=== PATIENT | male | born 1960 | race Caucasian/White ===

== ENCOUNTER 2019-06-05 17:12 | Emergency (ER) | payer MEDICARE, SELFPAY ==
[2019-06-05] VITALS (9 sets, daily range): BP systolic 98–112; BP diastolic 56–76; PULSE 80–105; RESP 12–20; TEMP 37; O2SAT 90–100
--- NOTE | ~2019-06-05 | XR_ITS ---
XR chest 2V 06/05/2019 18:24 Indication: Shortness of breath. Productive cough. Procedure: PA and lateral views of the chest Comparison: 10/29/2017 Findings: Chronic interstitial opacities predominantly affecting the lower lungs. Heart size normal. No pleural effusion or pneumothorax. No focal consolidation. Chronic apical pleural thickening. No ac three affiliated osseous abnormality. Small hiatal hernia. Impression: 1: Chronic interstitial changes of the lung bases which may reflect edema, pneumonia and/or atelectas is. Reviewed, dictated and finalized at [facility]. Reviewed, dictated and finalized at [facility]. Impression: 1: Chronic interstitial changes of the lung bases which may reflect edema, pneu monia and/or atelectasis.
--- NOTE | 2019-06-05 18:07 | ED.GENADULT ---
HPI - General Adult General Chief complaint: Upper Respiratory Infection Stated complaint: POSSIBLE PNEUMONIA Time Seen by Provider: 06/05/19 17:57 Source: patient and family Mode of arrival: ambulatory Limitations: physical limitation (Down's Syndrome) History of Present Illness HPI narrative: Pt is a 59 y/o male who presents to the ED with c/o productive cough. According to the pt's family, he was recently hospitalized for pneumonia. She notes that the pt was evaluated by his home health nurse this afternoon, and states that after she examined the pt's sputum, she advised him to come to the ED. Pt notes that he currently feels relatively okay and denies any fever, ABD pain, CP, or nausea. HPI limited due to pt's Hx of Down Syndrome. Majority of HPI given by pt's family. Associated symptoms: other (none) Related Data Home Medications Medication Instructions Recorded Confirmed cholecalciferol (vitamin D3) unit 06/05/19 [Vitamin D3] famotidine 20 mg PO DAILY 06/05/19 06/05/19 levothyroxine 75 mcg PO DAILY 06/05/19 06/05/19 olanzapine 2.5 mg PO BID 06/05/19 06/05/19 vitamin B complex 1 tablet PO DAILY 06/05/19 06/05/19 Allergies Allergy/AdvReac Type Severity Reaction Status Date / Time No Known Allergies Allergy Unknown Verified 05/23/19 14:47 Review of Systems Review of Systems: All systems reviewed & are unremarkable except as noted in HPI and below Constitutional: Constitutional: Denies fever(s) Cardiovascular: Cardiovascular: Denies chest pain Respiratory: Respiratory: Reports cough (productive) Gastrointestinal: Gastrointestinal: Denies abdominal pain and Denies nausea [facility] Past Medical History Medical History Down's syndrome (Acute) Pneumonia (Acute) Social History Social History Gender identity (if verbalized by the patient): Male Exam Const: General: no acute distress and alert HENMT: Head: normal to inspection Eyes: Pupils: PERRL Neck: Neck: normal visual inspection and no lymphadenopathy Chest: Chest palpation & inspection: normal inspection of the chest Resp: Effort & Inspection: normal respiratory effort Cardio: Rate: regular rate Rhythm: regular rhythm GI: Palpation (GI): Yes soft Skin: General skin exam: normal color Extrem: General: normal to inspection Psych: Mental Status: mental status grossly normal Course Course Emergency Course: Inform patient and the family about his lab work, chest x-ray findings. This time his O2 saturations are 96 to 97% on room air. He does feel comfortable going home. Vital Signs Vital signs: Vital Signs Temperature 37.0 C 06/05/19 17:31 Pulse Rate 80 06/05/19 17:31 Respiratory Rate 20 06/05/19 17:31 Blood Pressure 112/76 06/05/19 17:31 Pulse Oximetry 99 06/05/19 17:31 Temperature 37.0 C 06/05/19 17:31 Pulse Rate 86 06/05/19 19:15 Respiratory Rate 12 06/05/19 19:15 Blood Pressure 98/56 L 06/05/19 19:15 Pulse Oximetry 96 06/05/19 19:15 Medical Decision Making Vital Signs Vital Signs: Vital Signs Temperature 37.0 C 06/05/19 17:31 Pulse Rate 80 06/05/19 17:31 Respiratory Rate 20 06/05/19 17:31 Blood Pressure 112/76 06/05/19 17:31 Pulse Oximetry 99 06/05/19 17:31 Temperature 37.0 C 06/05/19 17:31 Pulse Rate 86 06/05/19 19:15 Respiratory Rate 12 06/05/19 19:15 Blood Pressure 98/56 L 06/05/19 19:15 Pulse Oximetry 96 06/05/19 19:15 Lab Data Result diagrams: 06/05/19 18:20 06/05/19 18:20 Labs: Lab Results 06/05/19 06/05/19 Range/Units 18:20 18:20 WBC 7.0 (4.5-10.0) K/mm3 RBC 4.09 L (4.6-6.20) M/mm3 Hgb 12.5 L (14.0-18.0) g/dL Hct 38.9 L (42.0-52.0) % MCV 95.1 (80-100) fl MCH 30.6 (26-34) pg MCHC 32.1 (32-36) g/dl RDW 16.5 H (11.5-14.5) % Plt Count 623 H (150-375) k/mm3 MPV 10.3 (7.4-10.4) fl Immature Gran % (Auto)
[2019-06-05 18:28] LABS: Basophils Absolute Auto 0.1 K/mm3 (0.0-0.1); Basophils Percent Auto 1.1 % (0.2-1.2); Eosinophils Absolute Auto 0.1 K/mm3 (0-0.3); Eosinophils Percent Auto 1.6 % (0-4.4); Hematocrit 38.9 % (42.0-52.0); Hemoglobin 12.5 g/dL (14.0-18.0); Immature Granulocyte Absolute 0.06 K/mm3 (0.00-0.031); Immature Granulocyte Percent A 0.9 % (0-0.5); Lymphocytes Absolute Auto 1.12 K/mm3 (0.9-3.2); Lymphocytes Percent Auto 15.9 % (18.3-44.2); Mean Corpuscular HGB Conc 32.1 g/dl (32-36); Mean Corpuscular Hemoglobin 30.6 pg (26-34); Mean Corpuscular Volume 95.1 fl (80-100); Mean Platelet Volume 10.3 fl (7.4-10.4); Monocytes Absolute Auto 0.4 K/mm3 (0.1-0.6); Neutrophils Absolute Auto 5.2 K/mm3 (1.3-6.7); Neutrophils Percent Auto 74.5 % (45.5-73.1); Platelet Count Result 623 k/mm3 (150-375); Red Blood Count 4.09 M/mm3 (4.6-6.20); Red Cell Distribution Width 16.5 % (11.5-14.5)
[2019-06-05 18:40] LABS: Alanine Aminotransferase 22 U/L (4-50); Albumin Level 3.8 g/dL (3.5-5.1); Alkaline Phosphatase 107 U/L (38-126); Aspartate Amino Transferase 34 U/L (17-59); Bilirubin,Total 0.2 mg/dL (0.2-1.3); Blood Urea Nitrogen 22 mg/dL (9-20); Carbon Dioxide 30 mmol/L (22-30); Chloride 105 mmol/L (98-107); Estimated CRCL calculation 51 ml/min; Estimated Glomerular Filt Rate > 60; Glucose 97 mg/dL (75-110); Potassium 4.2 mmol/L (3.4-5.0); Sodium 143 mmol/L (137-145)
[2019-06-05 18:48] LABS: NT Pro B Type Natriuretic Pept 91 PG/ML (5-100)
== END 2019-06-05 19:10 | disposition home or self-care (01) ==
PROVIDERS: Emergency Provider Family Medicine
DX: J40 Bronchitis, not specified as acute or chronic (principal); B34.9 Viral infection, unspecified; R91.8 Other nonspecific abnormal finding of lung field; Q90.9 Down syndrome, unspecified
CPT/HCPCS: 36415; 71046; 80053; 83880; 85025; 99283

== ENCOUNTER 2019-10-19 13:03 | Inpatient (IN) | payer MEDICARE, SELFPAY ==
[2019-10-19] VITALS (41 sets, daily range): BP systolic 91–130; BP diastolic 68–86; PULSE 74–88; RESP 9–21; TEMP 35.7–36.2; O2SAT 92–100; BMI 19.3
--- NOTE | ~2019-10-19 | XR_ITS ---
EXAMINATION: XR chest 1V portable DATE: 10/28/2019 05:40 INDICATION: Subacute emphysema TECHNIQUE: frontal view of the chest was obtained. COMPARISON: 10/27/2019 FINDINGS: Right internal jugular central venous catheter with distal tip near the superior cavoatrial junction. Interval decrease in the subcutaneous emphysema at the bilateral chest and neck. Patchy airspace opacities in the bilateral mid and lower lung zones. Small bilateral pleural effusion s. The cardiomediastinal silhouette is normal. Cholecystectomy clips and surgical drain in the right upper quadrant. IMPRESSION: 1. Decrease in the amount of subcutaneous emphysema at the bilateral chest and neck. 2. Bilateral basilar predominant patchy airspace opacities which could represent atelectasis and/or p neumonia. 3. Small bilateral pleural effusions. Reviewed, dictated and finalized at [facility]. IMPRESSION: 1. Decrease in the amount of subcutaneous emphysema at the bilateral chest and neck. 2. Bilateral basilar predominant patchy airspace opacities which could represen t atelectasis and/or pneumonia. 3. Small bilateral pleural effusions.
--- NOTE | ~2019-10-19 | XR_ITS ---
EXAMINATION: XR abdomen obstructive series DATE: 10/23/2019 06:34 INDICATION: Fecal impaction TECHNIQUE: Supine and upright views of the abdomen. FINDINGS: No prior studies for comparison. The visualized lung parenchyma is normal.. There is a nonobstructive bowel gas pattern. Gas and stool are seen throughout the colon to the level of the rectum. There is no free air. Moderate colonic fe sania loading. There are pelvic phleboliths. Retrocardiac airspace disease, atelectasis versus pneumoni a. IMPRESSION: 1. No acute abdominal abnormality. 2: Retrocardiac airspace disease, atelectasis versus pneumonia. Reviewed, dictated and finalized at [facility].
--- NOTE | ~2019-10-19 | XR_ITS ---
XR chest port-a-cath/central 10/27/2019 11:54 Indication: Central line placement. Procedure: AP portable chest Comparison: Comparison to multiple prior studies sequentially, with oldest reviewed study dated 10/29. Findings: Right IJ central line tip caudal aspect of the SVC. Interval development of interstitial ed demetrice. Left basilar consolidation may represent edema, atelectasis or less likely pneumonia. Interval d evelopment of extensive subcutaneous emphysema. No pneumothorax is identified. Impression: 1: Interval development of interstitial edema. 2: Focal consolidation left lower lobe may represent edema, atelectasis and/or pneumonia. 3: Extensive subcutaneous emphysema has developed since prior examination. Reviewed, dictated and finalized at [facility]. Impression: 1: Interval development of interstitial edema. 2: Focal consolidation left lower lobe may represent edema, atelectasis and/or pneumonia. 3: Extensive subcutaneous emphysema has developed since prior examination.
--- NOTE | ~2019-10-19 | CT_ITS ---
EXAMINATION: CT abdomen pelvis wo con DATE: 10/21/2019 08:36 INDICATION: Leukocytosis. Hypernatremia, hypokalemia, dehydration TECHNIQUE: Computed tomography (CT) of the abdomen and pelvis was performed without intravenous contr ast. Automated exposure control and iterative reconstruction technique were employed. Exam dose: 334 .85 mGy-cm total exam DLP. COMPARISON: None. FINDINGS: There is patchy consolidation in both lower lobes, particularly in the dependent lower lobe s, left greater than right. Heart size is within normal limits. No pericardial or pleural effusion. There is a small sliding hiatal hernia. There appears to be some circumferential soft tissue thickeni ng of the distal esophagus; consider endoscopy or upper gastrointestinal series for further evaluatio n The gallbladder is distended. There is an approximately 1 cm gallstone. Gallbladder wall thickness is not optimally determined. No pericholecystic fat stranding or fluid is evident. Consider gallbladder ultrasound for further evaluation. No bile duct or pancreatic duct dilatation. No hepatic, splenic, pancreatic, and adrenal or renal spa ce-occupying mass lesion is evident on this limited noncontrast examination. There are hepatic and more numerous splenic calcified granulomas consistent with old granulomatous di sease. There is an approximately 2.5 mm nonobstructing upper pole left renal calculus. There are 2 smaller n onobstructing lower pole left renal calculi. No right renal calculus. No ureteral calculus or hydroureteronephrosis. Normal caliber of the abdominal aorta with minimal calcification. No intraperitoneal or retroperitone al or pelvic mass lesion or adenopathy or ascites is detected. Multiple prostate calcifications. The urinary biliary bladder appears unremarkable on this limited no ncontrast examination. There is diffuse circumferential soft tissue thickening of the rectosigmoid wall, measuring up to 7 m m dimension. Consider stercoral proctitis. There is a prominent amount of fecal material within the r ectum and to lesser extent colon, with some liquid stool in the cecum and ascending and transverse co latonia. There are fluid distended nondilated small bowel segments and small bowel air-fluid levels. Othe rwise there is no bowel obstruction, bowel wall thickening, pneumatosis or intraperitoneal free air. Prominent Schmorl's nodes are noted at the superior vertebral endplate of T12 and at the vertebral en dplates at L1-2. There is severe degenerative disc disease at L2-3. IMPRESSION: Patchy consolidation in both lower lobes, left greater than right Hiatal hernia, suggestion of thickening of the distal esophageal wall, possibly due to esophagitis. C onsider upper gastrointestinal series or endoscopy for further evaluation Cholelithiasis, distended gallbladder Gallbladder wall thickness is not well demonstrated; consider gallbladder ultrasound for further eval uation Nonobstructive left nephrolithiasis Small and large bowel fluid levels, suggesting enterocolitis Up to 7 mm thickness of the rectosigmoid wall associated with fecal impaction; consider stercoral pro ctocolitis; no evidence of perforation Reviewed, dictated and finalized at [facility]. Reviewed, dictated and finalized at [facility]. IMPRESSION: Patchy consolidation in both lower lobes, left greater than right Hiatal hernia, suggestion of thickening of the distal esophageal wall, possibly due to esophagitis. Consider upper gastrointestinal series or endoscopy for fu rther evaluation Cholelithiasis, distended gallbladder Gallbladder wall thickness is not well demonstrated; consider gallbladder ultra sound for further evaluation Nonobstructive left nep
--- NOTE | ~2019-10-19 | US_ITS ---
EXAMINATION: US right upper quadrant DATE: 10/21/2019 15:11 INDICATION: Leukocytosis TECHNIQUE: Multiple grayscale and Doppler ultrasound images of the abdomen were obtained. COMPARISON: CT from today FINDINGS: Bowel gas obscures visualization of the pancreas. The visualized portions of the pancreas a re unremarkable. The liver is normal with normal echogenicity and echotexture. No surface nodularity. Normal hepatopetal flow in the main portal vein. The gallbladder is distended and contains sludge an d a 1.3 cm stone. No definite pericholecystic fluid or gallbladder wall thickening are seen. The norm al common bile duct measures 5 mm. There was no sonographic Goyal sign. IMPRESSION: 1. Cholelithiasis, gallbladder sludge, and gallbladder distention without pericholecystic fluid or ga llbladder wall thickening. Findings are equivocal for acute cholecystitis. Consider nuclear hepatobil iary scan. Reviewed, dictated and finalized at [facility]. IMPRESSION: 1. Cholelithiasis, gallbladder sludge, and gallbladder distention without peric holecystic fluid or gallbladder wall thickening. Findings are equivocal for acu te cholecystitis. Consider nuclear hepatobiliary scan.
--- NOTE | ~2019-10-19 | XR_ITS ---
EXAMINATION: XR chest 2V DATE: 10/19/2019 14:35 INDICATION: Unresponsive TECHNIQUE: frontal and lateral views of the chest were obtained. COMPARISON: Chest radiograph dated 06/05/[address] dated 05/24/2019 FINDINGS: Mild dependent atelectasis in the posterior lungs on the crosstable lateral projection. Aside from un changed mild biapical pleural-parenchymal scarring the lungs appear clear on the frontal projections with no suspicious airspace opacities, pulmonary edema, pleural effusion or pneumothorax. The cardiom ediastinal silhouette is normal. A couple small calcified paraesophageal lymph nodes project posterio r to the right heart. IMPRESSION: 1. No acute cardiopulmonary disease. Reviewed, dictated and finalized at [facility].
--- NOTE | ~2019-10-19 | NM_ITS ---
EXAMINATION: NM hepatobiliary w pharm DATE: 10/22/2019 16:24 INDICATION: Cholelithiasis presenting with dilated gallbladder and right upper quadrant pain concern ing for acute cholecystitis. COMPARISON: CT and ultrasound dated 10/21/2019 TECHNIQUE: 5.2 mCi Tc-99m mebrofenin (Choletec) was administered intravenously. Scintigraphic images of the abdomen were obtained for one hour. 2 mg morphine was administered by slow intravenous infusi on, and imaging was continued for 30 minutes. FINDINGS: There is normal clearance of radiotracer from the blood pool. There is homogeneous tracer uptake by t he liver. Activity progresses to the common bile duct and subsequently the bowel bowel. No evident a ctivity within the gallbladder either before or after morphine administration which be consistent wit h acute cholecystitis. IMPRESSION: 1. No activity within the gallbladder either before or after morphine administration consistent with acute cholecystitis. Reviewed, dictated and finalized at [facility]. IMPRESSION: 1. No activity within the gallbladder either before or after morphine administ ration consistent with acute cholecystitis.
--- NOTE | ~2019-10-19 | XR_ITS ---
EXAMINATION: XR chest 2V DATE: 11/01/2019 09:24 INDICATION: Pneumonia TECHNIQUE: frontal and lateral views of the chest were obtained. COMPARISON: Chest radiograph dated 10/29/2019 FINDINGS: Right internal jugular central venous catheter with distal tip near the superior cavoatrial junction. Small bilateral pleural effusions. Opacities in the bilateral lower lobes which could represent asso ciated atelectasis and/or pneumonia. Remainder of the lungs are clear. No pneumothorax. The cardiomed iastinal silhouette is normal. Cholecystectomy clips in the upper abdomen. IMPRESSION: 1. Small bilateral pleural effusions with opacities in the dependent bilateral lower lobes which coul d represent associated atelectasis and/or pneumonia. Reviewed, dictated and finalized at location [facility]. IMPRESSION: 1. Small bilateral pleural effusions with opacities in the dependent bilateral lower lobes which could represent associated atelectasis and/or pneumonia.
--- NOTE | ~2019-10-19 | CT_ITS ---
EXAMINATION: CT brain wo con EXAM DATE: 10/20/2019 14:26 INDICATION: Altered mental status. TECHNIQUE: Spiral CT of the head was performed without contrast. Axial, coronal and sagittal images were reviewed. The dose-length product (DLP) for this examination was 605.33 mGy-cm. The exposure w as tailored according to patient size, and iterative reconstruction (ASIR) was used as additional dos e reduction technique. Comparison is made to prior examination from 05/24/2019. FINDINGS: There is no acute intraparenchymal hemorrhage. No evidence of intraparenchymal brain mass lesion. No evidence of acute infarction. Please note that initial head CT has limited sensitivity f or small or acute infarctions. There is mild periventricular and subcortical hypodensity, nonspecific but probably related to small vessel ischemic disease. There is ventricular prominence out of prop ortion to sulci which is suspected most likely central atrophy rather than hydrocephalus. Normal pre ssure hydrocephalus cannot be excluded (clinical triad ataxia/gait disturbance, dementia, urinary inc ontinence). This does not appear significantly changed. There is intracranial carotid arterioscleros is. There are no extra-axial collections. There is no mass effect or midline shift. The orbits are unremarkable. Soft tissue is unremarkable. The visualized sinuses and mastoid air cells are well a erated. IMPRESSION: 1. No acute intracranial findings. 2. Chronic ventricular dilation, more likely central atrophy than NPH. 3. Mild microangiopathy. Reviewed, dictated and finalized at location A.
--- NOTE | ~2019-10-19 | XR_ITS ---
EXAMINATION: XR chest 1V portable INDICATION: Abnormal chest x-ray, bilateral infiltrates TECHNIQUE: Portable AP chest at 0753 hours COMPARISON: 10/28/2019 FINDINGS: A right internal jugular catheter ends with its tip at the superior cavoatrial junction. Bi basilar airspace opacities persist without significant change. There is no pleural effusion or pneumo thorax. Previously described subcutaneous edema has decreased. The cardiomediastinal silhouette is no rmal. IMPRESSION: 1. Stable bibasilar airspace opacities, consistent with atelectasis versus pneumonia. 2. Decreased subcutaneous edema. Reviewed, dictated and finalized at location B. IMPRESSION: 1. Stable bibasilar airspace opacities, consistent with atelectasis versus pneu monia. 2. Decreased subcutaneous edema.
--- NOTE | 2019-10-19 13:21 | ED.GENADULT ---
HPI - General Adult General Chief complaint: Weakness Stated complaint: weakness Time Seen by Provider: 10/19/19 13:10 Source: RN notes reviewed and other (Nursing facility staff) Mode of arrival: EMS Limitations: clinical condition History of Present Illness HPI narrative: A 59 y/o male pt presents to the ED, via EMS from nursing facility, with c/o weakness and decreased intake of food and liquid x a few days. Per RN notes, nursing facility states that the pt's family normally comes to visit/feed the pt daily and d/t recent visiting restrictions they have not been able to feed the pt. Nursing facility staff reports that the pt is not responding or receptive to staff care and pt is not eating or taking food. Pt is usually able to walk with assistance and communicate at baseline. Pt has a hx of down syndrome. A complete HPI is limited d/t pt's clinical condition. MD complaint: Weakness Onset (ago): day(s) Associated symptoms: other (decreased food and liquid intake) Related Data Home Medications Medication Instructions Recorded Confirmed cholecalciferol (vitamin D3) unit 06/05/19 [Vitamin D3] famotidine 20 mg PO DAILY 06/05/19 06/05/19 levothyroxine 75 mcg PO DAILY 06/05/19 06/05/19 olanzapine 2.5 mg PO BID 06/05/19 06/05/19 vitamin B complex 1 tablet PO DAILY 06/05/19 06/05/19 alprazolam [Xanax] 0.5 mg PO BID 10/19/19 enoxaparin [Lovenox] 40 mg SUBCUT DAILY 10/19/19 famotidine [Pepcid] 20 mg PO DAILY 10/19/19 mirtazapine [Remeron] 7.5 mg PO HS 10/19/19 paroxetine HCl 10 mg PO QAM 10/19/19 pravastatin 20 mg PO DAILY 10/19/19 Allergies Allergy/AdvReac Type Severity Reaction Status Date / Time erythromycin base Allergy Unknown Verified 10/19/19 13:31 Penicillins Allergy Unknown Verified 10/19/19 13:31 Review of Systems Review of Systems: Narrative: A complete ROS is limited d/t pt's clinical condition. Constitutional: Constitutional: Reports weakness Gastrointestinal: Gastrointestinal: Reports other (decreased intake of food and liquid) [facility] Past Medical History Medical History (Updated 10/19/19 @ 17:41 by Marlene Cary MD) Anxiety Back pain Dementia Down's syndrome Gout History of gastroesophageal reflux (GERD) History of hypercholesterolemia Hypothyroidism Pneumonia Surgical History Surgical History (Updated 10/19/19 @ 15:10 by Magdalena Zuniga [facility]) H/O inguinal hernia repair History of tonsillectomy Social History Social History Living arrangements: halfway Gender identity (if verbalized by the patient): Male Exam Narrative: Exam Narrative: General appearance: Malnourished, weak, not responding to verbal commands, no family member at the bedside Skin: Normal color Head: Normocephalic, nontraumatic Eyes: Clear conjunctiva ENT: Severe dryness of the oral cavity, Neck: Supple, nontender Chest and respiratory: Airway patent, no respiratory distress, no accessory muscle use Heart: Regular rate/rhythm Abdomen: Soft, nontender, no organomegaly, quiet bowel sounds Vascular: Normal peripheral pulses, normal capillary refill. Musculoskeletal: Normal range of motion, nontender back Neurologic: Alert and oriented ?3, PETAL CUTTER is normal as tested, no gross motor deficit Course Consultations Consultation #1: Discussed case with Fernanda Carmona NP for the hospitalist Dr. Navarro. Accepts admission. Date: 10/19/19 Time: 14:54 Vital Signs Vital signs: Vital Signs Temperature 96.3 F L 10/19/19 13:07 Pulse Rate 86 10/19/19 13:07 Respiratory Rate 14 10/19/19 13:07 Blood Pressure 110/82 10/19/19 13:07 Pulse Oximetry 95 10/19/19 13:07 Temperature 96.3 F L 10/19/19 13:07 Pulse Ra
--- NOTE | 2019-10-19 13:23 | ECG_ITS ---
Measurements Intervals [place] Rate: 83 P: 57 NE: 125 QRS: 22 QRSD: 94 T: -15 QT: 390 QTc: 460 Interpretive Statements SINUS RHYTHM BORDERLINE ST-T WAVE ABNORMALITY- DIFFUSE LEADS BASELINE ARTIFACT- I, II, AVR, AVL, AVF BORDERLINE ECG Electronically Signed On 10-19-2019 13:54:14 CDT by Homero Parikh D.O.
[2019-10-19] MEDS: SODIUM CHLORIDE 0.9% IV 1,000 ML 999 ML IV CONT (13:45)
[2019-10-19 14:16] LABS: Basophils Absolute Auto 0.1 K/mm3 (0.0-0.1); Basophils Percent Auto 0.6 % (0.2-1.2); Eosinophils Percent Auto 0.3 % (0-4.4); Hematocrit 49.6 % (42.0-52.0); Hemoglobin 15.6 g/dL (14.0-18.0); Immature Granulocyte Absolute 0.04 K/mm3 (0.00-0.031); Immature Granulocyte Percent A 0.5 % (0-0.5); Lymphocytes Absolute Auto 0.71 K/mm3 (0.9-3.2); Mean Corpuscular HGB Conc 31.5 g/dl (32-36); Mean Corpuscular Hemoglobin 27.9 pg (26-34); Mean Corpuscular Volume 88.7 fl (80-100); Mean Platelet Volume 11.9 fl (7.4-10.4); Monocytes Absolute Auto 0.4 K/mm3 (0.1-0.6); Monocytes Percent Auto 4.5 % (2.6-8.5); Neutrophils Absolute Auto 7.6 K/mm3 (1.3-6.7); Neutrophils Percent Auto 86.1 % (45.5-73.1); Platelet Count Result 388 k/mm3 (150-375); Red Blood Count 5.59 M/mm3 (4.6-6.20); Red Cell Distribution Width 21.6 % (11.5-14.5); White Blood Count 8.9 K/mm3 (4.5-10.0)
[2019-10-19 14:21] LABS: Add Urine Microscopic? YES; Appearance Urine Clear (Clear); Bilirubin Urine Negative (Negative); Blood Urine Negative (Negative); Color Urine Amber (Yellow); Glucose Urine UA Negative (Negative); Ketones Urine Trace mg/dL (Negative); Leukocyte Esterase Ur Negative LEU/UL (Negative); Mucus Urine Rare /lpf; Nitrate Urine Negative (Negative); Protein Urine 1+ mg/dL (Negative); Specific Grav Ur 1.027 (1.001-1.035); WBC Urine 0-3 /hpf
[2019-10-19 14:24] LABS: INR 1.6; Prothrombin Time 18.6 Seconds (11.1-14.7)
[2019-10-19 14:25] LABS: Partial Thromboplastin Time 37.5 SECONDS (22.3-36.8)
[2019-10-19 14:44] LABS: Lactic Acid Reflex 1.5 mmol/L (0.7-2.1)
[2019-10-19 16:56] LABS: Alanine Aminotransferase 30 U/L (4-50); Albumin Level 3.7 g/dL (3.5-5.1); Alkaline Phosphatase 161 U/L (38-126); Aspartate Amino Transferase 35 U/L (17-59); Bilirubin,Total 0.5 mg/dL (0.2-1.3); Blood Urea Nitrogen 48 mg/dL (9-20); CRP 5.3 mg/dL (<1.0); Calcium 8.8 mg/dL (8.4-10.2); Carbon Dioxide 23 mmol/L (22-30); Chloride 115 mmol/L (98-107); Estimated CRCL calculation 29 ml/min; Estimated Glomerular Filt Rate 45; Glucose 123 mg/dL (75-110); Potassium 3.3 mmol/L (3.4-5.0); Sodium 151 mmol/L (137-145)
[2019-10-19] MEDS: SODIUM CHLORIDE 0.9% IV 1,000 ML 999 ML (17:02)
[2019-10-19] MEDS: LACTATED RINGERS 1,000 ML 150 ML IV CONT (19:26)
--- NOTE | 2019-10-19 20:11 | PC.NURSE ---
1999 CHARTING DONE PER Isra PINEDA RN NOT Liat SORIA RN
--- NOTE | 2019-10-19 20:32 | PM.IMHP ---
H&P: HPI History of Present Illness Chief complaint: Hypernatremia/hypokalemia/dehydration/failure to Narrative: Lino Jackson is a 59 year old male who comes from a care center at [facility]. He is mentally challenged. Typically the family visit him and feed him but they have not been allowed to the facility for the last couple days. He has had increased weakness and decreased intake of food and liquid for several days. The patient was not eating or taking food and was not very receptive to the staff. Typically is able to walk with assistance and communicated baseline. He has a history of down syndrome. Mucous membranes are very dry. Sodium was 151. Potassium 3.3. That has been supplemented. Creatinine 1.60. Patient was started on IV fluids. Date of service 10/19/2019 Review of Systems Review of Systems: All systems reviewed & are unremarkable except as noted in HPI and below ROS unobtainable: unobtainable due to mental condition and unobtainable due to mental status Constitutional: Constitutional: Reports as per HPI and Reports no additional constitutional complaints Eyes: Eyes: Reports as per HPI and Reports no additional eye complaints ENT: Reports system reviewed and no additional complaints, except as documented and Reports Normal hearing present Cardiovascular: Cardiovascular: Reports no additional cardiovascular complaints Respiratory: Respiratory: Reports no additional respiratory complaints and Reports no additional respiratory complaints Gastrointestinal: Gastrointestinal: Reports as per HPI and Reports no additional gastrointestinal complaints Musculoskeletal: Musculoskeletal: Reports no additional musculoskeletal complaints Integumentary/Breasts: Skin/Breast: Reports system reviewed and no additional complaints, except as docu and Reports as per HPI Neurologic: Reports system reviewed and no additional complaints, except as documented, Reports as per HPI and Reports Normal hearing present Psychiatric: Psychiatric: Reports no additional psychiatric complaints and Reports as per HPI Endocrine: Endocrine: Reports no additional endocrine complaints Hematologic/Lymphatic: Hematologic/Lymphatic: Reports no additional hematologic/lymphatic complaints Allergic/Immunologic: Allergic/Immunologic: Reports no additional allergic/immunologic complaints [facility] Past Medical History Medical History Anxiety Back pain Dementia Down's syndrome Gout History of gastroesophageal reflux (GERD) History of hypercholesterolemia Hypothyroidism Pneumonia Surgical History Surgical History H/O inguinal hernia repair History of tonsillectomy Family History Family History (Updated 10/19/19 @ 20:38 by Fernanda Carmona NP) Unknown Family history unknown Social History Social History (Updated 10/19/19 @ 20:40 by Fernanda Carmona NP) Social History: He comes from [facility]. Smoking status: Never smoker Alcohol intake: never Substance use: never Living arrangements: prison Occupation/Education: other Gender identity (if verbalized by the patient): Male Spiritual care concerns: No Agree to blood products: Yes Meds Home Medications and Allergies Home Medications Medication Instructions Recorded Confirmed Type alprazolam [Xanax] 0.5 mg PO Q8H 10/19/19 10/19/19 History buspirone 5 mg PO BID 10/19/19 10/19/19 History famotidine [Pepcid] 20 mg PO DAILY 10/19/19 10/19/19 History levothyroxine 100 mcg PO DAILY 10/19/19 10/19/19 History mirtazapine [Remeron] 7.5 mg PO HS 10/19/19 10/19/19 History paroxetine HCl [Paxil] 20 mg PO QAM 10/19/19 10/19/19 History pravastatin 60 mg PO DAILY 10/19/19 10/19/19 History Allergies Allergy/AdvReac Type Severity Reaction Status Date / Time erythromycin base Allergy Unknown Verified 10/19/19 13:31 Penicillins Allergy U
[2019-10-19 21:40] LABS: Blood Urea Nitrogen 44 mg/dL (9-20); Calcium 8.1 mg/dL (8.4-10.2); Carbon Dioxide 26 mmol/L (22-30); Chloride 117 mmol/L (98-107); Estimated CRCL calculation 42 ml/min; Estimated Glomerular Filt Rate > 60; Glucose 112 mg/dL (75-110); Potassium 3.3 mmol/L (3.4-5.0); Sodium 150 mmol/L (137-145)
[2019-10-19] MEDS: busPIRone HCL 5 MG TABLET PO (21:45)
[2019-10-19] MEDS: MIRTAZAPINE 7.5 MG TABLET PO (21:45)
[2019-10-19] MEDS: ALPRAZOLAM 0.5 MG TABLET PO (21:47)
[2019-10-19] MEDS: KCL 20 MEQ/SW 100 ML 100 ML 50 MEQ IVPB (23:46)
[2019-10-20] VITALS (8 sets, daily range): BP systolic 87–117; BP diastolic 42–69; PULSE 74–103; RESP 16–21; TEMP 36.1–37; O2SAT 92–96; BMI 20.9
[2019-10-20] MEDS: LACTATED RINGERS 1,000 ML 150 ML IV CONT (02:13)
[2019-10-20 05:19] LABS: Basophils Absolute Auto 0.1 K/mm3 (0.0-0.1); Basophils Percent Auto 0.8 % (0.2-1.2); Eosinophils Absolute Auto 0.2 K/mm3 (0-0.3); Eosinophils Percent Auto 2.3 % (0-4.4); Hemoglobin 11.8 g/dL (14.0-18.0); Immature Granulocyte Absolute 0.02 K/mm3 (0.00-0.031); Immature Granulocyte Percent A 0.3 % (0-0.5); Lymphocytes Absolute Auto 0.98 K/mm3 (0.9-3.2); Lymphocytes Percent Auto 13.5 % (18.3-44.2); Mean Corpuscular HGB Conc 31.9 g/dl (32-36); Mean Corpuscular Hemoglobin 28.3 pg (26-34); Mean Corpuscular Volume 88.7 fl (80-100); Mean Platelet Volume 10.9 fl (7.4-10.4); Monocytes Absolute Auto 0.4 K/mm3 (0.1-0.6); Monocytes Percent Auto 5.4 % (2.6-8.5); Neutrophils Absolute Auto 5.6 K/mm3 (1.3-6.7); Neutrophils Percent Auto 77.7 % (45.5-73.1); Platelet Count Result 290 k/mm3 (150-375); Red Blood Count 4.17 M/mm3 (4.6-6.20); Red Cell Distribution Width 20.8 % (11.5-14.5); White Blood Count 7.2 K/mm3 (4.5-10.0)
[2019-10-20 05:35] LABS: Blood Urea Nitrogen 37 mg/dL (9-20); Calcium 8.3 mg/dL (8.4-10.2); Carbon Dioxide 27 mmol/L (22-30); Chloride 119 mmol/L (98-107); Estimated CRCL calculation 50 ml/min; Estimated Glomerular Filt Rate > 60; Glucose 92 mg/dL (75-110); Potassium 3.3 mmol/L (3.4-5.0); Sodium 149 mmol/L (137-145)
[2019-10-20] MEDS: LEVOTHYROXINE SODIUM 100 MCG TABLET PO (05:42)
[2019-10-20] MEDS: ALPRAZOLAM 0.5 MG TABLET PO ×3 (05:42→21:05)
[2019-10-20] MEDS: PAROXETINE 20 MG TABLET PO (08:24)
[2019-10-20] MEDS: PRAVASTATIN SODIUM 20 MG TABLET 60 MG PO (08:24)
[2019-10-20] MEDS: busPIRone HCL 5 MG TABLET PO ×2 (08:24→21:06)
[2019-10-20] MEDS: POTASSIUM CHLORIDE 20 MEQ TABLET 40 MEQ PO (08:24)
[2019-10-20] MEDS: FAMOTIDINE 20 MG TABLET PO (08:25)
[2019-10-20] MEDS: SODIUM CHLORIDE 0.45% 1,000 ML 100 ML IV CONT (08:30)
[2019-10-20 08:50] LABS: Influenza Control Positive
--- NOTE | 2019-10-20 10:00 | PM.IMPN ---
Progress Note: A&P Assessment and Plan (1) Acute encephalopathy: Code(s): G93.40 - Encephalopathy, unspecified Status: Acute Assessment and Plan: -----Nurse states he has made improvements since last night. He was non-verbal last night and today he ate some breakfast, took his pills, and answered some questions. He is not at his baseline at this time as he is usually pretty active. Likely d/t dehydration. No infection suspected since no fever, UA clear, and CXR clear. Blood cultures pending. Flu neg. No rashes or pain on exam to indicate other infx. Could not assess neuro exam, will do CT of the brain to ensure no CVA. Monitor. (2) Acute kidney injury: Code(s): N17.9 - Acute kidney failure, unspecified Status: Acute Assessment and Plan: -----Improved with IV fluids. BUN trending down but still elevated. (3) Dehydration: Code(s): E86.0 - Dehydration Status: Acute Assessment and Plan: ------Patient has not been eating or drinking for unclear reasons. May be because he is not able to have visitors causing some depression. He is on IV fluids now. (4) Acute hypernatremia: Code(s): E87.0 - Hyperosmolality and hypernatremia Status: Acute Assessment and Plan: -----Improving with rehydration. Was on LR and only improved by 2mmol/l in 13 hours. Will change to half normal saline and recheck sodium in 2 hours. Max goal 8mmol/l decrease in 24 hours. (5) Acute hypokalemia: Code(s): E87.6 - Hypokalemia Status: Acute Assessment and Plan: -----Due to poor oral intake. Replaced again today. Pt is now eating a bit. (6) Adult failure to thrive: Code(s): R62.7 - Adult failure to thrive Status: Acute Assessment and Plan: -----See above. (7) Down's syndrome: Code(s): Q90.9 - Down syndrome, unspecified Status: Acute Assessment and Plan: -----Patient is on Remeron Xanax and Paxil. Additional Plan elevated INR--unclear reasons. Will recheck tomorrow. LFT WNL. Time Spent With Patient Time with patient: 25 - 35 minutes Subjective Date/time seen: 10/20/19 10:00 Interval history: Pt is a 59-year-old male here for dehydration and altered mental status. Patient was seen today and answers some of my questions but not all. He says he has no pain. I talked to the nursing staff who said that he ate some of his breakfast and would answer some her questions 2. He is moving all his limbs spontaneously but would not follow commands. Nurse states he is usually pretty active at baseline. Review of Systems Review of Systems: All systems reviewed & are unremarkable except as noted in HPI and below Exam Narrative: Exam Narrative: General: Well developed well nourished patient resting in bed in NAD HEENT: normocephalic Neck: supple, webbed Neuro: Alert but would not answer questions or follow my commands. Would slightly squeeze my hand when I squeeze his and seemed weak bilaterally. Made eye contact. pupils equal and reactive. CV:RRR Resp:CTA Abd: Soft, non distended. No pain to palpation. Positive bowel sounds Extremities: No swelling, erythema, or pain to palpation. Objective Data Vital Signs Vital Signs: Vital Signs - 24 hr 10/19/19 13:07 10/19/19 13:21 10/19/19 13:30 Temperature 96.3 F L Pulse Rate 86 88 87 Respiratory Rate 14 15 14 Blood Pressure 110/82 Pulse Oximetry 95 95 97 10/19/19 13:31 10/19/19 13:45 10/19/19 14:00 Temperature Pulse Rate 86 83 87 Respiratory Rate 12 12 13 Blood Pressure 96/72 L Pulse Oximetry 97 96 92 10/19/19 14:15 10/19/19 14:20 10/19/19 14:37 Temperature Pulse Rate 84 83 87 Respiratory Rate 14 16 15 Blood Pressure 107/83 Pulse Oximetry 98 98 10/19/19 14:45 10/19/19 14:48 10/19/19 14:49 Temperature Pulse Rate 84 83 86 Respiratory Rate 17 15 19 Blood Pressure 111/78 Pulse Oximetry 96 100
--- NOTE | 2019-10-20 10:45 | PC.NURSE ---
Patient with B/P of 88/50. NA 147. Patient arouses easily to name and follows simple commands. Called Margo ROSA and reported low B/P. Orders received.
[2019-10-20 10:57] LABS: Sodium 147 mmol/L (137-145)
[2019-10-20] MEDS: LACTATED RINGERS 500 ML 999 ML (11:20)
--- NOTE | 2019-10-20 14:20 | PC.NURSE ---
Patient has not voided since early this morning. Bladder distention noted and patient grimaces and pulls away when bladder area palpated. Bladder scan reveals >530 cc urine in bladder. Called Margo ROSA and notified her of same. Orders received to straight cath patient. Patient on his way to CT scan via bed with transporter. Will cath patient upon his return to his room.
[2019-10-20] MEDS: LACTATED RINGERS 1,000 ML 100 ML IV CONT (15:25)
[2019-10-20] MEDS: POTASSIUM CHLORIDE 20 MEQ TABLET.ER PO (17:14)
[2019-10-20] MEDS: TAMSULOSIN HCL 0.4 MG CAPSULE PO (17:14)
[2019-10-20] MEDS: MIRTAZAPINE 7.5 MG TABLET PO (21:05)
[2019-10-21] VITALS (7 sets, daily range): BP systolic 93–107; BP diastolic 48–66; PULSE 70–102; RESP 16–18; TEMP 36.2–37.1; O2SAT 93–96
[2019-10-21] MEDS: LACTATED RINGERS 1,000 ML 100 ML IV CONT ×2 (01:50→13:40)
[2019-10-21] MEDS: ALPRAZOLAM 0.5 MG TABLET PO ×2 (05:55→21:04)
[2019-10-21] MEDS: LEVOTHYROXINE SODIUM 100 MCG TABLET PO (05:56)
[2019-10-21 06:19] LABS: Hemoglobin 12.7 g/dL (14.0-18.0); Mean Corpuscular HGB Conc 31.8 g/dl (32-36); Mean Corpuscular Hemoglobin 28.3 pg (26-34); Mean Corpuscular Volume 89.1 fl (80-100); Mean Platelet Volume 10.9 fl (7.4-10.4); Platelet Count Result 252 k/mm3 (150-375); Red Blood Count 4.49 M/mm3 (4.6-6.20); Red Cell Distribution Width 20.8 % (11.5-14.5); White Blood Count 13.8 K/mm3 (4.5-10.0)
[2019-10-21 06:28] LABS: INR 1.5; Prothrombin Time 17.4 Seconds (11.1-14.7)
[2019-10-21 06:36] LABS: Blood Urea Nitrogen 14 mg/dL (9-20); Calcium 8.1 mg/dL (8.4-10.2); Carbon Dioxide 27 mmol/L (22-30); Chloride 112 mmol/L (98-107); Estimated CRCL calculation 80 ml/min; Estimated Glomerular Filt Rate > 60; Glucose 100 mg/dL (75-110); Potassium 3.3 mmol/L (3.4-5.0); Sodium 144 mmol/L (137-145)
--- NOTE | 2019-10-21 08:19 | PC.NURSE ---
Pt to radiology via hospital bed.
--- NOTE | 2019-10-21 09:20 | PC.NURSE ---
Pt returned from radiology via hospital bed.
--- NOTE | 2019-10-21 10:13 | PM.IMPN ---
Progress Note: A&P Assessment and Plan (1) Pneumonia: Code(s): J18.9 - Pneumonia, unspecified organism Status: Acute Assessment and Plan: -----CT shows possible pneumonia and his white blood cell count elevated today. Will start Levaquin and Flagyl due to allergies. Unsure of his penicillin allergy, old records from previous system does not have a penicillin allergy and he was given Unasyn without issue. (2) Cholelithiasis: Code(s): K80.20 - Calculus of gallbladder without cholecystitis without obstruction Status: Acute Assessment and Plan: -----noted on CT of the abdomen. Will obtain ultrasound of the right upper quadrant. Patient is eating currently but has had decreased appetite which led him to be hospitalized. (3) Proctitis: Code(s): K62.89 - Other specified diseases of anus and rectum Status: Acute Assessment and Plan: -----likely due to fecal impaction. Will administer soapsuds enema. Patient has had a formed stool today. No abdominal pain on exam. will monitor (4) Esophagitis: Code(s): K20.9 - Esophagitis, unspecified Status: Acute Assessment and Plan: -----noted on CT. Will start Protonix b.i.d. and ask GI to see him. Could be the reason why he is dehydrated. (5) Fecal impaction: Code(s): K56.41 - Fecal impaction Status: Acute Assessment and Plan: -----will start with a soapsuds enema. I do not think the patient would be able to cooperate with a suppository. (6) Acute encephalopathy: Code(s): G93.40 - Encephalopathy, unspecified Status: Acute Assessment and Plan: -----CT of the brain negative for acute process. Patient is still tired and not answering a lot questions but he did not sleep very well overnight and he does have Down syndrome. He is not at his baseline at this time as he is usually pretty active. Likely d/t dehydration and above.Blood cultures pending. Flu neg. No rashes or pain on exam to indicate other infx. (7) Acute kidney injury: Code(s): N17.9 - Acute kidney failure, unspecified Status: Acute Assessment and Plan: -----resolved with IV fluids (8) Dehydration: Code(s): E86.0 - Dehydration Status: Acute Assessment and Plan: ------Patient has not been eating or drinking likely due to above. Continue IV fluids (9) Acute hypernatremia: Code(s): E87.0 - Hyperosmolality and hypernatremia Status: Acute Assessment and Plan: -----within normal limits today 144. Continue IV fluids and monitor (10) Acute hypokalemia: Code(s): E87.6 - Hypokalemia Status: Acute Assessment and Plan: -----Due to poor oral intake. Replaced again today. Pt is now eating a bit. (11) Adult failure to thrive: Code(s): R62.7 - Adult failure to thrive Status: Acute Assessment and Plan: -----See above. (12) Down's syndrome: Code(s): Q90.9 - Down syndrome, unspecified Status: Acute Assessment and Plan: -----Patient is on Remeron Xanax and Paxil. Additional Plan elevated INR--unclear reasons. Await right upper quadrant ultrasound. LFT WNL. Subjective Date/time seen: 10/21/19 10:13 Interval history: Pt is a 59-year-old male here for dehydration altered mental status. Patient was arousable today but did not participate or answer any questions. He did state that he was not in any pain and that he was not hungry. He would not answer any of my orientation questions and would not really follow commands. He was able to eat a few bites for me on exam. Nurse states that he was restless overnight and did not sleep much. He had some diarrhea overnight but during my exam he had a bowel movement which was formed and brown. Exam Narrative: Exam Narrative: General: Well developed well nourished patient resting in bed in NAD
[2019-10-21] MEDS: POTASSIUM CHLORIDE 20 MEQ TABLET 40 MEQ PO (10:33)
[2019-10-21] MEDS: FAMOTIDINE 20 MG TABLET PO (10:34)
[2019-10-21] MEDS: busPIRone HCL 5 MG TABLET PO ×2 (10:34→21:04)
[2019-10-21] MEDS: PAROXETINE 20 MG TABLET PO (10:34)
[2019-10-21] MEDS: POTASSIUM CHLORIDE 20 MEQ TABLET.ER PO (10:34)
[2019-10-21] MEDS: PRAVASTATIN SODIUM 20 MG TABLET 60 MG PO (10:34)
[2019-10-21] MEDS: PANTOPRAZOLE 40 MG TABLET PO ×2 (10:35→21:04)
[2019-10-21] MEDS: TAMSULOSIN HCL 0.4 MG CAPSULE PO (10:40)
--- NOTE | 2019-10-21 12:04 | WPDGICN ---
Assessment and Plan Assessment and plan (1) Abnormal CT scan, esophagus: Code(s): R93.3 - Abnormal findings on diagnostic imaging of other parts of digestive tract Status: Acute Assessment and Plan: probably he has esophagitis, continue with ppi and will do EGD tomorrow to assess (2) Dehydration: Code(s): E86.0 - Dehydration Status: Acute Assessment and Plan: poor oral intake, also NERY and high na improving with supportive care (3) Down's syndrome: Code(s): Q90.9 - Down syndrome, unspecified Status: Acute (4) Pneumonia: Qualifiers: Pneumonia type: due to unspecified organism Laterality: bilateral Lung location: lower lobe of lung Qualified Code(s): J18.9 - Pneumonia, unspecified organism Code(s): J18.9 - Pneumonia, unspecified organism Status: Acute Assessment and Plan: continue with iv abx, influenza negative (5) Cholelithiasis: Qualifiers: Cholelithiasis location: gallbladder Cholecystitis presence: without cholecystitis Biliary obstruction: without biliary obstruction Qualified Code(s): K80.20 - Calculus of gallbladder without cholecystitis without obstruction Code(s): K80.20 - Calculus of gallbladder without cholecystitis without obstruction Status: Acute Assessment and Plan: abdominal ultrasound pending (6) Proctitis: Code(s): K62.89 - Other specified diseases of anus and rectum Status: Acute Assessment and Plan: probably fecal impaction, give enema prn (7) Acute encephalopathy: Code(s): G93.40 - Encephalopathy, unspecified Status: Acute Assessment and Plan: multifactorial given malnutrition, dehydration and pneumonia (8) Acute kidney injury: Code(s): N17.9 - Acute kidney failure, unspecified Status: Acute GI Consult Note Consult date/time: 10/21/19 12:04 Reason for consult: nausea and vomiting, abnormal esophagus by CT scan HPI: Lino Jackson is a 59 year old male with history of Down syndrome- could not get history from him. He came from a care center at [facility], based on notes normally his family visit him and feed him but they have not been allowed to the facility for the last few days because quarantine given current coronavirus condition. Apparently he has not been eating much and staff noted change in clinical condition and brought to ED. He was diagnosed with dehydration, hypernatremia with Sodium 151. Also NERY with Creatinine 1.60. CT scan showed patchy consolidation in both lower lobes, hiatal hernia, suggestion of thickening of the distal esophageal wall, possibly due to esophagitis, cholelithiasis, distended gallbladder, possible enterocolitis and up to 7 mm thickness of the rectosigmoid wall associated with fecal impaction; consider stercoral proctocolitis; no evidence of perforation. Review of Systems Review of Systems: ROS unobtainable: unobtainable due to mental status PMFSH Past Medical History Medical History (Updated 10/21/19 @ 12:13 by Julio Currie MD) Abnormal CT scan, esophagus Anxiety Back pain Dementia Down's syndrome Gout History of gastroesophageal reflux (GERD) History of hypercholesterolemia Hypothyroidism Pneumonia Surgical History Surgical History H/O inguinal hernia repair History of tonsillectomy Family History Family History (Updated 10/19/19 @ 20:38 by Fernanda Carmona NP) Unknown Family history unknown Social History Social History (Updated 10/19/19 @ 20:40 by Fernanda Carmona NP) Social History: He comes from [facility]. Smoking status: Never smoker Alcohol intake: never Substance use: never Living arrangements: group home Occupation/Education: other Gender identity (if verbalized by the patient): Male Spiritual care concerns: No Agree to blood products: Yes Med
[2019-10-21] MEDS: metroNIDAZOLE 500 MG/ISO 100ML 500 MG/100 ML BAG 100 MG IVPB (13:39)
--- NOTE | 2019-10-21 14:46 | PC.NURSE ---
Pt to ultrasound via hospital bed.
[2019-10-21] MEDS: POTASSIUM CHLORIDE 20 MEQ TABLET PO (18:07)
[2019-10-21] MEDS: MIRTAZAPINE 7.5 MG TABLET PO (21:04)
[2019-10-22] VITALS (10 sets, daily range): BP systolic 92–112; BP diastolic 46–88; PULSE 63–86; RESP 16–20; TEMP 36.2–36.8; O2SAT 92–96
[2019-10-22] MEDS: LACTATED RINGERS 1,000 ML 100 ML IV CONT ×2 (01:05→19:47)
[2019-10-22 05:21] LABS: Hematocrit 35.3 % (42.0-52.0); Hemoglobin 11.4 g/dL (14.0-18.0); Mean Corpuscular HGB Conc 32.3 g/dl (32-36); Mean Corpuscular Hemoglobin 28.2 pg (26-34); Mean Corpuscular Volume 87.4 fl (80-100); Mean Platelet Volume 10.8 fl (7.4-10.4); Platelet Count Result 203 k/mm3 (150-375); Red Blood Count 4.04 M/mm3 (4.6-6.20); Red Cell Distribution Width 19.9 % (11.5-14.5); White Blood Count 6.3 K/mm3 (4.5-10.0)
[2019-10-22 05:43] LABS: Blood Urea Nitrogen 7 mg/dL (9-20); Calcium 7.9 mg/dL (8.4-10.2); Carbon Dioxide 30 mmol/L (22-30); Chloride 107 mmol/L (98-107); Estimated CRCL calculation 80 ml/min; Estimated Glomerular Filt Rate > 60; Glucose 85 mg/dL (75-110); Phosphorus 1.3 mg/dL (2.5-4.5); Potassium 3.1 mmol/L (3.4-5.0); Sodium 141 mmol/L (137-145)
[2019-10-22 05:47] LABS: CRP 14.6 mg/dL (<1.0)
[2019-10-22] MEDS: POTASSIUM PHOS,M-BASIC-D-BASIC 20 MMOL in SODIUM CHLORIDE 0.9% IV 250 ML 64 MMOL IVPB (09:25)
--- NOTE | 2019-10-22 10:25 | PC.NURSE ---
Pt to GI lab via stretcher, IV intact.
[2019-10-22] MEDS: LACTATED RINGERS 1,000 ML 150 ML IV CONT ×2 (10:38→11:35)
--- NOTE | 2019-10-22 10:41 | WPDANESEPPF ---
Anes - Initial Pre Proc Eval Procedure: Operation Date: 10/22/19 12:00 Proposed Procedures p Esophagogastroduodenoscopy - Julio Currie MD Date/Time: 10/22/19 10:41 Surgeon: Margo Titus PA-C Pre Op Diagnosis: Hypernatremia/hypokalemia/dehydration/failure to Patient Data Age: 59 Gender: M Height: 5 ft Weight: 48.8 kg Last Vital Signs Temp 98.3 F 10/22/19 10:29 Pulse 83 10/22/19 10:29 Resp 18 10/22/19 10:29 BP 92/46 L 10/22/19 10:29 Pulse Ox 93 10/22/19 10:29 Allergies Allergy/AdvReac Type Severity Reaction Status Date / Time erythromycin base Allergy Unknown Verified 10/22/19 10:28 Penicillins Allergy Unknown Verified 10/22/19 10:28 Home Medications Medication Instructions Recorded Confirmed Type alprazolam [Xanax] 0.5 mg PO Q8H 10/19/19 10/19/19 History buspirone 5 mg PO BID 10/19/19 10/19/19 History famotidine [Pepcid] 20 mg PO DAILY 10/19/19 10/19/19 History levothyroxine 100 mcg PO DAILY 10/19/19 10/19/19 History mirtazapine [Remeron] 7.5 mg PO HS 10/19/19 10/19/19 History paroxetine HCl [Paxil] 20 mg PO QAM 10/19/19 10/19/19 History pravastatin 60 mg PO DAILY 10/19/19 10/19/19 History Laboratory Tests 10/22/19 10/22/19 10/22/19 04:58 04:58 04:58 WBC 6.3 K/mm3 K/mm3 (4.5-10.0) RBC 4.04 M/mm3 L M/mm3 (4.6-6.20) Hgb 11.4 g/dL L g/dL (14.0-18.0) Hct 35.3 % L % (42.0-52.0) MCV 87.4 fl fl (80-100) MCH 28.2 pg pg (26-34) MCHC 32.3 g/dl g/dl (32-36) RDW 19.9 % H % (11.5-14.5) Plt Count 203 k/mm3 k/mm3 (150-375) MPV 10.8 fl H fl (7.4-10.4) Sodium 141 mmol/L mmol/L (137-145) Potassium 3.1 mmol/L L mmol/L (3.4-5.0) Chloride 107 mmol/L mmol/L (98-107) Carbon Dioxide 30 mmol/L mmol/L (22-30) BUN 7 mg/dL L D mg/dL (9-20) Creatinine 0.60 mg/dL L mg/dL (0.7-1.3) Estim Creat Clear Calc 80 ml/min ml/min Estimated GFR > 60 (59 - ) Glucose 85 mg/dL mg/dL (75-110) Calcium 7.9 mg/dL L mg/dL (8.4-10.2) Phosphorus 1.3 mg/dL L mg/dL (2.5-4.5) C-Reactive Protein 14.6 mg/dL H mg/dL (<1.0) TSH (Reflex) 2.600 uIU/mL uIU/mL (0.465-4.68) Patient hx anesthesia problems: none Family hx anesthesia problems: none PMFSH Past Medical History Medical History (Updated 10/21/19 @ 12:13 by Julio Currie MD) Abnormal CT scan, esophagus Anxiety Back pain Dementia Down's syndrome Gout History of gastroesophageal reflux (GERD) History of hypercholesterolemia Hypothyroidism Pneumonia Surgical History Surgical History H/O inguinal hernia repair History of tonsillectomy Family History Family History (Updated 10/19/19 @ 20:38 by Fernanda Carmona NP) Unknown Family history unknown Social History Social History (Updated 10/19/19 @ 20:40 by Fernanda Carmona NP) Social History: He comes from [facility]. Smoking status: Never smoker Alcohol intake: never Substance use: never Living arrangements: jail Occupation/Education: other Gender identity (if verbalized by the patient): Male Spiritual care concerns: No Agree to blood products: Yes Anes - Eval Final PreProcedure Day of Procedure 10/22/19 10:41 Patient weight: normal Heart: regular rate and rhythm Lungs: clear to auscultation Airway: Mallampati scale class III Neurological: alert and oriented Last oral intake: >/= 8 hours ASA classification: III Emergent: no Anesthetic plan: proceed Anesthesia type and monitoring: general GIVS and standard monitoring Informed Consent: The patient's anesthetic plan and its attendant risks and benefits were discussed with the patient/family/POA. Questions were solicited and answers provided to the sat
--- NOTE | 2019-10-22 12:00 | PC.NURSE ---
pt returned from GI lab via stretcher.
--- NOTE | 2019-10-22 12:12 | PM.IMPN ---
Progress Note: A&P Assessment and Plan (1) Pneumonia: Qualifiers: Pneumonia type: due to unspecified organism Laterality: bilateral Lung location: lower lobe of lung Qualified Code(s): J18.9 - Pneumonia, unspecified organism Code(s): J18.9 - Pneumonia, unspecified organism Status: Acute Assessment and Plan: -----CT shows possible pneumonia and his white blood cell count elevated 10/20. WBC normal. Continue levaquin and flagyl. Unsure of his penicillin allergy, old records from previous system does not have a penicillin allergy and he was given Unasyn without issue. (2) Cholelithiasis: Qualifiers: Cholelithiasis location: gallbladder Cholecystitis presence: without cholecystitis Biliary obstruction: without biliary obstruction Qualified Code(s): K80.20 - Calculus of gallbladder without cholecystitis without obstruction Code(s): K80.20 - Calculus of gallbladder without cholecystitis without obstruction Status: Acute Assessment and Plan: -----noted on CT of the abdomen. U/S shows possible cholecystitis and the patient had pain in the right upper quadrant today. Will obtain HIDA scan. Patient has not been eating much lately (3) Proctitis: Code(s): K62.89 - Other specified diseases of anus and rectum Status: Acute Assessment and Plan: -----likely due to fecal impaction. Will continue enemas. Last few stools have been recorded as lose/soft formed stool 10/20. (4) Esophagitis: Code(s): K20.9 - Esophagitis, unspecified Status: Acute Assessment and Plan: -----noted on CT but ruled out with EGD today. Gastritis noted. Continue Protonix. (5) Fecal impaction: Code(s): K56.41 - Fecal impaction Status: Acute Assessment and Plan: -----enema given 10/20 and has been having good amount of stool. No pain in the left lower quadrant. Will order KUB for tomorrow morning. (6) Acute encephalopathy: Code(s): G93.40 - Encephalopathy, unspecified Status: Acute Assessment and Plan: -----CT of the brain negative for acute process. Patient is not answering a lot questions. I have called his family today and have not heard back from them. Trying to get an adequate baseline. Nursing staff earlier this week, who had them last time he was here, says he is usually more active. Blood cultures negative so far. Flu neg. No rashes or pain on exam to indicate other infx. (7) Acute kidney injury: Code(s): N17.9 - Acute kidney failure, unspecified Status: Acute Assessment and Plan: -----resolved with IV fluids (8) Dehydration: Code(s): E86.0 - Dehydration Status: Acute Assessment and Plan: ------Patient has not been eating or drinking likely due to above. Continue IV fluids (9) Acute hypernatremia: Code(s): E87.0 - Hyperosmolality and hypernatremia Status: Acute Assessment and Plan: -----within normal limits today 141. Continue IV fluids and monitor (10) Acute hypokalemia: Code(s): E87.6 - Hypokalemia Status: Acute Assessment and Plan: -----Due to poor oral intake. Replaced IV today. Pt is now eating a bit. Phosphate also replaced (11) Adult failure to thrive: Code(s): R62.7 - Adult failure to thrive Status: Acute Assessment and Plan: -----See above. (12) Down's syndrome: Code(s): Q90.9 - Down syndrome, unspecified Status: Acute Assessment and Plan: -----Patient is on Remeron Xanax and Paxil. Additional Plan elevated INR--unclear reasons. Await right upper quadrant ultrasound. LFT WNL. Subjective Date/time seen: 10/22/19 12:12 Interval history: Pt is a 59-year-old male here for dehydration altered mental status. Patient was seen today and about as interactive as he has been. He says he is not in any pain and was
--- NOTE | 2019-10-22 12:47 | P.CDI_ITS ---
CDI Query Clarification Request -Acute encephalopathy has been documented. Please further specify type of encephalopathy: * Metabolic * Toxic * Hepatic * Hypertensive * Other * Unable to determine
--- NOTE | 2019-10-22 12:47 | WPDCDIQUERY2 ---
CDI Query Clarification Request -Acute encephalopathy has been documented. Please further specify type of encephalopathy: Metabolic Toxic Hepatic Hypertensive Other Unable to determine
--- NOTE | 2019-10-22 14:10 | PC.NURSE ---
pt to nuclear medicine via hospital bed.
--- NOTE | 2019-10-22 14:30 | PCNFU ---
Nutrition Follow-Up Complete: Alerted Nutrition Related Laboratory Values as evidenced by hypernatremia as evidenced by Na 149 Meet estimated energy needs Goal:limited progress towards goal. Pt current nutrition is NPO. Nutrition recommendation: NPO at this time. Last recorded weight is 48.8 kg. Bowel Motility:+BM documented for 10/21/19 Labs Reviewed: K 3.1,BUN 7,Cr 0.6,PO4 1.3 Meds Noted:Remeron,Paxil, Zanax. Additional Notes: Na 141 WNL. Patient remains NPO for Ultrasound and EGD today. Speech orders for treat and evaluate, Will await speech recommendations. Will monitor every 3 days.
[2019-10-22] MEDS: MORPHINE SULFATE 2 MG/ML INJ IV PUSH (15:47)
--- NOTE | 2019-10-22 16:27 | PC.NURSE ---
Pt returned from nuclear medicine via hospital bed.
[2019-10-22] MEDS: metroNIDAZOLE 500 MG/ISO 100ML 500 MG/100 ML BAG 100 MG IVPB (18:33)
[2019-10-22] MEDS: busPIRone HCL 5 MG TABLET PO (19:48)
[2019-10-22] MEDS: PANTOPRAZOLE 40 MG TABLET PO (19:48)
[2019-10-22] MEDS: ALPRAZOLAM 0.5 MG TABLET PO (19:49)
[2019-10-22] MEDS: MIRTAZAPINE 7.5 MG TABLET PO (19:49)
[2019-10-23] MEDS: metroNIDAZOLE 500 MG/ISO 100ML 500 MG/100 ML BAG 100 MG IVPB ×5 (00:16→23:22)
[2019-10-23 02:00] VITALS: BP 108/57; PULSE 100; RESP 18; TEMP 37; O2SAT 94
[2019-10-23 05:50] LABS: Hematocrit 38.7 % (42.0-52.0); Hemoglobin 12.6 g/dL (14.0-18.0); Mean Corpuscular HGB Conc 32.6 g/dl (32-36); Mean Corpuscular Hemoglobin 28.2 pg (26-34); Mean Corpuscular Volume 86.6 fl (80-100); Platelet Count Result 202 k/mm3 (150-375); Red Blood Count 4.47 M/mm3 (4.6-6.20); Red Cell Distribution Width 19.9 % (11.5-14.5); White Blood Count 8.1 K/mm3 (4.5-10.0)
[2019-10-23] MEDS: ALPRAZOLAM 0.5 MG TABLET PO (05:59)
[2019-10-23] MEDS: LEVOTHYROXINE SODIUM 100 MCG TABLET PO (05:59)
[2019-10-23 06:00] VITALS: BP 106/57; PULSE 96; RESP 18; TEMP 36.8; O2SAT 96
[2019-10-23 06:43] LABS: Alanine Aminotransferase 16 U/L (4-50); Albumin Level 2.9 g/dL (3.5-5.1); Alkaline Phosphatase 138 U/L (38-126); Aspartate Amino Transferase 26 U/L (17-59); Bilirubin,Total 0.3 mg/dL (0.2-1.3); Blood Urea Nitrogen 4 mg/dL (9-20); Calcium 8.2 mg/dL (8.4-10.2); Carbon Dioxide 30 mmol/L (22-30); Chloride 101 mmol/L (98-107); Estimated CRCL calculation 94 ml/min; Estimated Glomerular Filt Rate > 60; Glucose 97 mg/dL (75-110); Magnesium 1.7 mg/dL (1.6-2.3); Phosphorus 2.9 mg/dL (2.5-4.5); Potassium 2.8 mmol/L (3.4-5.0); Sodium 140 mmol/L (137-145)
[2019-10-23] MEDS: LACTATED RINGERS 1,000 ML 100 ML IV CONT ×2 (07:30→23:39)
[2019-10-23] MEDS: MAGNESIUM SULF 2 GM/WATER 50ML 2 GM/50 ML BAG IVPB (08:07)
[2019-10-23] MEDS: FAMOTIDINE 20 MG TABLET PO (09:15)
[2019-10-23] MEDS: busPIRone HCL 5 MG TABLET PO ×2 (09:15→20:09)
[2019-10-23] MEDS: ENOXAPARIN 40 MG/0.4 ML SYRINGE SUB-Q (09:15)
[2019-10-23] MEDS: PRAVASTATIN SODIUM 20 MG TABLET 60 MG PO (09:15)
[2019-10-23] MEDS: PAROXETINE 20 MG TABLET PO (09:16)
[2019-10-23] MEDS: POTASSIUM CHLORIDE 20 MEQ TABLET.ER PO (09:16)
--- NOTE | 2019-10-23 10:35 | PM.IMPN ---
Progress Note: A&P Assessment and Plan (1) Cholelithiasis: Qualifiers: Cholelithiasis location: gallbladder Cholecystitis presence: without cholecystitis Biliary obstruction: without biliary obstruction Qualified Code(s): K80.20 - Calculus of gallbladder without cholecystitis without obstruction Code(s): K80.20 - Calculus of gallbladder without cholecystitis without obstruction Status: Acute Assessment and Plan: -----patient has not been eating for a week, has pain in the right upper quadrant, and has evidence of acute cholecystitis on CT, ultrasound, and HIDA scan. I have consulted General surgery and spoke to the mother about this. Will do low-fat diet at this time. Nurse states that he does not take liquids very well but does eat solid food. (2) Pneumonia: Qualifiers: Pneumonia type: due to unspecified organism Laterality: bilateral Lung location: lower lobe of lung Qualified Code(s): J18.9 - Pneumonia, unspecified organism Code(s): J18.9 - Pneumonia, unspecified organism Status: Acute Assessment and Plan: -----CT shows possible pneumonia and his white blood cell count elevated 10/20. WBC normal. Continue levaquin and flagyl. Unsure of his penicillin allergy, old records from previous system does not have a penicillin allergy and he was given Unasyn without issue. (3) Proctitis: Code(s): K62.89 - Other specified diseases of anus and rectum Status: Acute Assessment and Plan: -----likely resolved. Due to fecal impaction. Abdominal x-ray shows moderate colonic fecal loading and we will continue on a bowel regimen. (4) Esophagitis: Code(s): K20.9 - Esophagitis, unspecified Status: Acute Assessment and Plan: -----noted on CT but ruled out with EGD today. Gastritis noted. Continue Protonix. (5) Fecal impaction: Code(s): K56.41 - Fecal impaction Status: Acute Assessment and Plan: -----enema given 10/20 in new x-ray does not show any fecal ball but shows moderate stool amount. Will continue a bowel regimen. (6) Acute kidney injury: Code(s): N17.9 - Acute kidney failure, unspecified Status: Acute Assessment and Plan: -----resolved with IV fluids (7) Dehydration: Code(s): E86.0 - Dehydration Status: Acute Assessment and Plan: ------Patient has not been eating or drinking likely due to above. Continue IV fluids (8) Acute hypernatremia: Code(s): E87.0 - Hyperosmolality and hypernatremia Status: Acute Assessment and Plan: -----within normal limits today 140. Continue IV fluids and monitor (9) Acute hypokalemia: Code(s): E87.6 - Hypokalemia Status: Acute Assessment and Plan: -----Due to poor oral intake. It was replaced by IV yesterday and the potassium is still low. I will give him magnesium, IV potassium, and repeat another bag of IV potassium later tonight. Recheck in the morning. (10) Adult failure to thrive: Code(s): R62.7 - Adult failure to thrive Status: Acute Assessment and Plan: -----See above. (11) Down's syndrome: Code(s): Q90.9 - Down syndrome, unspecified Status: Acute Assessment and Plan: -----Patient is on Remeron Xanax and Paxil. Additional Plan elevated INR--unclear reasons. No signs of liver disease. Will draw again tomorrow since he may have surgery Subjective Date/time seen: 10/23/19 10:36 Interval history: Pt is a 59-year-old male here for dehydration altered mental status. Patient was seen today and about as interactive as he has been. He says he is not in any pain and was resisting me pulling the covers back during my exam. He would not answer any other questions. I spoke to his mother today who confirmed that family is acting is usually how he is. She says that he is tired all the time and slee
--- NOTE | 2019-10-23 10:54 | PCSTNOTE ---
Addendum entered by Lino Borden, TRACK GRINDER OPERATOR 10/23/19 10:56: Communication/swallow evaluation attempted. Original Note: Bedside Swallow Evaluation attempted at 0900 and 1030 but pt was unresponsive and could not be roused to eat/drink/answer questions.
--- NOTE | 2019-10-23 11:09 | WPDANESPN ---
Anes - Prog Note Post-Op Date/Time: 10/23/19 11:09 Cardiovascular status: normal Respiratory status: normal Airway patency: baseline Mental status: baseline Post-Op hydration status: normal Vital Signs: Last Vital Signs Temp 36.8 C 10/23/19 06:00 Pulse 96 10/23/19 06:00 Resp 18 10/23/19 06:00 BP 106/57 L 10/23/19 06:00 Pulse Ox 96 10/23/19 06:00 I/O: Intake & Output 10/22/19 10/23/19 10/23/19 23:59 07:59 15:59 Intake Total 50 1200 100 Balance 50 1200 100 Laboratory Tests 10/23/19 05:19 10/23/19 05:19 10/23/19 10/23/19 05:19 05:19 WBC 8.1 RBC 4.47 L Hgb 12.6 L Hct 38.7 L MCV 86.6 MCH 28.2 MCHC 32.6 RDW 19.9 H Plt Count 202 MPV 11.0 H Sodium 140 Potassium 2.8 L* Chloride 101 Carbon Dioxide 30 BUN 4 L Creatinine 0.50 L Estim Creat Clear Calc 94 Estimated GFR > 60 Glucose 97 Calcium 8.2 L Phosphorus 2.9 Magnesium 1.7 Total Bilirubin 0.3 Direct Bilirubin 0.0 AST 26 ALT 16 Alkaline Phosphatase 138 H Total Protein 6.0 L Albumin 2.9 L Post-procedural complaints: none Patient Feedback: Patient satisfied with anesthetic care.
--- NOTE | 2019-10-23 11:50 | PM.CNGS ---
Assessment and Plan Assessment and plan (1) Abnormal findings on imaging of biliary tract: Code(s): R93.2 - Abnormal findings on diagnostic imaging of liver and biliary tract Status: Acute Assessment and Plan: Imaging results are certainly suggestive of cholecystitis and gallstones. Patient very difficult to assess particularly right now as he is not at all awake. Nursing does not report any complaints of abdominal pain. He has no tenderness in the right upper quadrant. We could certainly proceed with laparoscopic cholecystectomy but would like to confer with hospitalist about the appropriate time for this as he does have a diagnosis of pneumonia. I will follow along with you. Continue IV antibiotics. Hopefully mental status will improve. (2) Dehydration: Code(s): E86.0 - Dehydration Status: Acute Assessment and Plan: Improved since admission (3) Down's syndrome: Code(s): Q90.9 - Down syndrome, unspecified Status: Acute (4) Pneumonia: Qualifiers: Pneumonia type: due to unspecified organism Laterality: bilateral Lung location: lower lobe of lung Qualified Code(s): J18.9 - Pneumonia, unspecified organism Code(s): J18.9 - Pneumonia, unspecified organism Status: Acute Assessment and Plan: On IV antibiotics and not currently requiring any oxygen. History of Present Illness Consult details Consult date: 10/23/19 Reason for consult: gallstones Narrative: The patient is a 59-year-old man who has Down syndrome and has been in a longterm for some time. He came to the emergency room on 10/19/2019 as he was very weak and not eating. Due to the plata virus precautions, family are not allowed in the longterm. Patient was usually fed by his family and generally does not eat for Staph. He came to the emergency room was noted to have a low temperature but a normal white count. He had an elevated serum sodium of 151. His potassium was low and actually dropped to as low as 2.8. He had a normal white count and normal liver function tests. He was felt to be dehydrated and was admitted and given fluids. On 10/[address] scan of the abdomen and pelvis. This showed some patchy consolidation of both lower lobes of the lung. It showed a hiatal hernia fecal impaction and gallstones with a distended gallbladder. Also on 10/21/2019 the patient had an ultrasound which also showed gallstones sludge and distention of the gallbladder but no gallbladder wall thickening or pericholecystic fluid. On October 21, yesterday, he had a HIDA scan which showed nonvisualization of the gallbladder even after being given morphine. The patient is been very somnolent while in the hospital although apparently mental status has improved. He has been difficult to get any history. Currently on seeing him this afternoon, he is sleeping and nonresponsive. Nursing does tell me that he was more awake and alert earlier in the morning. Yesterday particularly, he was more alert. The patient was seen by Gastroenterology and yesterday he had an EGD which showed gastritis but no esophagitis. He was recommended to be on proton pump inhibitors twice a day. Patient is currently seen in consultation regarding his poor eating and abnormal gallbladder imaging. Review of Systems Review of Systems: All systems reviewed & are unremarkable except as noted in HPI and below ROS unobtainable: unobtainable due to mental condition and unobtainable due to mental status PMFSH Past Medical History Medical History Abnormal CT scan, esophagus Anxiety Back pain Dementia Down's syndrome Gout History of gastroesophageal reflux (GERD) History of hypercholesterolemia Hypothyroidism Pneumonia Surgical History Surgical History H/O inguinal hernia repair History of tonsillectomy Family History Fami
[2019-10-23 14:00] VITALS: BP 92/60; PULSE 86; RESP 14; TEMP 37.1; O2SAT 91
[2019-10-23] MEDS: PANTOPRAZOLE SODIUM IV 40 MG VIAL IV PUSH ×2 (14:08→20:09)
[2019-10-23 18:00] VITALS: BP 92/63; PULSE 90; RESP 14; TEMP 36.8; O2SAT 92
[2019-10-23 20:00] VITALS: BP 82/57
[2019-10-23] MEDS: MIRTAZAPINE 7.5 MG TABLET PO (20:09)
[2019-10-23] MEDS: SENNA/DOCUSATE SODIUM TABLET 1 TAB PO (20:09)
[2019-10-23 21:19] VITALS: BP 82/57; PULSE 78; RESP 16; TEMP 36.9; O2SAT 95
[2019-10-24] VITALS (7 sets, daily range): BP systolic 88–96; BP diastolic 45–71; PULSE 64–90; RESP 14–18; TEMP 36.2–37.1; O2SAT 93–95
[2019-10-24 05:31] LABS: Hematocrit 39.7 % (42.0-52.0); Hemoglobin 12.7 g/dL (14.0-18.0); Mean Corpuscular Volume 87.4 fl (80-100); Mean Platelet Volume 11.3 fl (7.4-10.4); Platelet Count Result 218 k/mm3 (150-375); Red Blood Count 4.54 M/mm3 (4.6-6.20); Red Cell Distribution Width 20.1 % (11.5-14.5); White Blood Count 11.2 K/mm3 (4.5-10.0)
[2019-10-24] MEDS: metroNIDAZOLE 500 MG/ISO 100ML 500 MG/100 ML BAG 100 MG IVPB ×3 (05:31→17:09)
[2019-10-24] MEDS: LEVOTHYROXINE SODIUM 100 MCG TABLET PO (05:32)
[2019-10-24 05:45] LABS: INR 1.5; Prothrombin Time 17.6 Seconds (11.1-14.7)
[2019-10-24 05:46] LABS: Blood Urea Nitrogen 5 mg/dL (9-20); Carbon Dioxide 30 mmol/L (22-30); Chloride 104 mmol/L (98-107); Estimated CRCL calculation 94 ml/min; Estimated Glomerular Filt Rate > 60; Glucose 101 mg/dL (75-110); Potassium 3.5 mmol/L (3.4-5.0); Sodium 138 mmol/L (137-145)
--- NOTE | 2019-10-24 08:22 | PM.IMPN ---
Progress Note: A&P Assessment and Plan (1) Prolonged pt (prothrombin time): Code(s): R79.1 - Abnormal coagulation profile Status: Acute Assessment and Plan: -----Prolonged PTT and PT. Rewiew of old records indicate this is new. No evidence of liver disease on imaging or labs. Factor deficencies (V, X, II) seem less likely because no abnormalities of PTT and PT in the past. ddx- Vit k deficiency due to poor diet? DIC? Lupus affecting factor II (less likely). PT and PTT are stable and not worsening. He was not on any anticoagulants on admission when this was high but was started on lovenox 10/22. Will obtain fibrinogen and trombin time and consult hematology. Will give one dose of vit K (2) Cholelithiasis: Qualifiers: Biliary obstruction: without biliary obstruction Cholecystitis presence: without cholecystitis Cholelithiasis location: gallbladder Qualified Code(s): K80.20 - Calculus of gallbladder without cholecystitis without obstruction Code(s): K80.20 - Calculus of gallbladder without cholecystitis without obstruction Status: Acute Assessment and Plan: -----patient has not been eating for a week and has evidence of acute cholecystitis on CT, ultrasound, and HIDA scan. No pain on palpation today. General sx note reviewed. I do not think his respiratory issues would prohibit sx since his latest abdominal xray shows the lung bases that look okay and pt is not having further hypoxia or SOB. CT findings may be atelectasis as detailed below. (3) Pneumonia: Qualifiers: Laterality: bilateral Lung location: lower lobe of lung Pneumonia type: due to unspecified organism Qualified Code(s): J18.9 - Pneumonia, unspecified organism Code(s): J18.9 - Pneumonia, unspecified organism Status: Ruled-out Assessment and Plan: -----CT shows possible pneumonia and his white blood cell count elevated 10/20 and again today 10/23. Continue levaquin and flagyl which covers acute cholecystitis and possible PNA although lungs may just be showing atelectasis. Unsure of his penicillin allergy, old records from previous system does not have a penicillin allergy and he was given Unasyn without issue. (4) Proctitis: Code(s): K62.89 - Other specified diseases of anus and rectum Status: Acute Assessment and Plan: -----likely resolved. Due to fecal impaction. Abdominal x-ray shows moderate colonic fecal loading and we will continue on a bowel regimen. (5) Esophagitis: Code(s): K20.9 - Esophagitis, unspecified Status: Acute Assessment and Plan: -----noted on CT but ruled out with EGD. Gastritis noted. Continue Protonix. (6) Fecal impaction: Code(s): K56.41 - Fecal impaction Status: Acute Assessment and Plan: -----enema given 10/22 with good return. Will continue a bowel regimen. (7) Acute kidney injury: Code(s): N17.9 - Acute kidney failure, unspecified Status: Acute Assessment and Plan: -----resolved with IV fluids (8) Dehydration: Code(s): E86.0 - Dehydration Status: Acute Assessment and Plan: ------Patient has not been eating or drinking likely due to above. Continue IV fluids (9) Acute hypernatremia: Code(s): E87.0 - Hyperosmolality and hypernatremia Status: Acute Assessment and Plan: -----within normal limits today 138. Continue IV fluids and monitor (10) Acute hypokalemia: Code(s): E87.6 - Hypokalemia Status: Acute Assessment and Plan: -----Due to poor oral intake. His potassium was normal today but since he is not eating much I will add potassium to his fluids. (11) Adult failure to thrive: Code(s): R62.7 - Adult failure to thrive Status: Acute Assessment and Plan: -----See above. (12) Down's syndrome: Code(s): Q90.9 - Down syndrome, unspecified
[2019-10-24] MEDS: PRAVASTATIN SODIUM 20 MG TABLET 60 MG PO (08:32)
[2019-10-24] MEDS: POTASSIUM CHLORIDE 20 MEQ TABLET.ER PO (08:32)
[2019-10-24] MEDS: PAROXETINE 20 MG TABLET PO (08:32)
[2019-10-24] MEDS: FAMOTIDINE 20 MG TABLET PO (08:32)
[2019-10-24] MEDS: PANTOPRAZOLE SODIUM IV 40 MG VIAL IV PUSH ×2 (08:32→20:42)
[2019-10-24] MEDS: busPIRone HCL 5 MG TABLET PO ×2 (08:32→20:42)
[2019-10-24] MEDS: ENOXAPARIN 40 MG/0.4 ML SYRINGE SUB-Q (08:32)
[2019-10-24] MEDS: TAMSULOSIN HCL 0.4 MG CAPSULE PO (08:33)
[2019-10-24] MEDS: KCL 20 MEQ/D5/0.9% SOD CHL 1,000 ML 100 ML IV CONT ×2 (08:44→17:51)
[2019-10-24] MEDS: PHYTONADIONE 5 MG TABLET PO (09:17)
[2019-10-24 12:15] LABS: Fibrinogen 443 mg/dl (215-510)
--- NOTE | 2019-10-24 12:47 | PM.PNGS ---
Progress Note: A&P Assessment and Plan (1) Abnormal findings on imaging of biliary tract: Code(s): R93.2 - Abnormal findings on diagnostic imaging of liver and biliary tract Status: Acute Assessment and Plan: Discussed with hospitalist Margo Titus PA-C, although patient does not have right upper quadrant tenderness, he does usually eat pretty well and has not been doing so. He had a very high white count which is improving with antibiotics. He is still tachycardic with heart rates in the 100-110 range. His imaging is very suggestive of acute cholecystitis. There is really no way of knowing how much benefit the patient will get from cholecystectomy but he is not a high risk for surgery. We will go ahead and proceed with laparoscopic cholecystectomy either tomorrow or Friday. Family is comfortable with this approach. (2) Adult failure to thrive: Code(s): R62.7 - Adult failure to thrive Status: Acute Assessment and Plan: Patient usually eats but has not been eating. His mental status apparently is the norm for him. (3) Down's syndrome: Code(s): Q90.9 - Down syndrome, unspecified Status: Chronic (4) Pneumonia: Qualifiers: Pneumonia type: due to unspecified organism Laterality: bilateral Lung location: lower lobe of lung Qualified Code(s): J18.9 - Pneumonia, unspecified organism Code(s): J18.9 - Pneumonia, unspecified organism Status: Ruled-out Assessment and Plan: This was suggested on his admitting CT scan however additional films have not shown evidence of pneumonia and clinically there is not evidence of pneumonia. Discussed with the hospitalist. (5) Prolonged pt (prothrombin time): Code(s): R79.1 - Abnormal coagulation profile Status: Acute Assessment and Plan: Not an obstacle to proceeding with surgery. Subjective Subjective Date/Time Seen: 10/24/19 12:47 Patient reports: other (Patient more awake but not verbalizing) Review of Systems Review of Systems: ROS unobtainable: unobtainable due to mental status (Apparently being sleepy and mostly nonverbal is standard for him) Exam Const: General: no acute distress and awake Nutritional Appearance: well nourished Orientation/consciousness: Other orientation findings (Nonverbal) GI: Inspection: normal to inspection and non-distended GI Palp: Yes Soft to palpation and No Tenderness to palpation present (GI) Auscultation: normal bowel sounds Objective Data Vital Signs Vital Signs: Vital Signs - 24 hr 10/23/19 14:00 10/23/19 18:00 10/23/19 20:00 Temperature 37.1 C 36.8 C Pulse Rate 86 90 Respiratory Rate 14 14 Blood Pressure 92/60 L 92/63 L 82/57 L Pulse Oximetry 91 92 10/23/19 21:19 10/24/19 02:09 10/24/19 05:49 Temperature 36.9 C 37.1 C 37.1 C Pulse Rate 78 76 72 Respiratory Rate 16 18 16 Blood Pressure 82/57 L 90/45 L 88/49 L Pulse Oximetry 95 94 95 10/24/19 08:21 10/24/19 10:50 Temperature Pulse Rate Respiratory Rate Blood Pressure 92/58 L Pulse Oximetry 93 Intake/Output Intake/Output: Intake & Output 10/21/19 10/22/19 10/23/19 10/24/19 23:59 23:59 23:59 23:59 Intake Total 3004 2150 3550 836 Output Total 110 Balance 3004 2150 3550 726 Meds/Results Medications: Active Medications Generic Name Dose Route Start Last Admin Trade Name Freq PRN Reason Stop Dose Admin Acetaminophen 650 mg 10/19/19 17:42 Tylenol Tablet PO Q4H PRN Mild Pain (1-3) or Fever Alprazolam 0.5 mg 10/19/19 22:00 10/24/19 05:20 Xanax PO Not Given Q8HR BRITTNEY Buspirone HCl 5 mg 10/19/19 21:00 10/24/19 08:32 Buspar PO 5 mg Q12HR BRITTNEY Administration Enoxaparin Sodium 40 mg 10/23/19 09:00 10/24/19 08:32 Lovenox SUB-Q 40 mg DAILY BRITTNEY Administration Famotidine 20 mg 10/20/19 09:00 10/24/19 08:32 Pepcid PO 20 mg DAILY BRITTNEY Administration Ceftriaxone Sodium/Dextrose 1 gm in 50 mls @
--- NOTE | 2019-10-24 13:26 | WPDANESEPP ---
Anes - Eval Pre Procedure Procedure: lap cholecystectomy Date/Time: 10/24/19 13:26 Surgeon: Mumtaz Pre Op Diagnosis: Hypernatremia/hypokalemia/dehydration/failure to Patient Data Age: 59 Gender: M Height: 1.52 m Weight: 48.8 kg Last Vital Signs Temp 37.1 C 10/24/19 05:49 Pulse 72 10/24/19 05:49 Resp 16 10/24/19 05:49 BP 92/58 L 10/24/19 08:21 Pulse Ox 93 10/24/19 10:50 Allergies Allergy/AdvReac Type Severity Reaction Status Date / Time erythromycin base Allergy Unknown Verified 10/22/19 10:28 Penicillins Allergy Unknown Verified 10/22/19 10:28 Home Medications Medication Instructions Recorded Confirmed Type alprazolam [Xanax] 0.5 mg PO Q8H 10/19/19 10/19/19 History buspirone 5 mg PO BID 10/19/19 10/19/19 History famotidine [Pepcid] 20 mg PO DAILY 10/19/19 10/19/19 History levothyroxine 100 mcg PO DAILY 10/19/19 10/19/19 History mirtazapine [Remeron] 7.5 mg PO HS 10/19/19 10/19/19 History paroxetine HCl [Paxil] 20 mg PO QAM 10/19/19 10/19/19 History pravastatin 60 mg PO DAILY 10/19/19 10/19/19 History Laboratory Tests 10/23/19 10/24/19 10/24/19 14:33 05:06 05:06 WBC 11.2 K/mm3 H K/mm3 (4.5-10.0) RBC 4.54 M/mm3 L M/mm3 (4.6-6.20) Hgb 12.7 g/dL L g/dL (14.0-18.0) Hct 39.7 % L % (42.0-52.0) MCV 87.4 fl fl (80-100) MCH 28.0 pg pg (26-34) MCHC 32.0 g/dl g/dl (32-36) RDW 20.1 % H % (11.5-14.5) Plt Count 218 k/mm3 k/mm3 (150-375) MPV 11.3 fl H fl (7.4-10.4) PT 17.6 Seconds H Seconds (11.1-14.7) INR 1.5 Thrombin Time Fibrinogen Sodium Potassium Chloride Carbon Dioxide BUN Creatinine Estim Creat Clear Calc Estimated GFR Glucose Lactic Acid 1.0 mmol/L mmol/L (0.7-2.1) Calcium 10/24/19 10/24/19 10/24/19 05:06 10:52 10:52 WBC RBC Hgb Hct MCV MCH MCHC RDW Plt Count MPV PT INR Thrombin Time Pending Fibrinogen 443 mg/dl mg/dl (215-510) Sodium 138 mmol/L mmol/L (137-145) Potassium 3.5 mmol/L mmol/L (3.4-5.0) Chloride 104 mmol/L mmol/L (98-107) Carbon Dioxide 30 mmol/L mmol/L (22-30) BUN 5 mg/dL L mg/dL (9-20) Creatinine 0.50 mg/dL L mg/dL (0.7-1.3) Estim Creat Clear Calc 94 ml/min ml/min Estimated GFR > 60 (59 - ) Glucose 101 mg/dL mg/dL (75-110) Lactic Acid Calcium 8.0 mg/dL L mg/dL (8.4-10.2) Patient hx anesthesia problems: none Family hx anesthesia problems: none PMFSH Past Medical History Medical History Abnormal CT scan, esophagus Anxiety Back pain Dementia Down's syndrome Gout History of gastroesophageal reflux (GERD) History of hypercholesterolemia Hypothyroidism Pneumonia Surgical History Surgical History H/O inguinal hernia repair History of tonsillectomy Family History Family History Unknown Family history unknown Social History Social History Social History: He comes from [facility]. Smoking status: Never smoker Alcohol intake: never Substance use: never Living arrangements: [facility] Occupation/Education: other Gender identity (if verbalized by the patient): Male Spiritual care concerns: No Agree to blood products: Yes Exam Day of Procedure 10/24/19 13:26
[2019-10-24] MEDS: ALPRAZOLAM 0.5 MG TABLET PO (17:09)
[2019-10-24] MEDS: SENNA/DOCUSATE SODIUM TABLET 1 TAB PO (20:42)
[2019-10-24] MEDS: MIRTAZAPINE 7.5 MG TABLET PO (20:42)
[2019-10-25] VITALS (7 sets, daily range): BP systolic 89–122; BP diastolic 53–61; PULSE 72–106; RESP 16–20; TEMP 36.1–36.4; O2SAT 90–100
[2019-10-25] MEDS: metroNIDAZOLE 500 MG/ISO 100ML 500 MG/100 ML BAG 100 MG IVPB ×4 (00:03→18:06)
[2019-10-25] MEDS: MORPHINE SULFATE 2 MG/ML INJ IV PUSH (02:18)
[2019-10-25] MEDS: KCL 20 MEQ/D5/0.9% SOD CHL 1,000 ML 100 ML IV CONT (05:05)
[2019-10-25 05:11] LABS: Hematocrit 37.5 % (42.0-52.0); Hemoglobin 12.2 g/dL (14.0-18.0); Mean Corpuscular HGB Conc 32.5 g/dl (32-36); Mean Corpuscular Hemoglobin 28.2 pg (26-34); Mean Corpuscular Volume 86.6 fl (80-100); Platelet Count Result 251 k/mm3 (150-375); Red Blood Count 4.33 M/mm3 (4.6-6.20); Red Cell Distribution Width 19.5 % (11.5-14.5); White Blood Count 8.3 K/mm3 (4.5-10.0)
[2019-10-25 05:23] LABS: Calcium 7.4 mg/dL (8.4-10.2); Carbon Dioxide 26 mmol/L (22-30); Chloride 109 mmol/L (98-107); Estimated CRCL calculation 114 ml/min; Estimated Glomerular Filt Rate > 60; Glucose 146 mg/dL (75-110); Phosphorus 2.2 mg/dL (2.5-4.5); Potassium 3.2 mmol/L (3.4-5.0); Sodium 141 mmol/L (137-145)
[2019-10-25 05:24] LABS: INR 1.3; Prothrombin Time 15.7 Seconds (11.1-14.7)
[2019-10-25 05:28] LABS: Blood Urea Nitrogen < 2 mg/dL (9-20)
[2019-10-25] MEDS: PANTOPRAZOLE SODIUM IV 40 MG VIAL IV PUSH ×2 (08:01→20:53)
[2019-10-25] MEDS: POTASSIUM PHOS,M-BASIC-D-BASIC 20 MMOL in SODIUM CHLORIDE 0.9% IV 250 ML 64 MMOL IVPB (08:58)
--- NOTE | 2019-10-25 09:31 | PM.IMPN ---
Progress Note: A&P Assessment and Plan (1) Prolonged pt (prothrombin time): Code(s): R79.1 - Abnormal coagulation profile Status: Acute Assessment and Plan: -----Prolonged PTT and PT. Rewiew of old records indicate this is new. No evidence of liver disease on imaging or labs. Factor deficencies (V, X, II) seem less likely because no abnormalities of PTT and PT in the past. ddx- Vit k deficiency due to poor diet--improved with oral vit k today. DIC is less likely as the fibrinogen is normal. He was not on any anticoagulants on admission when PTT and PT was found to be abnormal but was started on lovenox 10/22. Trombin time pending. Hematology consulted. (2) Cholelithiasis: Qualifiers: Biliary obstruction: without biliary obstruction Cholecystitis presence: without cholecystitis Cholelithiasis location: gallbladder Qualified Code(s): K80.20 - Calculus of gallbladder without cholecystitis without obstruction Code(s): K80.20 - Calculus of gallbladder without cholecystitis without obstruction Status: Acute Assessment and Plan: -----patient has not been eating for a week and has evidence of acute cholecystitis on CT, ultrasound, and HIDA scan. He did have some pain on palpation today. General sx note reviewed. I do not think his respiratory issues would prohibit sx since his latest abdominal xray shows the lung bases that look okay and pt is not having further hypoxia or SOB. CT findings may be atelectasis as detailed below. (3) Pneumonia: Qualifiers: Laterality: bilateral Lung location: lower lobe of lung Pneumonia type: due to unspecified organism Qualified Code(s): J18.9 - Pneumonia, unspecified organism Code(s): J18.9 - Pneumonia, unspecified organism Status: Ruled-out Assessment and Plan: -----CT shows possible pneumonia and his white blood cell count elevated 10/20 and again 10/23. Continue Ceftriaxone and flagyl (day 5) which covers acute cholecystitis and possible PNA although lungs may just be showing atelectasis. (4) Proctitis: Code(s): K62.89 - Other specified diseases of anus and rectum Status: Acute Assessment and Plan: -----likely resolved. Due to fecal impaction. Abdominal x-ray shows moderate colonic fecal loading but has been having routine bowel movements since then. Will continue to monitor is output. (5) Esophagitis: Code(s): K20.9 - Esophagitis, unspecified Status: Acute Assessment and Plan: -----noted on CT but ruled out with EGD. Gastritis noted. Continue Protonix. (6) Fecal impaction: Code(s): K56.41 - Fecal impaction Status: Acute Assessment and Plan: -----enema given 10/22 with good return. Will continue a bowel regimen. (7) Acute kidney injury: Code(s): N17.9 - Acute kidney failure, unspecified Status: Acute Assessment and Plan: -----resolved with IV fluids (8) Dehydration: Code(s): E86.0 - Dehydration Status: Acute Assessment and Plan: ------Patient has not been eating or drinking likely due to above. Continue IV fluids (9) Acute hypernatremia: Code(s): E87.0 - Hyperosmolality and hypernatremia Status: Acute Assessment and Plan: -----within normal limits today 141. Continue IV fluids and monitor (10) Acute hypokalemia: Code(s): E87.6 - Hypokalemia Status: Acute Assessment and Plan: -----Due to poor oral intake. IV fluids do have potassium in it and he was given a little extra today as well. Hopfully once he is eating he won't need any supplementation. May consider some at discharge. Phos slightly low again today. Will replace. (11) Adult failure to thrive: Code(s): R62.7 - Adult failure to thrive Status: Acute Assessment and Plan: -----See above. (12) Down's syndrome: Code(s): Q90.9 - Down syndr
--- NOTE | 2019-10-25 11:10 | PM.PNGS ---
Progress Note: A&P Assessment and Plan (1) Abnormal findings on imaging of biliary tract: Code(s): R93.2 - Abnormal findings on diagnostic imaging of liver and biliary tract Status: Acute Assessment and Plan: Patient with decreased oral intake and imaging suggesting acute cholecystitis. Has been improving on IV antibiotics and WBC normal today. Although his exam is limited, he does appear to have some tenderness in the RUQ today. Planning to proceed with laparoscopic cholecystectomy, possible open, by Dr. Pandya tomorrow. Will make the patient NPO after midnight. (2) Adult failure to thrive: Code(s): R62.7 - Adult failure to thrive Status: Acute Assessment and Plan: Has apparently has been having a decrease in oral intake. His history and exam is complicated by his baseline cognitive impairment. (3) Down's syndrome: Code(s): Q90.9 - Down syndrome, unspecified Status: Chronic (4) Pneumonia: Qualifiers: Pneumonia type: due to unspecified organism Laterality: bilateral Lung location: lower lobe of lung Qualified Code(s): J18.9 - Pneumonia, unspecified organism Code(s): J18.9 - Pneumonia, unspecified organism Status: Ruled-out Assessment and Plan: No clinical evidence of pneumonia at this time. Possibly noted atelectasis on initial CT scan. No current hypoxia or shortness of breath. Planning to proceed with surgery tomorrow. (5) Prolonged pt (prothrombin time): Code(s): R79.1 - Abnormal coagulation profile Status: Acute Additional Plan Potassium low on this morning's labs and replaced by Hospitalist. Discussed plan of care with Dr. Pandya today. Subjective Subjective Date/Time Seen: 10/25/19 09:30 Interval history: Patient seen and examined. No family at the bedside. Appears comfortable on my exam but does not answer questions. Review of Systems Review of Systems: ROS unobtainable: unobtainable due to mental condition Exam Const: General: comfortable, no acute distress and awake Orientation/consciousness: Other orientation findings (Nonverbal) GI: Inspection: normal to inspection and non-distended GI Palp: Yes Soft to palpation Auscultation: normal bowel sounds Other: Patient grimaces with palpation of RUQ, exam limited d/t limitations with communication Skin: General skin exam: normal color Psych: Other: Calm. Nonverbal. Objective Data Vital Signs Vital Signs: Vital Signs - 24 hr 10/24/19 14:00 10/24/19 18:00 10/24/19 21:38 Temperature 36.4 C 37.1 C 36.2 C L Pulse Rate 64 90 88 Respiratory Rate 14 18 18 Blood Pressure 94/58 L 91/60 L 96/71 L Pulse Oximetry 94 93 95 10/25/19 01:51 10/25/19 06:00 10/25/19 09:56 Temperature 36.4 C L 36.1 C L 36.3 C L Pulse Rate 72 72 79 Respiratory Rate 20 20 16 Blood Pressure 97/53 L 122/61 97/56 L Pulse Oximetry 96 92 94 Intake/Output Intake/Output: Intake & Output 10/22/19 10/23/19 10/24/19 10/25/19 23:59 23:59 23:59 23:59 Intake Total 2150 3550 2046 1350 Output Total 110 Balance 2150 3550 1936 1350 Meds/Results Medications: Active Medications Generic Name Dose Route Start Last Admin Trade Name Freq PRN Reason Stop Dose Admin Acetaminophen 650 mg 10/19/19 17:42 Tylenol Tablet PO Q4H PRN Mild Pain (1-3) or Fever Alprazolam 0.5 mg 10/24/19 17:00 10/24/19 17:09 Xanax PO 0.5 mg BID BRITTNEY Administration Buspirone HCl 5 mg 10/19/19 21:00 10/24/19 20:42 Buspar PO 5 mg Q12HR BRITTNEY Administration Chlorhexidine Gluconate 1 applic 10/26/19 07:00 Hibiclens TOPICAL 10/26/19 07:01 ONCE ONE Enoxaparin Sodium 40 mg 10/23/19 09:00 10/24/19 08:32 Lovenox SUB-Q 40 mg DAILY BRITTNEY Administration Famotidine 20 mg 10/20/19 09:00 10/24/19 08:32 Pepcid PO 20 mg DAILY BRITTNEY Administration Ceftriaxone Sodium/Dextrose 1 gm in 50 mls @ 100 mls/hr 10/22/19 13:05 10/25/19 08:30 Rocephin 1 Gm/D5w 50 Ml I
[2019-10-25] MEDS: ALPRAZOLAM 0.5 MG TABLET PO ×2 (11:29→16:00)
[2019-10-25] MEDS: ENOXAPARIN 40 MG/0.4 ML SYRINGE SUB-Q (11:29)
[2019-10-25] MEDS: busPIRone HCL 5 MG TABLET PO ×2 (11:29→20:53)
--- NOTE | 2019-10-25 11:51 | PCNFU ---
Nutrition Follow-Up Complete: Altered Nutrition Related Laboratory Values as evidenced by hypernatremia as evidenced by Na 149 Meet estimated energy needs Goal:limited progress towards goal. Pt current nutrition is NPO. Nutrition recommendation: Minced and Moist Level 5/Low Fat Last recorded weight is 48.8 kg. Bowel Motility:+BM 10/25/19 Labs Reviewed: K 3.2, Glu 146,PO4 2.2, Hct 37.5,Hgb 12.2 Meds Noted:Remeron,Flagyl, Protonix,Zanax, Paxil Additional Notes: NPO at this time, with plans to proceed with laparoscopic cholecystectomy. Monitoring: Will monitor every 3 days.
--- NOTE | 2019-10-25 18:09 | CONS_ITS ---
DATE OF CONSULTATION: 10/25/2019 REASON FOR CONSULTATION: Elevated PT and PTT. HISTORY OF PRESENTING ILLNESS: This is a 59-year-old male with history of Down syndrome, mentally challenged, and resident of [facility] at [facility], admitted to the hospital on October 18, with dehydration and hypokalemia along with hypernatremia and failure to thrive. The patient had EGD done due to nausea and vomiting on October 29, that showed hiatal hernia, diffuse gastritis, no ulceration. Hepatobiliary scan was also performed that showed no activity within the gallbladder either before or after morphine administration consistent with acute cholecystitis. Plan was to perform laparoscopic cholecystectomy. Prior to the labs, labs were drawn including coagulation panel that showed elevated INR of 1.6 with PT of 18.6 and PTT of 37.5. Clinically, he has no bleeding complaints. Again, he is a poor historian. There is no evidence of melena and hematochezia. The patient is not taking any blood thinners. There was no history of bleeding disorders. The patient is simply on 40 mg of Lovenox subcu for prophylaxis. REVIEW OF SYSTEMS: A 12-point review of system was reviewed and as per HPI, otherwise negative. PAST MEDICAL HISTORY: Down syndrome, dementia, gout, gastroesophageal reflux disease, hyperlipidemia, hypothyroidism, and back pain. PAST SURGICAL HISTORY: Inguinal hernia repair and tonsillectomy. FAMILY HISTORY: Unknown. SOCIAL HISTORY: The patient has no history of smoking and drinking. He is a resident of [facility] at [facility]. HOME MEDICATIONS: Reviewed. ALLERGIES: REVIEWED. PHYSICAL EXAMINATION: GENERAL: This patient is not alert and quite confused. Looks comfortable. VITAL SIGNS: Per nursing note. HEENT: Normocephalic, atraumatic. Clear oropharynx. LUNGS: Clear to auscultation bilaterally. CARDIOVASCULAR: Regular rate and rhythm. No murmurs. ABDOMEN: Soft, nontender, nondistended. Bowel sounds are positive in all 4 quadrants. No hepatosplenomegaly. EXTREMITIES: No edema. NEURO EXAM: Grossly intact. LABORATORY DATA: INR 1.3 today compared to 1.6, 6 days ago, PTT 37.5, fibrinogen 443. WBC 8.3, hemoglobin 12.2, platelet 251,000, potassium 3.2, creatinine 0.4, calcium 7.4, and total bilirubin 0.3. ASSESSMENT AND PLAN: Elevated PT and PTT. The patient is a 59-year-old male with Down syndrome who was admitted to the hospital with failure to thrive, dehydration, hypernatremia, and hypokalemia. Biliary scan was performed that showed cholecystitis. The patient is having some abdominal discomfort. He is going to have a laparoscopic cholecystectomy done. I have reviewed the labs. INR is normal. I do not see any evidence of bleeding diastasis at this time. I would authorize this patient to proceed with a laparoscopic cholecystectomy. I do not see any need for any further bleeding disorder testing. CARYN COMBS M.D. 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
[2019-10-25] MEDS: MIRTAZAPINE 7.5 MG TABLET PO ×2 (20:53→22:59)
[2019-10-25] MEDS: ACETAMINOPHEN 325 MG TABLET 650 MG PO (20:55)
[2019-10-25] MEDS: SENNA/DOCUSATE SODIUM TABLET 1 TAB PO (22:22)
[2019-10-26] VITALS (7 sets, daily range): BP systolic 90–131; BP diastolic 55–95; PULSE 68–84; RESP 15–20; TEMP 36.4–36.8; O2SAT 91–100
[2019-10-26] MEDS: metroNIDAZOLE 500 MG/ISO 100ML 500 MG/100 ML BAG 100 MG IVPB ×4 (00:07→17:00)
[2019-10-26] MEDS: KCL 20 MEQ/D5/0.9% SOD CHL 1,000 ML 100 ML IV CONT ×2 (00:09→16:57)
[2019-10-26 05:10] LABS: Hematocrit 40.8 % (42.0-52.0); Hemoglobin 13.2 g/dL (14.0-18.0); Mean Corpuscular HGB Conc 32.4 g/dl (32-36); Mean Corpuscular Hemoglobin 27.9 pg (26-34); Mean Corpuscular Volume 86.3 fl (80-100); Mean Platelet Volume 10.8 fl (7.4-10.4); Platelet Count Result 293 k/mm3 (150-375); Red Blood Count 4.73 M/mm3 (4.6-6.20); Red Cell Distribution Width 19.9 % (11.5-14.5); White Blood Count 6.7 K/mm3 (4.5-10.0)
[2019-10-26 05:20] LABS: INR 1.2
[2019-10-26] MEDS: LORAZEPAM INJ 2 MG/ML VIAL 0.5 MG IV PUSH (05:24)
[2019-10-26 05:25] LABS: Alanine Aminotransferase 10 U/L (4-50); Albumin Level 2.8 g/dL (3.5-5.1); Alkaline Phosphatase 136 U/L (38-126); Aspartate Amino Transferase 21 U/L (17-59); Bilirubin,Total 0.2 mg/dL (0.2-1.3); Calcium 8.1 mg/dL (8.4-10.2); Carbon Dioxide 28 mmol/L (22-30); Chloride 108 mmol/L (98-107); Estimated CRCL calculation 94 ml/min; Estimated Glomerular Filt Rate > 60; Glucose 122 mg/dL (75-110); Potassium 3.1 mmol/L (3.4-5.0); Sodium 140 mmol/L (137-145)
[2019-10-26 05:43] LABS: Blood Urea Nitrogen < 2 mg/dL (9-20)
[2019-10-26] MEDS: PANTOPRAZOLE SODIUM IV 40 MG VIAL IV PUSH ×2 (08:01→21:34)
[2019-10-26] MEDS: PAROXETINE 20 MG TABLET PO (09:39)
[2019-10-26] MEDS: busPIRone HCL 5 MG TABLET PO ×2 (09:39→21:33)
[2019-10-26] MEDS: FAMOTIDINE 20 MG TABLET PO (09:39)
[2019-10-26] MEDS: PRAVASTATIN SODIUM 20 MG TABLET 60 MG PO (09:39)
[2019-10-26] MEDS: TAMSULOSIN HCL 0.4 MG CAPSULE PO (09:39)
[2019-10-26] MEDS: ALPRAZOLAM 0.5 MG TABLET PO (09:39)
--- NOTE | 2019-10-26 09:54 | PC.NURSE ---
Patients 0900 PO medications were non administered initially due to patient scheduled for surgery today. However, surgery has been postponed until tomorrow 10/26/2019. PO 0900 medications administered at 0945. Bernie juares
--- NOTE | 2019-10-26 10:19 | PM.PNGS ---
Progress Note: A&P Assessment and Plan (1) Abnormal findings on imaging of biliary tract: Code(s): R93.2 - Abnormal findings on diagnostic imaging of liver and biliary tract Status: Acute Assessment and Plan: no change in condition. Due to plata virus quijano dynamic staffing issues, we will have to postpone patient surgery until tomorrow. I called and discussed with his mother. I explained the situation and his condition as well as the reasons for surgery. (2) Adult failure to thrive: Code(s): R62.7 - Adult failure to thrive Status: Acute Assessment and Plan: Not eating with no good reason why. Seems most likely to be due to chronic cholecystitis. (3) Down's syndrome: Code(s): Q90.9 - Down syndrome, unspecified Status: Chronic Subjective Subjective Date/Time Seen: 10/26/19 10:19 Nonverbal. Does not appear uncomfortable. Still not eating Review of Systems Review of Systems: ROS unobtainable: unobtainable due to mental status Exam GI: GI Palp: Yes Soft to palpation and No Tenderness to palpation present (GI) Auscultation: normal bowel sounds Objective Data Vital Signs Vital Signs: Vital Signs - 24 hr 10/25/19 14:00 10/25/19 17:50 10/25/19 19:38 Temperature 36.4 C 36.4 C L Pulse Rate 81 73 Respiratory Rate 18 16 Blood Pressure 89/59 L 96/58 L Pulse Oximetry 95 100 90 10/25/19 21:17 10/26/19 06:15 Temperature 36.4 C L 36.8 C Pulse Rate 106 H 81 Respiratory Rate 20 16 Blood Pressure 93/55 L 131/95 H Pulse Oximetry Intake/Output Intake/Output: Intake & Output 10/23/19 10/24/19 10/25/19 10/26/19 23:59 23:59 23:59 23:59 Intake Total 3550 6 1806.6667 1250 Output Total 110 Balance 3550 1936 1806.6667 1250 Meds/Results Medications: Active Medications Generic Name Dose Route Start Last Admin Trade Name Freq PRN Reason Stop Dose Admin Acetaminophen 650 mg 10/19/19 17:42 10/25/19 20:55 Tylenol Tablet PO 650 mg Q4H PRN Administration Mild Pain (1-3) or Fever Alprazolam 0.5 mg 10/24/19 17:00 10/26/19 09:39 Xanax PO 0.5 mg BID BRITTNEY Administration Buspirone HCl 5 mg 10/19/19 21:00 10/26/19 09:39 Buspar PO 5 mg Q12HR BRITTNEY Administration Enoxaparin Sodium 40 mg 10/23/19 09:00 10/26/19 07:42 Lovenox SUB-Q Not Given DAILY BRITTNEY Famotidine 20 mg 10/20/19 09:00 10/26/19 09:39 Pepcid PO 20 mg DAILY BRITTNEY Administration Ceftriaxone Sodium/Dextrose 1 gm in 50 mls @ 100 mls/hr 10/22/19 13:05 10/26/19 08:32 Rocephin 1 Gm/D5w 50 Ml IVPB Infused QAM BRITTNEY Infusion Metronidazole 500 mg in 100 mls @ 100 mls/hr 10/22/19 18:00 10/26/19 06:26 Flagyl 500 Mg/Iso Soln 100 Ml IVPB Infused Q6HR BRITTNEY Infusion Potassium Chloride/Dextrose/Sod Cl 1,000 mls @ 100 mls/hr 10/24/19 09:00 10/26/19 08:36 Kcl 20 Meq/D5/0.9% Sod Chl IV CONT 0 mls/hr .Q10H BRITTNEY Infusion Lactated Ringer's 1,000 mls @ 30 mls/hr 10/26/19 06:50 Lr - Lactated Ringers Iv IV CONT .Q24H BRITTNEY Potassium Chloride 500 mls @ 125 mls/hr 10/26/19 08:30 10/26/19 08:33 Kcl 40 Meq/D5w 500 Ml Peripheral IVPB 10/26/19 12:29 125 mls/hr ONCE ONE Administration Levothyroxine Sodium 100 mcg 10/20/19 06:30 10/26/19 07:42 Synthroid PO Not Given 0630 BRITTNEY Lorazepam 0.5 mg 10/26/19 08:02 Ativan Inj IV PUSH Q6H PRN Anxiety Miconazole Nitrate 1 applic 10/22/19 09:00 10/26/19 08:01 Aloe Vansant TOPICAL 1 applic Q12HR BRITTNEY Administration Mirtazapine 7.5 mg 10/19/19 21:00 10/25/19 20:53 Remeron PO 7.5 mg HS BRITTNEY Administration Pantoprazole Sodium 40 mg 10/23/19 09:00 10/26/19 08:01 Protonix Iv IV PUSH 40 mg Q12HR BRITTNEY Administration Paroxetine HCl 20 mg 10/20/19 09:00 10/26/19 09:39 Paxil PO 20 mg QAM BRITTNEY Administration Potassium Chloride 20 meq 10/20/19 17:00 10/26/19 07:55 Kcl Tablet PO Not Given DAILY@0800 BRITTNEY
--- NOTE | 2019-10-26 12:13 | PM.IMPN ---
Progress Note: A&P Assessment and Plan (1) Cholelithiasis: Qualifiers: Biliary obstruction: without biliary obstruction Cholecystitis presence: without cholecystitis Cholelithiasis location: gallbladder Qualified Code(s): K80.20 - Calculus of gallbladder without cholecystitis without obstruction Code(s): K80.20 - Calculus of gallbladder without cholecystitis without obstruction Status: Acute Assessment and Plan: Patient reportedly not eating over the last 1 week. Evidence of cholecystitis on CT, US, and HIDA. Appreciate general surgery recommendations - surgery postponed until tomorrow due to OR scheduling. He remains on IV ceftriazone and metronidazole today (day 5). (2) Pneumonia: Qualifiers: Laterality: bilateral Lung location: lower lobe of lung Pneumonia type: due to unspecified organism Qualified Code(s): J18.9 - Pneumonia, unspecified organism Code(s): J18.9 - Pneumonia, unspecified organism Status: Ruled-out Assessment and Plan: CT shows possible pneumonia vs. atelectasis. Remains on IV ceftriaxone and flagyl today as noted above. (3) Prolonged pt (prothrombin time): Code(s): R79.1 - Abnormal coagulation profile Status: Acute Assessment and Plan: Improved. No evidence of liver disease on labs or imaging. No history of bleeding disorders. He was not on any anticoagulants on arrival when PTT and PT was found to be abnormal but was started on lovenox 10/22. Trombin time pending. Appreciate hematology input. (4) Gastritis: Qualifiers: Chronicity: unspecified Gastritis bleeding: without bleeding Gastritis type: unspecified gastritis Qualified Code(s): K29.70 - Gastritis, unspecified, without bleeding Code(s): K29.70 - Gastritis, unspecified, without bleeding Status: Acute Assessment and Plan: EGD 10/22/[address] Starr demonstrated mild to moderate diffuse gastritis. Continue protonix. (5) Dehydration: Code(s): E86.0 - Dehydration Status: Acute Assessment and Plan: Patient has not been eating or drinking much recently, may be secondary to gallbladder issues and gastritis. Continue IV fluids for now and monitor fluid status. (6) Acute hypernatremia: Code(s): E87.0 - Hyperosmolality and hypernatremia Status: Resolved Assessment and Plan: Resolved, monitor. (7) Acute hypokalemia: Code(s): E87.6 - Hypokalemia Status: Acute Assessment and Plan: May be related to poor oral intake. IV fluids with potassium included and IV potassium given this AM. Continue to monior BMP. (8) Fecal impaction: Code(s): K56.41 - Fecal impaction Status: Resolved Assessment and Plan: Relief with enema 10/22 documented. Continue bowel regimen. (9) Proctitis: Code(s): K62.89 - Other specified diseases of anus and rectum Status: Resolved Assessment and Plan: Likely secondary to above. XR showed moderate colonic fecal loading but now with several regular bowel movements. (10) Adult failure to thrive: Code(s): R62.7 - Adult failure to thrive Status: Acute Assessment and Plan: See above. (11) Down's syndrome: Code(s): Q90.9 - Down syndrome, unspecified Status: Chronic Assessment and Plan: Continue home Remeron, Xanax and Paxil. Calm and cooperative mostly today. Subjective Date/time seen: 10/26/19 1100 Interval history: Mr. Jackson is a 59yo male admitted with dehydration and cholelithiasis. Resting comfortably but does not answer questions today. Review of
[2019-10-26 17:40] LABS: Glucose Point of Care 127 (65-105)
[2019-10-26 20:50] LABS: Thrombin Time 18 sec (13-19)
[2019-10-26] MEDS: SENNA/DOCUSATE SODIUM TABLET 1 TAB PO (21:33)
[2019-10-26] MEDS: MIRTAZAPINE 7.5 MG TABLET PO (21:34)
[2019-10-27] VITALS (20 sets, daily range): BP systolic 51–152; BP diastolic 25–117; PULSE 60–106; RESP 12–30; TEMP 36.1–37.1; O2SAT 89–100
[2019-10-27] MEDS: metroNIDAZOLE 500 MG/ISO 100ML 500 MG/100 ML BAG 100 MG IVPB ×5 (00:41→23:30)
[2019-10-27 05:31] LABS: Basophils Absolute Auto 0.1 K/mm3 (0.0-0.1); Basophils Percent Auto 0.8 % (0.2-1.2); Eosinophils Percent Auto 0.5 % (0-4.4); Hematocrit 37.4 % (42.0-52.0); Hemoglobin 12.1 g/dL (14.0-18.0); Immature Granulocyte Absolute 0.27 K/mm3 (0.00-0.031); Immature Granulocyte Percent A 3.1 % (0-0.5); Lymphocytes Absolute Auto 1.05 K/mm3 (0.9-3.2); Lymphocytes Percent Auto 12.2 % (18.3-44.2); Mean Corpuscular HGB Conc 32.4 g/dl (32-36); Mean Corpuscular Hemoglobin 27.7 pg (26-34); Mean Corpuscular Volume 85.6 fl (80-100); Mean Platelet Volume 10.7 fl (7.4-10.4); Monocytes Absolute Auto 0.9 K/mm3 (0.1-0.6); Monocytes Percent Auto 10.3 % (2.6-8.5); Neutrophils Absolute Auto 6.3 K/mm3 (1.3-6.7); Neutrophils Percent Auto 73.1 % (45.5-73.1); Platelet Count Result 311 k/mm3 (150-375); Red Blood Count 4.37 M/mm3 (4.6-6.20); Red Cell Distribution Width 19.8 % (11.5-14.5); White Blood Count 8.6 K/mm3 (4.5-10.0)
[2019-10-27 05:50] LABS: Calcium 7.8 mg/dL (8.4-10.2); Carbon Dioxide 29 mmol/L (22-30); Chloride 106 mmol/L (98-107); Estimated CRCL calculation 94 ml/min; Estimated Glomerular Filt Rate > 60; Glucose 138 mg/dL (75-110); Magnesium 1.6 mg/dL (1.6-2.3); Phosphorus 2.2 mg/dL (2.5-4.5); Sodium 140 mmol/L (137-145)
[2019-10-27 06:19] LABS: Blood Urea Nitrogen < 2 mg/dL (9-20)
[2019-10-27] MEDS: KCL 20 MEQ/D5/0.9% SOD CHL 1,000 ML 100 ML IV CONT (06:28)
[2019-10-27] MEDS: MAGNESIUM SULF 2 GM/WATER 50ML 2 GM/50 ML BAG IVPB ×2 (07:39→15:44)
[2019-10-27] MEDS: CHLORHEXIDINE GLUCONATE 4% SOL 120 ML BTL 1 APPLIC TOPICAL (07:47)
[2019-10-27] MEDS: PANTOPRAZOLE SODIUM IV 40 MG VIAL IV PUSH ×2 (07:51→19:55)
--- NOTE | 2019-10-27 07:59 | PC.NURSE ---
Per anesthesia, received orders to hold mag and K ying until patient returns from OR.
--- NOTE | 2019-10-27 08:00 | PC.NURSE ---
To OR per bed. IV saline locked. Report given to SHABBIR Stanton. Patient's mother, Tala, called and notified of patient going down for surgery. Will update her when he returns to floor.
[2019-10-27] MEDS: LACTATED RINGERS 1,000 ML 30 ML IV CONT ×2 (08:55→10:43)
--- NOTE | 2019-10-27 09:04 | WPDANESEPPF ---
Anes - Initial Pre Proc Eval Procedure: Operation Date: 10/22/19 12:00 Proposed Procedures p Esophagogastroduodenoscopy - Julio Currie MD Operation Date: 10/27/19 09:00 Proposed Procedures p Laparoscopic Cholecystectomy - Magnus Pandya MD Date/Time: 10/27/19 09:04 Surgeon: Bernie Sharif, PAC Pre Op Diagnosis: Hypernatremia/hypokalemia/dehydration/failure to Patient Data Age: 59 Gender: M Height: 5 ft Weight: 48.8 kg Last Vital Signs Temp 36.8 C 10/27/19 08:10 Pulse 85 10/27/19 08:10 Resp 12 10/27/19 08:10 BP 93/67 L 10/27/19 08:10 Pulse Ox 93 10/27/19 08:10 Allergies Allergy/AdvReac Type Severity Reaction Status Date / Time erythromycin base Allergy Unknown Verified 10/22/19 10:28 Penicillins Allergy Unknown Verified 10/22/19 10:28 Home Medications Medication Instructions Recorded Confirmed Type alprazolam [Xanax] 0.5 mg PO Q8H 10/19/19 10/19/19 History buspirone 5 mg PO BID 10/19/19 10/19/19 History famotidine [Pepcid] 20 mg PO DAILY 10/19/19 10/19/19 History levothyroxine 100 mcg PO DAILY 10/19/19 10/19/19 History mirtazapine [Remeron] 7.5 mg PO HS 10/19/19 10/19/19 History paroxetine HCl [Paxil] 20 mg PO QAM 10/19/19 10/19/19 History pravastatin 60 mg PO DAILY 10/19/19 10/19/19 History Laboratory Tests 10/24/19 10/26/19 10/27/19 10:52 17:38 04:59 WBC 8.6 K/mm3 K/mm3 (4.5-10.0) RBC 4.37 M/mm3 L M/mm3 (4.6-6.20) Hgb 12.1 g/dL L g/dL (14.0-18.0) Hct 37.4 % L % (42.0-52.0) MCV 85.6 fl fl (80-100) MCH 27.7 pg pg (26-34) MCHC 32.4 g/dl g/dl (32-36) RDW 19.8 % H % (11.5-14.5) Plt Count 311 k/mm3 k/mm3 (150-375) MPV 10.7 fl H fl (7.4-10.4) Immature Gran % (Auto) 3.1 % H % (0-0.5) Neut % (Auto) 73.1 % % (45.5-73.1) Lymph % (Auto) 12.2 % L % (18.3-44.2) Graves % (Auto) 10.3 % H % (2.6-8.5) Eos % (Auto) 0.5 % % (0-4.4) Baso % (Auto) 0.8 % % (0.2-1.2) Lymph # (Auto) 1.05 K/mm3 K/mm3 (0.9-3.2) Graves # (Auto) 0.9 K/mm3 H K/mm3 (0.1-0.6) Eos # (Auto) 0.0 K/mm3 K/mm3 (0-0.3) Baso # (Auto) 0.1 K/mm3 K/mm3 (0.0-0.1) Abs Immat Gran (auto) 0.27 K/mm3 H K/mm3 (0.00-0.031) Absolute Neuts (auto) 6.3 K/mm3 K/mm3 (1.3-6.7) Absolute Nucleated RBC 0.0 K/mm3 K/mm3 (0.0-0.012) Nucleated RBC % 0.0 % % (0.0-0.2) Thrombin Time 18 sec sec (13-19) Sodium Potassium Chloride Carbon Dioxide BUN Creatinine Estim Creat Clear Calc Estimated GFR Glucose POC Capillary Glucose 127 mg/dl H mg/dl (65-105) Calcium Phosphorus Magnesium 10/27/19 04:59 WBC RBC Hgb Hct MCV MCH MCHC RDW Plt Count MPV Immature Gran % (Auto) Neut % (Auto) Lymph % (Auto) Graves % (Auto) Eos % (Auto) Baso % (Auto) Lymph # (Auto) Graves # (Auto) Eos # (Auto) Baso # (Auto) Abs Immat Gran (auto) Absolute Neuts (auto) Absolute Nucleated RBC Nucleated RBC % Thrombin Time Sodium 140 mmol/L mmol/L (137-145) Potassium 3.0 mmol/L L mmol/L (3.4-5.0) Chloride 106 mmol/L mmol/L (98-107) Carbon Dioxide 29 mmol/L mmol/L (22-30) BUN < 2 mg/dL L mg/dL (9-20) Creatinine 0.50 mg/dL L mg/dL (0.7-1.3) Estim Creat Clear Calc 94 ml/min ml/min Estimated GFR > 60 (59 - ) Glucose 138 mg/dL H mg/dL (75-110) POC Capillary Glucose Calcium 7.8 mg/dL L mg/dL (8.4-10.2) Phosphorus 2.2 mg/dL L mg/dL (2.5-4.5) Magnesium 1.6 mg/dL mg/dL (1.6-2.3) Patient hx a
[2019-10-27] MEDS: BUPIVACAINE/EPINEPHRINE 0.5% 10 ML VIAL 20 ML INFILTRATE (09:47)
--- NOTE | 2019-10-27 11:04 | PM.PROC ---
Procedure Note - Detailed Date of procedure: 10/27/19 Pre-op diagnosis: Abnormal biliary imaging Abnormal biliary imaging Post-op diagnosis: other (Chronic cholecystitis, cholelithiasis) Procedure performed: Laparoscopic cholecystectomy Description of procedure: The patient was taken to surgery and induced into general anesthesia. The abdomen was prepped and draped. Trocars were placed in the usual fashion using 0.5% Marcaine with epinephrine and applied Medical optical trocars. A 5 mm camera was used. Trocars were in position and the abdomen was insufflated. We decompressed the gallbladder with a laparoscopic aspirator. The gallbladder wall was quite thickened and there were numerous adhesions to the gallbladder. These were gently taken down. Both the liver and the adhesions tended to bleed with literally any manipulation despite how gentle it was performed. Eventually the gallbladder was exposed, being freed from these adhesions. Gallbladder was retracted anterosuperiorly. Traction was placed on the infundibulum and dissection was carried out in the cholecystohepatic triangle. There were dense adhesions in this area as well. Like the other adhesions, these tended to bleed with any dissection. Suction as well as gentle dissection with minimal cautery was used. Eventually the cystic duct and cystic artery were able to be dissected. The gallbladder was dissected off the liver at its lower 3rd. Critical view was achieved. I securely clipped and divided the cystic artery. I then spent more time dissecting out the cystic duct to an adequate length. The cystic duct was then securely clipped and divided. On starting to dissect the gallbladder off the liver, some of the liver surface pulled off with the gallbladder. This did cause some additional bleeding which required cautery. Also the gallbladder wall was easily punctured just with gentle retraction. We did have to suction gallbladder contents from the gallbladder several different times as well as cleaning up the subhepatic space from blood and bile. No stones were noted to spill from the gallbladder. Once we were out of the dissection plane that was close to the triangle of Calot, I was able to enter a plane that was more avascular and did not involve disrupting liver surface or cause additional holes in the gallbladder. Continuing with this I was able to completely dissect the gallbladder off the liver. Gallbladder was placed in an Endo-Catch bag and retrieved through the epigastric trocar site. The epigastric trocar site had to be dilated to accommodate the gallbladder. Once the gallbladder was removed, I replaced the epigastric trocar and we reviewed the right upper quadrant and gallbladder fossa. Repeated irrigation and suctioning were carried out. A Ray-Nathalie sponge was placed over the raw surface of the liver and pressure was held there while elevating the right lobe of the liver to expose the subhepatic space. Continued irrigation and suctioning were carried out until the area was clean. We then removed the Ray-Nathalie sponge. The liver was no longer oozing blood. I placed a 19 Maltese Maximiliano drain through the right lower trocar site. The trocar was removed and the drain was sutured to the skin with 2 0 silk. The end of the drain was placed in the subhepatic space. I recheck the gallbladder fossa again. All looked good. We evacuated CO2 and removed the trocar sleeves. The fascia at the epigastric trocar site was closed with [id number] mattress sutures of 0 Vicryl. The subcutaneous was closed with 3 0 Vicryl suture. The skin was closed with subcuticular interrupted 3 0 Vicryl suture. The drain was placed to bulb suction. The other trocar sites were closed with subcuticular 4 O Monocryl skin suture. They were dressed with Exofin surgical adhesive. The patient was awakened and taken to recovery in good condition. Sponge and needle counts were correct x2. No complications were noted. Anesthe
--- NOTE | 2019-10-27 11:14 | SUR.PHASEI ---
1863 Dr Christensen notified for patients blood pressure
[2019-10-27] MEDS: MIDAZOLAM HCL 2 MG/2 ML VIAL IV PUSH ×2 (11:20→11:32)
--- NOTE | 2019-10-27 11:44 | P.PCNANE_ITS ---
Anes - Cent Venous Cath Note Consent: I have discussed with the patient/family/POA, the non-emergent placement of a central venous catheter, including its clinical necessity/indication and associated potential risks and complications. The patient/family/POA understand(s) and acknowledge(s) the need to proceed with central venous catheter insertion as an important element of the patient's clinical management given emergent patient conditions, temporal constraints may have precluded informed consent. Time-Out: A pre-procedural Time-Out was completed immediately before starting the procedure and confirmed: Patient Identification, Site, Procedure, Patient Position and the Availability of Requisite Equipment. Procedure Note Patient position: supine Central venous catheter insertion site: right internal jugular CVC method of insertion: surface landmarks Hand hygiene/Aseptic technique: Hand hygiene procedures were performed. Aseptic technique was maintained throughout the procedure. Sterile barrier precautions: Maximal sterile barrier precautions, including use of a cap, mask, sterile gown, sterile gloves and a sterile full body drape. Site prep: chlorhexidine Cook Islander: 7 Lumen: 3 Length (cm): 20 cm Closure/Dressing: suture, biopatch and tegaderm Complications: None immediately noted/suspected. Chest X Ray: Ordered/review to follow. Procedure comments: easily accessed no comp Done by DFW in Recovery Room 1128 to 1140
--- NOTE | 2019-10-27 11:50 | SUR.PHASEI ---
1145- Central line placed
--- NOTE | 2019-10-27 11:51 | SUR.PHASEI ---
1150 chest xray taken for central line
--- NOTE | 2019-10-27 12:37 | PC.NURSE ---
Patient to ICU from OR. Report given to SHABBIR Elliott in ICU.
[2019-10-27] MEDS: NOREPINEPHRINE 8 MG/D5W 250 ML 8 MG/250 ML BAG 0.9 MG IV CONT (13:05)
--- NOTE | 2019-10-27 13:18 | WPDCNINT ---
Assessment and Plan Assessment and plan (1) Shock: Code(s): R57.9 - Shock, unspecified Status: Acute Assessment and Plan: - Hypotension post cholecystectomy - Unclear etiology ?? hypovolemia worsened with sedation and anaesthesia - recieved 2 litres fluid bolus , will continue low dose pressors and IVF to maintain SBP >90 and MAP >65 - will monitor UO - On IV abx - afebrile - will check lactic acid levels - No signs of tension pneumothorax to explain hypotension - will check cortisol level (2) Cholecystitis: Code(s): K81.9 - Cholecystitis, unspecified Status: Acute Assessment and Plan: acute vs chronic HIDA scan showing acute cholecystitis but post op diagnosis is chronic cholecystitis with choledocolithiasis s/p lap chapo , RUQ BRIANNA drain in place On Iv abx will continue supportive care NPO for now (3) Pneumonia: Qualifiers: Pneumonia type: due to unspecified organism Laterality: bilateral Lung location: lower lobe of lung Qualified Code(s): J18.9 - Pneumonia, unspecified organism Code(s): J18.9 - Pneumonia, unspecified organism Status: Ruled-out Assessment and Plan: Appears to be more atelectasis than pneumonia on 2liters with stable oxygenation (4) Adult failure to thrive: Code(s): R62.7 - Adult failure to thrive Status: Acute Assessment and Plan: - patient noted to have poor po intake by [facility] staff leading to admission and w/u - last albumin is 2.8 (5) Hypothyroidism: Code(s): E03.9 - Hypothyroidism, unspecified Status: Chronic Assessment and Plan: - will change po synthyriod to IV for now (6) Down's syndrome: Code(s): Q90.9 - Down syndrome, unspecified Status: Chronic Assessment and Plan: hold xanax continue buspar , paxil and remeron when able to take po (7) Subcutaneous emphysema: Code(s): T79.7XXA - Traumatic subcutaneous emphysema, initial encounter Status: Acute Assessment and Plan: - no pneumothorax noted on cxr - unclear etiology for subcutaneous empysema - will repeat cxr in am - currently on 2 lit/miin oxygen with stable sats (8) DVT prophylaxis: Code(s): Z29.9 - Encounter for prophylactic measures, unspecified Status: Acute Assessment and Plan: lovenox Additional Plan total CCT- 45 min managing shock Fund Raiser Consult Note Consult date: 10/27/19 Time Seen: 15:03 HPI: Lino Jackson is a 59 year old male with PMhx significant for Downs syndrome who was sent from OR today due to persistant hypotension . Patient had undergone lap cholecystectomy for cholecysitits and choledocolithiasis. In recovery however he was noted to be hypotensive with BP in 50`s and 60`s systolic . He was given 2 litres of IVF bolus without improvement . RIJ central line was placed and patient was started on levophed and Tx to ICU for further care. Patient has been admitted to hospital since 10/18 due to poor po intake and abdominal pain. His w/u which included Ct abd/pelvis on admission had shown stercoral colitis , constipation , b/l lower lobe atelectasis/ infiltrate, enterocolitis and equivocal signs of acute cholecystitis . He then underwent RUQ US and HIDA scan. HIDA scan showed acute cholecystitis . Patient was taken to OR today and underwent lap cholecystectomy. On arrival to ICU patient is noted to have initially very high BP and levophed was paused but then he started having low BP again . He was restarted on levophed . Patient was also noted to have subcutaneous air both on physical exam and cxr . No pneumothorax has been reported on cxr. No subcutaenous air was present on any previous cxr . Patient is currently on 2 lit/min NC oxygen . Review of Systems Review of Systems: ROS unobtainable: unobtainable due to mental status PMFSH Past Medical History Medical History (Reviewed 10/27/19 @ 09:04 by Juan R Morgan
--- NOTE | 2019-10-27 13:52 | PM.IMPN ---
Progress Note: A&P Assessment and Plan (1) Cholelithiasis: Qualifiers: Cholelithiasis location: gallbladder Cholecystitis presence: without cholecystitis Biliary obstruction: without biliary obstruction Qualified Code(s): K80.20 - Calculus of gallbladder without cholecystitis without obstruction Code(s): K80.20 - Calculus of gallbladder without cholecystitis without obstruction Status: Acute Assessment and Plan: POD#[address] Pandya this morning. Hypotensive in OR and PACU and transferred to ICU. Evidence of cholecystitis on CT, US, and HIDA. He remains on IV ceftriazone and metronidazole today (day 6). (2) Pneumonia: Qualifiers: Pneumonia type: due to unspecified organism Laterality: bilateral Lung location: lower lobe of lung Qualified Code(s): J18.9 - Pneumonia, unspecified organism Code(s): J18.9 - Pneumonia, unspecified organism Status: Ruled-out Assessment and Plan: CT showed possible pneumonia vs. atelectasis. Remains on IV ceftriaxone and flagyl today as noted above. (3) Prolonged pt (prothrombin time): Code(s): R79.1 - Abnormal coagulation profile Status: Acute Assessment and Plan: Improved. No evidence of liver disease on labs or imaging. No history of bleeding disorders. He was not on any anticoagulants on arrival when PTT and PT was found to be abnormal but was started on lovenox 10/22. Thrombin time pending. Appreciate hematology input. (4) Gastritis: Qualifiers: Gastritis type: unspecified gastritis Chronicity: unspecified Gastritis bleeding: without bleeding Qualified Code(s): K29.70 - Gastritis, unspecified, without bleeding Code(s): K29.70 - Gastritis, unspecified, without bleeding Status: Acute Assessment and Plan: EGD 10/22/[address] Starr demonstrated mild to moderate diffuse gastritis. Continue protonix. (5) Dehydration: Code(s): E86.0 - Dehydration Status: Acute Assessment and Plan: Patient has not been eating or drinking much recently, may be secondary to gallbladder issues and gastritis. IV fluids the last few days, hypotensive in OR and received more fluids but now with pulmonary edema. (6) Acute hypernatremia: Code(s): E87.0 - Hyperosmolality and hypernatremia Status: Resolved Assessment and Plan: Resolved, monitor. (7) Acute hypokalemia: Code(s): E87.6 - Hypokalemia Status: Acute Assessment and Plan: K 3.0 and replaced IV. Monitor BMP. (8) Fecal impaction: Code(s): K56.41 - Fecal impaction Status: Resolved Assessment and Plan: Relief with enema 10/22 documented. Continue bowel regimen. (9) Proctitis: Code(s): K62.89 - Other specified diseases of anus and rectum Status: Resolved Assessment and Plan: Likely secondary to above. XR showed moderate colonic fecal loading but now with several regular bowel movements. (10) Adult failure to thrive: Code(s): R62.7 - Adult failure to thrive Status: Acute Assessment and Plan: See above. (11) Down's syndrome: Code(s): Q90.9 - Down syndrome, unspecified Status: Chronic Assessment and Plan: Maintained on home Remeron, Xanax and Paxil. Xanax held yesterday evening due to drowsiness. Subjective Date/time seen: 10/27/19 13:30 Interval history: Mr. Jackson is a 59yo male seen in follow up this afternoon, transferred to ICU postoperatively due to persistent hypotension. Patient appears to be resting comfortably at time of exam. Not able to answer any questions.
[2019-10-27 14:01] LABS: Alveolar/Arterial O2 Gradient 162.2 mmHg; Base Excess ABG 0.6 mEq/l (+/-2.0); Carboxyhemoglobin 0.2 % THb (0-2.0); Fractional Inspired Oxygen 36 %; HCO3 ABG 26.3 mEq/l (22.0-26.0); Methemoglobin ABG 0.5 %THb (0-1.5); Oxygen Content ABG 10.4 %vol (16.0-22.0); Oxyhemoglobin 71.7 % THb (90.0-100.0); PO2 FiO2 Ratio Arterial Blood 1.11 %; Reduced Hemoglobin 27.6 %THb (0-5.0); Total Hemoglobin 10.3 g/dL (12.0-18.0); pH ABG 7.365 (7.350-7.450)
[2019-10-27 14:03] LABS: Device NASAL CANNULA; Oxygen Saturation ABG 72.8 % (95.0-100.0)
[2019-10-27 14:40] LABS: Hematocrit 29.4 % (42.0-52.0); Hemoglobin 9.5 g/dL (14.0-18.0); Mean Corpuscular HGB Conc 32.3 g/dl (32-36); Mean Corpuscular Volume 86.7 fl (80-100); Mean Platelet Volume 9.9 fl (7.4-10.4); Platelet Count Result 239 k/mm3 (150-375); Red Blood Count 3.39 M/mm3 (4.6-6.20); Red Cell Distribution Width 19.9 % (11.5-14.5); White Blood Count 10.4 K/mm3 (4.5-10.0)
[2019-10-27 14:51] LABS: Lactic Acid 2.8 mmol/L (0.7-2.1)
[2019-10-27 14:52] LABS: Calcium 7.1 mg/dL (8.4-10.2); Carbon Dioxide 27 mmol/L (22-30); Chloride 109 mmol/L (98-107); Estimated CRCL calculation 80 ml/min; Estimated Glomerular Filt Rate > 60; Glucose 136 mg/dL (75-110); Magnesium 1.5 mg/dL (1.6-2.3); Phosphorus 3.3 mg/dL (2.5-4.5); Potassium 3.1 mmol/L (3.4-5.0); Sodium 140 mmol/L (137-145)
[2019-10-27 15:01] LABS: NT Pro B Type Natriuretic Pept 128 PG/ML (5-100)
[2019-10-27 15:11] LABS: Blood Urea Nitrogen < 2 mg/dL (9-20)
[2019-10-27] MEDS: LACTATED RINGERS 1,000 ML 100 ML IV CONT (15:12)
[2019-10-27] MEDS: ALBUMIN HUMAN 25% 25 GM/100 ML 100 ML IVPB (16:17)
[2019-10-27 18:07] LABS: Glucose Point of Care 167 (65-105)
[2019-10-27 23:26] LABS: Glucose Point of Care 153 (65-105)
[2019-10-28] VITALS (17 sets, daily range): BP systolic 81–115; BP diastolic 53–79; PULSE 71–119; RESP 16–26; TEMP 36.5–37.3; O2SAT 91–100
[2019-10-28] MEDS: LACTATED RINGERS 1,000 ML 100 ML IV CONT ×3 (01:05→20:50)
[2019-10-28] MEDS: metroNIDAZOLE 500 MG/ISO 100ML 500 MG/100 ML BAG 100 MG IVPB ×4 (05:48→23:52)
[2019-10-28 05:49] LABS: Alanine Aminotransferase 28 U/L (4-50); Albumin Level 2.3 g/dL (3.5-5.1); Alkaline Phosphatase 91 U/L (38-126); Aspartate Amino Transferase 95 U/L (17-59); Bilirubin,Total < 0.1 mg/dL (0.2-1.3); Calcium 8.1 mg/dL (8.4-10.2); Carbon Dioxide 33 mmol/L (22-30); Chloride 110 mmol/L (98-107); Estimated CRCL calculation 94 ml/min; Estimated Glomerular Filt Rate > 60; Glucose 116 mg/dL (75-110); Potassium 3.7 mmol/L (3.4-5.0); Sodium 142 mmol/L (137-145)
[2019-10-28 05:56] LABS: Blood Urea Nitrogen < 2 mg/dL (9-20)
[2019-10-28 05:57] LABS: Hematocrit 30.5 % (42.0-52.0); Hemoglobin 9.9 g/dL (14.0-18.0); Mean Corpuscular HGB Conc 32.5 g/dl (32-36); Mean Corpuscular Hemoglobin 28.2 pg (26-34); Mean Corpuscular Volume 86.9 fl (80-100); Mean Platelet Volume 10.7 fl (7.4-10.4); Platelet Count Result 298 k/mm3 (150-375); Red Blood Count 3.51 M/mm3 (4.6-6.20); Red Cell Distribution Width 19.9 % (11.5-14.5); White Blood Count 18.8 K/mm3 (4.5-10.0)
[2019-10-28] MEDS: LEVOTHYROXINE SODIUM INJ 100 MCG/5 ML VIAL 50 MCG IV PUSH (06:29)
[2019-10-28] MEDS: PANTOPRAZOLE SODIUM IV 40 MG VIAL IV PUSH ×2 (08:44→20:54)
[2019-10-28] MEDS: ENOXAPARIN 40 MG/0.4 ML SYRINGE SUB-Q (08:44)
--- NOTE | 2019-10-28 11:43 | PCDIET ---
ICU Rounding Note: Pt current nutrition is full liquid and ensure compact BID. Nutrition recommendation: Advance diet as medically appropriate. Last recorded weight is 48.8 kg. Bowel Motility: BM X 1 today Labs Reviewed: Chloride 110, Cr .5, BIN <2, Glu 116, Mg 1.5 Meds Noted: Remeron, KCl, protonix, Senna Additional Notes: Pt with very poor intake. Pt is mentally challenged and is used to only eating for his mother. Pt had pneumonia and then was placed in SNF and had decreased intake at those times as well. Pt's mother is of advanced age and d/t current no visitor restrictions to practice social distancing she is unable to visit/feed pt at all. An exception may be being made as related to direct pt care if unable to to get pt to eat. REWRITER to evaluate today. Will continue to monitor closely. Following daily in ICU rounds.
[2019-10-28] MEDS: POTASSIUM CHLORIDE 20 MEQ TABLET.ER PO (12:26)
[2019-10-28] MEDS: PAROXETINE 20 MG TABLET PO (12:26)
[2019-10-28] MEDS: PRAVASTATIN SODIUM 20 MG TABLET 60 MG PO (12:26)
[2019-10-28] MEDS: busPIRone HCL 5 MG TABLET PO ×2 (12:26→20:53)
[2019-10-28] MEDS: TAMSULOSIN HCL 0.4 MG CAPSULE PO (12:27)
--- NOTE | 2019-10-28 13:12 | PM.PNGS ---
Progress Note: A&P Assessment and Plan (1) Shock: Code(s): R57.9 - Shock, unspecified Status: Acute Assessment and Plan: Still on Levophed postop. It is being weaned down. Hopefully with additional fluids he will be off the Levophed by later today. (2) Chronic cholecystitis due to gallbladder calculus with obstruction: Code(s): K80.11 - Calculus of gallbladder with chronic cholecystitis with obstruction Status: Chronic Assessment and Plan: Severe chronic cholecystitis. Patient doing okay after difficult laparoscopic cholecystectomy yesterday. He has had intraoperative and postoperative hypotension but fortunately looks more awake alert and better mental status than he has at any time this admission. I suspect chronic gallbladder disease has been bothering him for quite some time and hopefully he will have an excellent response to cholecystectomy. No evidence of complications from his surgery. Advance diet slowly. (3) Adult failure to thrive: Code(s): R62.7 - Adult failure to thrive Status: Acute Assessment and Plan: See above. (4) Down's syndrome: Code(s): Q90.9 - Down syndrome, unspecified Status: Chronic Subjective Subjective Date/Time Seen: 10/28/19 13:12 More alert than I have seen him at any point this hospitalization. Asked if he was hungry and he said yeah. Otherwise no significant history. Review of Systems Review of Systems: ROS unobtainable: Yes unobtainable due to medical condition ( See above.) Exam GI: Inspection: non-distended and incision ( Incisions healing well. Serosanguineous fluid per BRIANNA drain.) GI Palp: Yes Soft to palpation, Yes Tenderness to palpation present (GI), No Guarding due to palpation present (GI) and No Rebound tenderness present Auscultation: Hypoactive bowel sounds present Objective Data Vital Signs Vital Signs: Vital Signs - 24 hr 10/27/19 13:30 10/27/19 14:00 10/27/19 16:00 Temperature Pulse Rate 77 80 68 Respiratory Rate 26 H Blood Pressure 70/45 L Pulse Oximetry 91 10/27/19 16:01 10/27/19 18:00 10/27/19 20:00 Temperature 36.7 C 36.3 C L Pulse Rate 90 100 106 H Respiratory Rate 20 18 28 H Blood Pressure 76/43 L 113/72 116/78 Pulse Oximetry 89 L 90 93 10/27/19 20:56 10/27/19 21:42 10/28/19 00:00 Temperature 36.5 C Pulse Rate 98 78 Respiratory Rate 30 H 19 Blood Pressure 118/70 99/69 L Pulse Oximetry 95 92 97 10/28/19 01:31 10/28/19 03:55 10/28/19 04:00 Temperature 36.8 C Pulse Rate 119 H 71 103 H Respiratory Rate 21 H 17 Blood Pressure 99/75 L 101/79 Pulse Oximetry 92 100 10/28/19 05:43 10/28/19 06:15 10/28/19 08:00 Temperature 37.2 C 36.5 C Pulse Rate 96 84 Respiratory Rate 16 17 Blood Pressure 110/66 103/61 Pulse Oximetry 95 92 94 10/28/19 10:00 10/28/19 10:20 10/28/19 11:14 Temperature Pulse Rate 84 Respiratory Rate 19 Blood Pressure 96/60 L Pulse Oximetry 100 100 97 10/28/19 11:39 10/28/19 12:00 Temperature 37.3 C Pulse Rate 117 H Respiratory Rate 26 H Blood Pressure 115/71 Pulse Oximetry 94 92 Intake/Output Intake/Output: Intake & Output 10/25/19 10/26/19 10/27/19 10/28/19 23:59 23:59 23:59 23:59 Intake Total 2306.6667 3050 3050 2265 Output Total 600 170 70 Balance 2306.6667 2450 2880 2195 Meds/Results Medications: Active Medications Generic Name Dose Route Start Last Admin Trade Name Freq PRN Reason Stop Dose Admin Acetaminophen 650 mg 10/19/19 17:42 10/25/19 20:55 Tylenol Tablet PO 650 mg Q4H PRN Administration Mild Pain (1-3) or Fever Hydrocodone Bitart/Acetaminophen 1 tab 10/27/19 12:59 [place] 5-325 Mg PO Q4H PRN Pain Rated 7-10 Alprazolam 0.5 mg 10/24/19 17:00 10/26/19 16:59 Xanax PO Not Given BID BRITTNEY Buspirone HCl 5 mg 10/19/19 21:00 10/28/19 12:26 Buspar PO 5 mg Q12HR BRITTNEY Administration Enoxaparin Sodium 40 mg 10/27
--- NOTE | 2019-10-28 13:25 | WPDINTPN ---
Progress Note: A&P Assessment and Plan (1) Shock: Code(s): R57.9 - Shock, unspecified Status: Acute Assessment and Plan: - Hypotension post cholecystectomy - Unclear etiology ?? hypovolemia worsened with sedation and anaesthesia , possible hypovolemia - r patient was fluid resuscitated and started on Levophed to maintain MAP > 60-65 mmHg - patient incontinent of urine, according the bedside RN he is making a lot of Urine. will try and place condom catheter - On IV ceftriaxone and Flagyl - afebrile - lactic levels was slightly elevated, will repeat lactic acid - No signs of tension pneumothorax to explain hypotension - cortisol levels were within normal limits (2) Cholecystitis: Code(s): K81.9 - Cholecystitis, unspecified Status: Deleted Assessment and Plan: acute vs chronic HIDA scan showing acute cholecystitis but post op diagnosis is chronic cholecystitis with choledocolithiasis s/p lap chapo , RUQ BRIANNA drain in place On Iv abx will continue supportive care - surgery following the patient (3) Pneumonia: Qualifiers: Pneumonia type: due to unspecified organism Laterality: bilateral Lung location: lower lobe of lung Qualified Code(s): J18.9 - Pneumonia, unspecified organism Code(s): J18.9 - Pneumonia, unspecified organism Status: Ruled-out Assessment and Plan: Appears to be more atelectasis than pneumonia patient 5 L high-flow nasal cannula (4) Adult failure to thrive: Code(s): R62.7 - Adult failure to thrive Status: Acute Assessment and Plan: - patient noted to have poor po intake by [facility] staff leading to admission and w/u - last albumin is 2.8 - patient therapy evaluated the patient. recommended puree diet with honey thick liquids (5) Hypothyroidism: Code(s): E03.9 - Hypothyroidism, unspecified Status: Chronic Assessment and Plan: - continue IV Synthroid (6) Down's syndrome: Code(s): Q90.9 - Down syndrome, unspecified Status: Chronic Assessment and Plan: hold xanax continue buspar , paxil and remeron when able to take po (7) Subcutaneous emphysema: Code(s): T79.7XXA - Traumatic subcutaneous emphysema, initial encounter Status: Acute Assessment and Plan: - no pneumothorax noted on cxr - unclear etiology for subcutaneous empysema - will repeat cxr in am - currently on 2 lit/miin oxygen with stable sats (8) DVT prophylaxis: Code(s): Z29.9 - Encounter for prophylactic measures, unspecified Status: Acute Assessment and Plan: lovenox Additional Plan code status: Do not resuscitate Critical care time spent: 32 minutes Subjective Date/time seen: 10/28/19 13:25 REASON FOR CONSULT: shock, hypovolemia, laparoscopic cholecystectomy, pneumonia, down syndrome 10/28/2019: Patient seen examined this morning in the ICU. Remains on Levohed at 2 mcg/min. bedside RN weaning Levophed. Patient has down syndrome, some dementia, anxiety. Patient not participating in oral care. denies any pain or trouble breathing. States he is not hungry when asked. Patient is incontinent of urine, remains on maintenance IV fluids, LR at 100 mL/hour Review of Systems Review of Systems: ROS unobtainable: Yes unobtainable due to mental status Exam Narrative: Exam Narrative: General awake , gives one-word answers, moves all extremities Eyes Normal conjunctiva. PERRLA HEENT , poor dentition and dry oral mucosa noted Neck supple , CVS S1-S2 no murmur, regular rate and rhythm Respiratory clear breath sounds bilaterally no chest wall crepitus felt GI soft , tender , lap chapo scars seen , No BS, BRIANNA drain note RUQ GEAR HOBBER moves all 4 extremities but does not follow command Psychiatric - mental retardation due to Downs syndrome Extremities no edema. Compartments are soft with peripheral pulses palpable. Objective Data
--- NOTE | 2019-10-28 14:17 | PCDIET ---
Nutrition Follow-Up Complete: Altered Nutrition Related Laboratory Values as evidenced by hypernatremia as evidenced by Na 149 Meet estimated energy needs Goal: Goal not met. Continue with current goal. Pt current nutrition is Low fat, pureed, thickened liquids + supplements. Nutrition recommendation: Agree Last recorded weight is 48.8 kg (Need new wt) Bowel Motility: Labs Reviewed: Protein 5.0, Albumin 2.3, Glucose 116 Meds Noted: LRs, KCL, Flagyl, Fentanly, Levo Additional Notes: Pt transfeerred to ICU s/p lap chapo. Only two intakes noted over the last seven days due to surgery, npo, and food refusal. Intakes were minimal at 10 and 25%. Protein low at 5.0 and Albumin low at 2.3. Pt is on nectar thick liquids, getting Ensure compact twice daily. Due to poor PO intake, supplement changed to Enlive TID. Ensure Enlive provides 350kcal, 20g of protein, and 26 essential vitamins and minerals per serving. Recommend getting a new wt to assess wt loss since admission. We will continue to monitor PO intake and wt daily in ICU.
[2019-10-28 14:28] LABS: Lactic Acid Reflex 1.9 mmol/L (0.7-2.1)
--- NOTE | 2019-10-28 15:48 | PM.IMPN ---
Progress Note: A&P Assessment and Plan (1) Cholelithiasis: Qualifiers: Biliary obstruction: without biliary obstruction Cholecystitis presence: without cholecystitis Cholelithiasis location: gallbladder Qualified Code(s): K80.20 - Calculus of gallbladder without cholecystitis without obstruction Code(s): K80.20 - Calculus of gallbladder without cholecystitis without obstruction Status: Deleted Assessment and Plan: POD#[address] Pandya this morning. Still hypotensive on fluids and vasopressors He remains on IV ceftriazone and metronidazole today (day 7).for cholecystitis (2) Pneumonia: Qualifiers: Laterality: bilateral Lung location: lower lobe of lung Pneumonia type: due to unspecified organism Qualified Code(s): J18.9 - Pneumonia, unspecified organism Code(s): J18.9 - Pneumonia, unspecified organism Status: Ruled-out Assessment and Plan: CT showed possible pneumonia pt is on IV ceftriaxone and flagyl, bc is negative (3) Prolonged pt (prothrombin time): Code(s): R79.1 - Abnormal coagulation profile Status: Acute Assessment and Plan: Improved. (4) Gastritis: Qualifiers: Chronicity: unspecified Gastritis bleeding: without bleeding Gastritis type: unspecified gastritis Qualified Code(s): K29.70 - Gastritis, unspecified, without bleeding Code(s): K29.70 - Gastritis, unspecified, without bleeding Status: Acute Assessment and Plan: EGD 10/22/[address] Starr demonstrated mild to moderate diffuse gastritis. Continue protonix. (5) Acute hypokalemia: Code(s): E87.6 - Hypokalemia Status: Resolved Assessment and Plan: (6) Proctitis: Code(s): K62.89 - Other specified diseases of anus and rectum Status: Resolved Assessment and Plan: (7) Down's syndrome: Code(s): Q90.9 - Down syndrome, unspecified Status: Chronic Assessment and Plan: Maintained on home Remeron Subjective Date/time seen: 10/28/19 15:48 Interval history: Mr. Jackson is a 59yo male seen in follow up this afternoon, transferred to ICU postoperatively due to persistent hypotension. Sp lap cholecystectomy. Mild Sob, pt is not giving a good history. Cxr recent shows - bilateral pneumonia. pt is not a good historian, but looks tired. pt has Down syndrome Review of Systems Review of Systems: All systems reviewed & are unremarkable except as noted in HPI and below Constitutional: Constitutional: Reports malaise Gastrointestinal: Gastrointestinal: Reports abdominal pain Exam Narrative: Exam Narrative: General: Downs facies, tired appearance Neck: Webbed, right IJ central line. HEENT: Normocephalic Cardiovascular: Rate and rhythm are regular. Respiratory: decreased breath sounds on 5 liters of oxygen Abdomen: fresh abdominal incision Extremities: no edema Objective Data Vital Signs Vital Signs: Vital Signs - 24 hr 10/27/19 16:00 10/27/19 16:01 10/27/19 18:00 Temperature 36.7 C Pulse Rate 68 90 100 Respiratory Rate 20 18 Blood Pressure 76/43 L 113/72 Pulse Oximetry 89 L 90 10/27/19 20:00 10/27/19 20:56 10/27/19 21:42 Temperature 36.3 C L Pulse Rate 106 H 98 Respiratory Rate 28 H 30 H Blood Pressure 116/78 118/70 Pulse Oximetry 93 95 92 10/28/19 00:00 10/28/19 01:31 10/28/19 03:55 Temperature 36.5 C 36.8 C Pulse Rate 78 119 H 71 Respiratory Rate 19 21 H 17 Blood Pressure 99/69 L 99/75 L 101/79 Pulse Oximetry 97 92 100 10/28/19 04:00 10/28/19 05:43 10/28/19 06:15 Temperature 37.2 C Pulse Rate 103 H 96 Respiratory Rate 16 Blood Pressure 110/66 Pulse Oximetry 95 92 03/26/20 08:00 10/28/19 10:00 10/28/19 10:20 Temperat
[2019-10-28] MEDS: SENNA/DOCUSATE SODIUM TABLET 1 TAB PO (20:53)
[2019-10-28] MEDS: MIRTAZAPINE 7.5 MG TABLET PO (20:54)
[2019-10-28 23:56] LABS: Glucose Point of Care 102 (65-105)
[2019-10-28 23:56] LABS: Glucose Point of Care 95 (65-105)
[2019-10-29] VITALS (15 sets, daily range): BP systolic 79–119; BP diastolic 50–80; PULSE 68–102; RESP 11–19; TEMP 36.4–37.2; O2SAT 89–100
[2019-10-29] MEDS: IBUPROFEN IV 800 MG/200 ML 800 MG/200 ML BAG 400 MG IVPB (00:27)
[2019-10-29 05:49] LABS: Hematocrit 28.4 % (42.0-52.0); Hemoglobin 9.5 g/dL (14.0-18.0); Mean Corpuscular HGB Conc 33.5 g/dl (32-36); Mean Corpuscular Hemoglobin 27.9 pg (26-34); Mean Corpuscular Volume 83.5 fl (80-100); Mean Platelet Volume 10.1 fl (7.4-10.4); Platelet Count Result 237 k/mm3 (150-375); Red Cell Distribution Width 19.6 % (11.5-14.5); White Blood Count 7.3 K/mm3 (4.5-10.0)
[2019-10-29] MEDS: metroNIDAZOLE 500 MG/ISO 100ML 500 MG/100 ML BAG 100 MG IVPB ×3 (05:49→18:01)
[2019-10-29] MEDS: LACTATED RINGERS 1,000 ML 100 ML IV CONT ×2 (05:52→17:59)
[2019-10-29] MEDS: LEVOTHYROXINE SODIUM INJ 100 MCG/5 ML VIAL 50 MCG IV PUSH (05:54)
[2019-10-29 06:20] LABS: Blood Urea Nitrogen 3 mg/dL (9-20); Calcium 7.4 mg/dL (8.4-10.2); Carbon Dioxide 37 mmol/L (22-30); Chloride 101 mmol/L (98-107); Estimated CRCL calculation 94 ml/min; Estimated Glomerular Filt Rate > 60; Glucose 79 mg/dL (75-110); Potassium 2.6 mmol/L (3.4-5.0); Sodium 137 mmol/L (137-145)
--- NOTE | 2019-10-29 07:08 | WPDCDIQUERY2 ---
CDI Query Clarification Request TWO QUERIES 1) Pneumonia on problem list with status as ruled out . CT showed possible pneumonia pt is on IV ceftriaxone and flagyl, bc is negative also documented. Under subjective on 10/27: Cxr recent shows - bilateral pneumonia Please clarify if pneumonia was ruled in or ruled out. 2) Shock documented by Dr Martel and Dr Pandya Hypotension documented by hospitalists Please clarify if shock was ruled in or ruled out. Also if ruled in please specify type/cause: hypovolemic, septic, cardiac, other, unable to determine. <Sonia Vinson RN - Last Filed: 10/29/19 07:14>
--- NOTE | 2019-10-29 07:34 | PM.PNGS ---
Progress Note: A&P Assessment and Plan (1) Shock: Code(s): R57.9 - Shock, unspecified Status: Acute Assessment and Plan: Off Levophed. Okay to transfer out of ICU from my perspective. (2) Chronic cholecystitis due to gallbladder calculus with obstruction: Code(s): K80.11 - Calculus of gallbladder with chronic cholecystitis with obstruction Status: Chronic Assessment and Plan: Severe chronic cholecystitis. Patient doing okay after difficult laparoscopic cholecystectomy yesterday. Looks more alert than he did before surgery but still not eating. Accommodations to diet per speech therapy eval noted. Hopefully will become more alert as he continues to heal. Probably DC BRIANNA drain tomorrow. (3) Adult failure to thrive: Code(s): R62.7 - Adult failure to thrive Status: Acute Assessment and Plan: See above. (4) Down's syndrome: Code(s): Q90.9 - Down syndrome, unspecified Status: Chronic Subjective Subjective Date/Time Seen: 10/29/19 07:34 Post Op day: 2 Patient reports: no new complaints ( Remains nonverbal.) Review of Systems Review of Systems: ROS unobtainable: Yes unobtainable due to mental status Exam GI: Inspection: incision ( Healing well, serous fluid in BRIANNA drain.) GI Palp: Yes Soft to palpation and Yes Tenderness to palpation present (GI) Auscultation: Hypoactive bowel sounds present Objective Data Vital Signs Vital Signs: Vital Signs - 24 hr 10/28/19 08:00 10/28/19 10:00 10/28/19 10:20 Temperature 36.5 C Pulse Rate 84 84 Respiratory Rate 17 19 Blood Pressure 103/61 96/60 L Pulse Oximetry 94 100 100 10/28/19 11:14 10/28/19 11:39 10/28/19 12:00 Temperature 37.3 C Pulse Rate 117 H Respiratory Rate 26 H Blood Pressure 115/71 Pulse Oximetry 97 94 92 10/28/19 14:00 10/28/19 16:00 10/28/19 18:00 Temperature 36.9 C Pulse Rate 96 86 108 H Respiratory Rate 17 20 17 Blood Pressure 81/68 L 81/53 L 97/67 L Pulse Oximetry 100 98 91 10/28/19 20:00 10/28/19 22:00 10/29/19 00:00 Temperature 37.2 C 36.6 C Pulse Rate 90 88 91 Respiratory Rate 21 H 26 H 19 Blood Pressure 98/59 L 95/62 L 111/68 Pulse Oximetry 98 98 99 10/29/19 02:00 10/29/19 04:00 10/29/19 06:00 Temperature 36.8 C Pulse Rate 95 89 80 Respiratory Rate 16 16 15 Blood Pressure 119/76 112/59 L 97/76 L Pulse Oximetry 99 100 100 Intake/Output Intake/Output: Intake & Output 10/26/19 10/27/19 10/28/19 10/29/19 23:59 23:59 23:59 23:59 Intake Total 3050 3050 3555 1433 Output Total 600 170 595 20 Balance 2450 2880 2960 1413 Meds/Results Medications: Active Medications Generic Name Dose Route Start Last Admin Trade Name Freq PRN Reason Stop Dose Admin Acetaminophen 650 mg 10/19/19 17:42 10/25/19 20:55 Tylenol Tablet PO 650 mg Q4H PRN Administration Mild Pain (1-3) or Fever Hydrocodone Bitart/Acetaminophen 1 tab 10/27/19 12:59 [place] 5-325 Mg PO Q4H PRN Pain Rated 7-10 Alprazolam 0.5 mg 10/24/19 17:00 10/26/19 16:59 Xanax PO Not Given BID BRITTNEY Buspirone HCl 5 mg 10/19/19 21:00 10/28/19 20:53 Buspar PO 5 mg Q12HR BRITTNEY Administration Enoxaparin Sodium 40 mg 10/28/19 09:00 10/28/19 08:44 Lovenox SUB-Q 40 mg DAILY BRITTNEY Administration Fentanyl Citrate 25 mcg 10/27/19 13:25 10/28/19 01:42 Sublimaze IV PUSH 25 mcg Q1H PRN Administration abdominal pain Ceftriaxone Sodium/Dextrose 1 gm in 50 mls @ 100 mls/hr 10/22/19 13:05 10/28/19 11:11 Rocephin 1 Gm/D5w 50 Ml IVPB Infused QAM BRITTNEY Infusion Metronidazole 500 mg in 100 mls @ 100 mls/hr 10/22/19 18:00 10/29/19 06:50 Flagyl 500 Mg/Iso Soln 100 Ml IVPB Infused Q6HR BRITTNEY Infusion Ibuprofen 800 mg in 200 mls @ 400 mls/hr 10/27/19 12:59 10/29/19 01:11 Caldolor 800 Mg/200 Ml IVPB Infused Q6H PRN Infusion Pain Rated 4-6 Norepinephrine Bitartrate 8 mg in 250 mls @ 0
[2019-10-29] MEDS: MAGNESIUM SULF 2 GM/WATER 50ML 2 GM/50 ML BAG IVPB (08:45)
[2019-10-29] MEDS: PANTOPRAZOLE SODIUM IV 40 MG VIAL IV PUSH ×2 (08:46→20:47)
[2019-10-29] MEDS: PRAVASTATIN SODIUM 20 MG TABLET 60 MG PO (08:46)
[2019-10-29] MEDS: PAROXETINE 20 MG TABLET PO (08:46)
[2019-10-29] MEDS: ENOXAPARIN 40 MG/0.4 ML SYRINGE SUB-Q (08:47)
[2019-10-29] MEDS: TAMSULOSIN HCL 0.4 MG CAPSULE PO (08:47)
[2019-10-29] MEDS: busPIRone HCL 5 MG TABLET PO (08:47)
[2019-10-29] MEDS: POTASSIUM CHLORIDE 20 MEQ TABLET.ER PO (08:48)
--- NOTE | 2019-10-29 09:24 | WPDINTPN ---
Progress Note: A&P Assessment and Plan (1) Shock: Code(s): R57.9 - Shock, unspecified Status: Acute Assessment and Plan: - Hypotension post cholecystectomy - Unclear etiology ?? hypovolemia worsened with sedation and anaesthesia , infectious cause - patient was fluid resuscitated. OFF Levophed - patient incontinent of urine, according the bedside RN he is making a lot of Urine. patient not keeping the condom catheter in place - continue IV ceftriaxone and Flagyl - afebrile - l lactic acid has normalized - No signs of tension pneumothorax to explain hypotension - cortisol levels were within normal limits (2) Cholecystitis: Code(s): K81.9 - Cholecystitis, unspecified Status: Deleted Assessment and Plan: acute vs chronic HIDA scan showing acute cholecystitis but post op diagnosis is chronic cholecystitis with choledocolithiasis s/p lap chapo , RUQ BRIANNA drain in place On Iv abx will continue supportive care - surgery following the patient (3) Pneumonia: Qualifiers: Pneumonia type: due to unspecified organism Laterality: bilateral Lung location: lower lobe of lung Qualified Code(s): J18.9 - Pneumonia, unspecified organism Code(s): J18.9 - Pneumonia, unspecified organism Status: Ruled-out Assessment and Plan: Appears to be more atelectasis than pneumonia patient 6 L high-flow nasal cannula (4) Adult failure to thrive: Code(s): R62.7 - Adult failure to thrive Status: Acute Assessment and Plan: - patient noted to have poor po intake by custodial staff leading to admission and w/u - last albumin is 2.8 - patient therapy evaluated the patient. recommended puree diet with honey thick liquids (5) Hypothyroidism: Code(s): E03.9 - Hypothyroidism, unspecified Status: Chronic Assessment and Plan: - continue IV Synthroid (6) Down's syndrome: Code(s): Q90.9 - Down syndrome, unspecified Status: Chronic Assessment and Plan: hold xanax continue buspar , paxil and remeron when able to take po (7) Subcutaneous emphysema: Code(s): T79.7XXA - Traumatic subcutaneous emphysema, initial encounter Status: Acute Assessment and Plan: - no pneumothorax noted on cxr - unclear etiology for subcutaneous empysema - chest x-ray shows stable by basilar airspace opacities consistent with atelectasis versus pneumonia, decreased subcutaneous edema - continue antibiotics (8) DVT prophylaxis: Code(s): Z29.9 - Encounter for prophylactic measures, unspecified Status: Acute Assessment and Plan: lovenox Additional Plan will update family code status: Do not resuscitate Critical care time spent: 32 minutes Subjective Date/time seen: 10/29/19 09:24 REASON FOR CONSULT: shock, hypovolemia, laparoscopic cholecystectomy, pneumonia, down syndrome 10/29/2019: Patient seen examined this morning in the ICU. OFF Levohed. Patient has down syndrome, dementia, anxiety. patient more awake this morning, cooperating with his care and examination but not answering to questions. patient removed his condom catheter, has been incontinent urine. Positive bowel movements. Continue maintenance IV fluids Review of Systems Review of Systems: ROS unobtainable: Yes unobtainable due to mental status Exam Narrative: Exam Narrative: General awake , does not answer questions this morning, moves all extremities Eyes Normal conjunctiva. PERRLA HEENT , poor dentition and dry oral mucosa noted Neck supple , CVS S1-S2 no murmur, regular rate and rhythm Respiratory good air entry, decreased breath sounds at bases, no chest wall crepitus felt GI soft, mild tenderness, laparoscopic scars noted, normoactive bowel sounds. 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
--- NOTE | 2019-10-29 11:00 | PCNFU ---
Nutrition Follow-Up Complete: Altered Nutrition Related Laboratory Values as evidenced by hypernatremia as evidenced by Na 149 Meet estimated energy needs Goal:limited progress towards goal. Pt current nutrition is Pureed, Level 4/Low Fat diet with Mildly Thick consistencies. Nutrition recommendation: Agree Last recorded weight is 48.8 kg. (NO new weight) Bowel Motility: +BM 10/28 Labs Reviewed: Cr 0.5,BUN 3,K 2.6 Meds Noted: Remeron,Flagyl, LR @ 100 ml/hr Additional Notes: Patient intake's have been very poor, refusing meals. Nursing even called patients mother today to see if she could get the patient to eat. Diet supplement changes to Ensure Enlive TID (350 kcals and 20 gms protein)and Thrive Ice Cream(270 kcals and 9 gms protein), both are Mildly Thick, Level 2. Plans to start TPN today. Recommend:Clinimix E 5/15 at 40 ml/hr with 250 ml of 20% Emulsion. Current TPN will provide patient with 1182 kcals and 48 gms protein which will meet 62% of patients caloric needs. MD will be speaking to the patients family regarding possible PEG due to Protein Calorie Malnutrition. Monitoring; Will monitor every 3 days.
[2019-10-29 12:25] LABS: Partial Thromboplastin Time 63.4 SECONDS (22.3-36.8)
[2019-10-29 12:26] LABS: Alanine Aminotransferase 27 U/L (4-50); Alkaline Phosphatase 86 U/L (38-126); Aspartate Amino Transferase 56 U/L (17-59); Bilirubin,Total < 0.1 mg/dL (0.2-1.3); Blood Urea Nitrogen 4 mg/dL (9-20); Calcium 7.1 mg/dL (8.4-10.2); Carbon Dioxide 34 mmol/L (22-30); Chloride 101 mmol/L (98-107); Estimated CRCL calculation 94 ml/min; Estimated Glomerular Filt Rate > 60; Glucose 83 mg/dL (75-110); Magnesium 2.7 mg/dL (1.6-2.3); Potassium 3.2 mmol/L (3.4-5.0); Sodium 137 mmol/L (137-145)
[2019-10-29 12:36] LABS: Basophils Percent Auto 0.5 % (0.2-1.2); Eosinophils Absolute Auto 0.1 K/mm3 (0-0.3); Eosinophils Percent Auto 1.2 % (0-4.4); Hematocrit 28.5 % (42.0-52.0); Hemoglobin 9.2 g/dL (14.0-18.0); Immature Granulocyte Absolute 0.08 K/mm3 (0.00-0.031); Immature Granulocyte Percent A 1.2 % (0-0.5); Lymphocytes Absolute Auto 1.05 K/mm3 (0.9-3.2); Mean Corpuscular HGB Conc 32.3 g/dl (32-36); Mean Corpuscular Hemoglobin 27.9 pg (26-34); Mean Corpuscular Volume 86.4 fl (80-100); Mean Platelet Volume 11.1 fl (7.4-10.4); Monocytes Absolute Auto 0.3 K/mm3 (0.1-0.6); Monocytes Percent Auto 4.9 % (2.6-8.5); Neutrophils Percent Auto 76.2 % (45.5-73.1); Platelet Count Result 220 k/mm3 (150-375); Red Cell Distribution Width 19.9 % (11.5-14.5); White Blood Count 6.6 K/mm3 (4.5-10.0)
[2019-10-29 12:37] LABS: Transferrin < 80 mg/dL (206-381)
--- NOTE | 2019-10-29 12:37 | PCSTNOTE ---
The patient treatment was not able to be completed on 10/29/19 due to pateint fatigue and patient refusal. Therapist set up plan of care in order to upgrade diet consistency from pureed/mildly thickened liquids to upgrade to soft diet and regular liquids. Nursing reports patient has been flat-out refusing oral feedings today and mother phone call has not facilitate increased oral intake. Therefore direct ST not attempted today as our goal was not to increase oral intake but to upgrade diet when able. Will plan to continue treatment per plan of care.
[2019-10-29] MEDS: FAT EMULSIONS IV 20% 250 ML 20.8 ML IVPB (13:40)
[2019-10-29 14:04] LABS: Glucose Point of Care 88 (65-105)
--- NOTE | 2019-10-29 16:20 | PM.IMPN ---
Progress Note: A&P Assessment and Plan (1) Cholelithiasis: Qualifiers: Cholelithiasis location: gallbladder Cholecystitis presence: without cholecystitis Biliary obstruction: without biliary obstruction Qualified Code(s): K80.20 - Calculus of gallbladder without cholecystitis without obstruction Code(s): K80.20 - Calculus of gallbladder without cholecystitis without obstruction Status: Deleted Assessment and Plan: POD#[address] Pandya Still hypotensive on fluids and vasopressors He remains on IV ceftriazone and flagyl for cholecystitis Pt is on banana bag (2) Pneumonia: Qualifiers: Pneumonia type: due to unspecified organism Laterality: bilateral Lung location: lower lobe of lung Qualified Code(s): J18.9 - Pneumonia, unspecified organism Code(s): J18.9 - Pneumonia, unspecified organism Status: Ruled-out Assessment and Plan: CT showed possible pneumonia pt is on IV ceftriaxone and flagyl bc is negative (3) Prolonged pt (prothrombin time): Code(s): R79.1 - Abnormal coagulation profile Status: Acute Assessment and Plan: Improved. (4) Gastritis: Qualifiers: Gastritis type: unspecified gastritis Chronicity: unspecified Gastritis bleeding: without bleeding Qualified Code(s): K29.70 - Gastritis, unspecified, without bleeding Code(s): K29.70 - Gastritis, unspecified, without bleeding Status: Acute Assessment and Plan: EGD 10/22/[address] Starr demonstrated mild to moderate diffuse gastritis. Continue protonix. (5) Acute hypokalemia: Code(s): E87.6 - Hypokalemia Status: Resolved Assessment and Plan: (6) Proctitis: Code(s): K62.89 - Other specified diseases of anus and rectum Status: Resolved Assessment and Plan: (7) Down's syndrome: Code(s): Q90.9 - Down syndrome, unspecified Status: Chronic Assessment and Plan: Maintained on home Remeron Subjective Date/time seen: 10/29/19 16:20 Interval history: Mr. Jackson is a 59yo male seen in follow up this afternoon, transferred to ICU postoperatively due to persistent hypotension. Sp lap cholecystectomy. Mild Sob, pt is not giving a good history. Cxr recent shows - bilateral pneumonia. pt is not a good historian, but looks tired. pt has Down syndrome Review of Systems Review of Systems: ROS unobtainable: Yes unobtainable due to mental status Psychiatric: Psychiatric: Denies mood swings Comments: Pleasant Exam Narrative: Exam Narrative: General: Downs facies, tired appearance Neck: Webbed, right IJ central line. HEENT: Normocephalic Cardiovascular: Rate and rhythm are regular. Respiratory: decreased breath sounds on 5 liters of oxygen Abdomen: fresh abdominal incision Extremities: no edema Objective Data Vital Signs Vital Signs: Vital Signs - 24 hr 10/28/19 18:00 10/28/19 20:00 10/28/19 22:00 Temperature 37.2 C Pulse Rate 108 H 90 88 Respiratory Rate 17 21 H 26 H Blood Pressure 97/67 L 98/59 L 95/62 L Pulse Oximetry 91 98 98 10/29/19 00:00 10/29/19 02:00 10/29/19 04:00 Temperature 36.6 C 36.8 C Pulse Rate 91 95 89 Respiratory Rate 19 16 16 Blood Pressure 111/68 119/76 112/59 L Pulse Oximetry 99 99 100 10/29/19 06:00 10/29/19 08:00 10/29/19 10:00 Temperature 36.4 C 36.4 C Pulse Rate 80 68 72 Respiratory Rate 15 13 16 Blood Pressure 97/76 L 91/70 L 80/60 L Pulse Oximetry 100 99 98 10/29/19 12:00 10/29/19 14:00 Temperature 36.4 C Pulse Rate 90 72 Respiratory Rate 11 L 11 L Blood Pressure 89/50 L 87/60 L Pulse Oximetry 95 100 Intake/Output Intake/Output: Intake & Output 10/26/19 10/27/19 10/28/19 10/29/19 23:59 23:59 23:59 23:59 Int
[2019-10-30] VITALS (12 sets, daily range): BP systolic 83–116; BP diastolic 51–94; PULSE 71–113; RESP 12–24; TEMP 36.4–37; O2SAT 90–98
[2019-10-30] MEDS: metroNIDAZOLE 500 MG/ISO 100ML 500 MG/100 ML BAG 100 MG IVPB ×5 (00:34→23:29)
[2019-10-30 00:42] LABS: Glucose Point of Care 88 (65-105)
[2019-10-30 05:03] LABS: Hemoglobin 10.1 g/dL (14.0-18.0); Mean Corpuscular HGB Conc 33.7 g/dl (32-36); Mean Corpuscular Hemoglobin 27.7 pg (26-34); Mean Corpuscular Volume 82.4 fl (80-100); Mean Platelet Volume 10.2 fl (7.4-10.4); Platelet Count Result 277 k/mm3 (150-375); Red Blood Count 3.64 M/mm3 (4.6-6.20); Red Cell Distribution Width 19.4 % (11.5-14.5); White Blood Count 7.3 K/mm3 (4.5-10.0)
[2019-10-30 05:36] LABS: Blood Urea Nitrogen 2 mg/dL (9-20); Calcium 7.2 mg/dL (8.4-10.2); Carbon Dioxide 34 mmol/L (22-30); Chloride 99 mmol/L (98-107); Estimated CRCL calculation 114 ml/min; Estimated Glomerular Filt Rate > 60; Glucose 96 mg/dL (75-110); Phosphorus 2.8 mg/dL (2.5-4.5); Potassium 2.8 mmol/L (3.4-5.0); Sodium 136 mmol/L (137-145)
[2019-10-30] MEDS: LEVOTHYROXINE SODIUM INJ 100 MCG/5 ML VIAL 50 MCG IV PUSH (05:47)
[2019-10-30] MEDS: IBUPROFEN IV 800 MG/200 ML 800 MG/200 ML BAG 400 MG IVPB ×2 (06:47→20:30)
[2019-10-30] MEDS: ENOXAPARIN 40 MG/0.4 ML SYRINGE SUB-Q (09:00)
[2019-10-30] MEDS: CALCIUM GLUC 2,000 MG/NS 100ML 2,000 MG/100 ML BAG 100 MG IVPB (09:00)
[2019-10-30] MEDS: POTASSIUM CHLORIDE 20 MEQ TABLET.ER PO (09:00)
[2019-10-30] MEDS: PRAVASTATIN SODIUM 20 MG TABLET 60 MG PO (09:01)
[2019-10-30] MEDS: PAROXETINE 20 MG TABLET PO (09:01)
[2019-10-30] MEDS: TAMSULOSIN HCL 0.4 MG CAPSULE PO (09:01)
[2019-10-30] MEDS: busPIRone HCL 5 MG TABLET PO ×2 (09:01→20:22)
[2019-10-30] MEDS: PANTOPRAZOLE SODIUM IV 40 MG VIAL IV PUSH ×2 (09:02→22:48)
--- NOTE | 2019-10-30 12:08 | WPDINTPN ---
Progress Note: A&P Assessment and Plan (1) Shock: Code(s): R57.9 - Shock, unspecified Status: Acute Assessment and Plan: - Hypotension post cholecystectomy - Unclear etiology ?? hypovolemia worsened with sedation and anaesthesia , infectious cause - patient was fluid resuscitated. OFF Levophed - patient incontinent of urine, according the bedside RN he is making a lot of Urine. - continue IV ceftriaxone and Flagyl - afebrile - lactic acid has normalized - No signs of tension pneumothorax to explain hypotension - cortisol levels were within normal limits (2) Cholecystitis: Code(s): K81.9 - Cholecystitis, unspecified Status: Deleted Assessment and Plan: acute vs chronic HIDA scan showing acute cholecystitis but post op diagnosis is chronic cholecystitis with choledocolithiasis s/p lap chapo , RUQ BRIANNA drain in place with minimal serosanguineous drainage On Iv abx will continue supportive care - surgery following the patient (3) Pneumonia: Qualifiers: Pneumonia type: due to unspecified organism Laterality: bilateral Lung location: lower lobe of lung Qualified Code(s): J18.9 - Pneumonia, unspecified organism Code(s): J18.9 - Pneumonia, unspecified organism Status: Ruled-out Assessment and Plan: chest x-ray: 1. Stable bibasilar airspace opacities, consistent with atelectasis versus pneumonia.2. Decreased subcutaneous edema - on 4 L nasal cannula, wean FiO2 as tolerated (4) Adult failure to thrive: Code(s): R62.7 - Adult failure to thrive Status: Acute Assessment and Plan: - patient noted to have poor po intake by intermediate staff leading to admission and w/u - last albumin is 2.8 - patient therapy evaluated the patient. recommended puree diet with honey thick liquids - patient did not tolerate TPN, developed diarrhea, TPN was stopped - patient tolerating oral diet morning (5) Hypothyroidism: Code(s): E03.9 - Hypothyroidism, unspecified Status: Chronic Assessment and Plan: - continue IV Synthroid (6) Down's syndrome: Code(s): Q90.9 - Down syndrome, unspecified Status: Chronic Assessment and Plan: hold xanax continue buspar , paxil and remeron when able to take po (7) Subcutaneous emphysema: Code(s): T79.7XXA - Traumatic subcutaneous emphysema, initial encounter Status: Acute Assessment and Plan: - no pneumothorax noted on cxr - unclear etiology for subcutaneous empysema - chest x-ray shows stable by basilar airspace opacities consistent with atelectasis versus pneumonia, decreased subcutaneous edema - continue antibiotics (8) DVT prophylaxis: Code(s): Z29.9 - Encounter for prophylactic measures, unspecified Status: Acute Assessment and Plan: lovenox Additional Plan discussed with mother who stated she is 94 years old, patient does not normally eat a lot even at home. He was not eating much at the intermediate also. She does not know what is normal blood pressures run. code status: Do not resuscitate Critical care time spent: 32 minutes Subjective Date/time seen: 10/30/19 12:08 REASON FOR CONSULT: shock, hypovolemia, laparoscopic cholecystectomy, pneumonia, down syndrome 10/30/2019: Patient seen examined this morning in the ICU. OFF Levohed. Patient has down syndrome, dementia, anxiety. patient more awake this morning, waves at me. Answers in yes and no. cooperating with his care and examination. has been incontinent urine. Patient developed diarrhea with TPN, so it had to be stopped. Continue maintenance IV fluids Review of Systems Review of Systems: ROS unobtainable: Yes unobtainable due to mental status Exam Narrative: Exam Narrative: General awake , does not answer questions this morning, moves all extremities Eyes Normal conjunctiva. PERRLA HEENT , poor dentition and dry oral muco
[2019-10-30 12:18] LABS: Glucose Point of Care 107 (65-105)
--- NOTE | 2019-10-30 12:32 | PCSTNOTE ---
10/30/19 ST attempted a 09:00 and 12:15 lunch time meal. Treatment was not able to be completed due to patient refusal. A phone call to the pt.'s mother at lunch did not facilitate increased oral intake as pt. continued to refuse all po options presented.
--- NOTE | 2019-10-30 12:39 | PM.IMPN ---
Progress Note: A&P Assessment and Plan (1) Cholelithiasis: Qualifiers: Biliary obstruction: without biliary obstruction Cholecystitis presence: without cholecystitis Cholelithiasis location: gallbladder Qualified Code(s): K80.20 - Calculus of gallbladder without cholecystitis without obstruction Code(s): K80.20 - Calculus of gallbladder without cholecystitis without obstruction Status: Deleted Assessment and Plan: POD#[address] Pandya Still hypotensive on fluids and vasopressors He remains on IV ceftriazone and flagyl for cholecystitis Pt is on clinimax for nutrition (2) Pneumonia: Qualifiers: Laterality: bilateral Lung location: lower lobe of lung Pneumonia type: due to unspecified organism Qualified Code(s): J18.9 - Pneumonia, unspecified organism Code(s): J18.9 - Pneumonia, unspecified organism Status: Ruled-out Assessment and Plan: CT showed possible pneumonia pt is on IV ceftriaxone and flagyl bc is negative. PT still having a active cough (3) Prolonged pt (prothrombin time): Code(s): R79.1 - Abnormal coagulation profile Status: Acute Assessment and Plan: Improved. (4) Gastritis: Qualifiers: Chronicity: unspecified Gastritis bleeding: without bleeding Gastritis type: unspecified gastritis Qualified Code(s): K29.70 - Gastritis, unspecified, without bleeding Code(s): K29.70 - Gastritis, unspecified, without bleeding Status: Acute Assessment and Plan: EGD 10/22/[address] Starr demonstrated mild to moderate diffuse gastritis. Continue protonix. (5) Acute hypokalemia: Code(s): E87.6 - Hypokalemia Status: Acute Assessment and Plan: Continue to watch potassium levels (6) Proctitis: Code(s): K62.89 - Other specified diseases of anus and rectum Status: Resolved Assessment and Plan: And feceal impactation cleared after enema 10/22 documented. (7) Down's syndrome: Code(s): Q90.9 - Down syndrome, unspecified Status: Chronic Assessment and Plan: Maintained on home Remeron Subjective Date/time seen: 10/30/19 12:39 Interval history: Mr. Jackson is a 59yo male seen in follow up this afternoon, transferred to ICU postoperatively due to persistent hypotension. Sp lap cholecystectomy. Mild Sob and cough, pt is not giving a good history. Cxr recent shows - bilateral pneumonia. Pt is not a good historian, but looks tired. pt has Down syndrome. Review of Systems Review of Systems: ROS unobtainable: Yes unobtainable due to mental status Respiratory: Respiratory: Reports chest congestion and Reports cough Exam Narrative: Exam Narrative: General: Downs facies, tired appearance, wet cough Neck: Webbed, right IJ central line. HEENT: Normocephalic Cardiovascular: Rate and rhythm are regular. Respiratory: decreased breath sounds on 5 liters of oxygen Abdomen: fresh abdominal incision Extremities: no edema Psych: Other: Down syndrome Objective Data Vital Signs Vital Signs: Vital Signs - 24 hr 10/29/19 14:00 10/29/19 16:00 10/29/19 16:28 Temperature 36.4 C Pulse Rate 72 77 73 Respiratory Rate 11 L 14 Blood Pressure 87/60 L 79/62 L Pulse Oximetry 100 98 10/29/19 18:00 10/29/19 20:00 10/29/19 20:28 Temperature 37.2 C Pulse Rate 83 86 77 Respiratory Rate 15 15 Blood Pressure 97/65 L 109/66 Pulse Oximetry 90 98 10/29/19 21:00 10/29/19 22:00 10/30/19 00:00 Temperature 36.8 C Pulse Rate 84 102 H 101 H Respiratory Rate 17 14 24 H Blood Pressure 83/74 L 117/80 95/76 L Pulse Oximetry 98 98 97 10/30/19 02:00 10/30/19 04:00 10/30/19 05:00 Temperature 37.0 C Pulse Rate 96 105 H 95 Respiratory Rate 16 1
--- NOTE | 2019-10-30 13:36 | PM.PNGS ---
Progress Note: A&P Assessment and Plan (1) Chronic cholecystitis due to gallbladder calculus with obstruction: Code(s): K80.11 - Calculus of gallbladder with chronic cholecystitis with obstruction Status: Chronic Assessment and Plan: Healing appropriately after laparoscopic cholecystectomy. Encouraged increased oral intake. Okay to her transfer to IMU. BRIANNA drain out today. (2) Down's syndrome: Code(s): Q90.9 - Down syndrome, unspecified Status: Chronic Subjective Subjective Date/Time Seen: 10/30/19 13:36 Surgically doing well. Blood pressure still remains low at times, and biggest problem is getting patient to eat or drink adequate amounts. Exam GI: Inspection: non-distended and incision (Clean/dry/intact) GI Palp: Yes Soft to palpation and No Tenderness to palpation present (GI) Other: BRIANNA drain with minimal serous output Objective Data Vital Signs Vital Signs: Vital Signs - 24 hr 10/29/19 14:00 10/29/19 16:00 10/29/19 16:28 Temperature 36.4 C Pulse Rate 72 77 73 Respiratory Rate 11 L 14 Blood Pressure 87/60 L 79/62 L Pulse Oximetry 100 98 10/29/19 18:00 10/29/19 20:00 10/29/19 20:28 Temperature 37.2 C Pulse Rate 83 86 77 Respiratory Rate 15 15 Blood Pressure 97/65 L 109/66 Pulse Oximetry 90 98 10/29/19 21:00 10/29/19 22:00 10/30/19 00:00 Temperature 36.8 C Pulse Rate 84 102 H 101 H Respiratory Rate 17 14 24 H Blood Pressure 83/74 L 117/80 95/76 L Pulse Oximetry 98 98 97 10/30/19 02:00 10/30/19 04:00 10/30/19 05:00 Temperature 37.0 C Pulse Rate 96 105 H 95 Respiratory Rate 16 18 22 H Blood Pressure 109/77 116/77 116/81 Pulse Oximetry 98 97 97 10/30/19 06:00 10/30/19 08:00 10/30/19 10:00 Temperature 36.4 C Pulse Rate 89 87 71 Respiratory Rate 14 19 12 Blood Pressure 106/94 H 96/66 L 83/51 L Pulse Oximetry 97 97 96 10/30/19 10:22 10/30/19 12:00 Temperature 36.6 C Pulse Rate 97 Respiratory Rate 22 H Blood Pressure 114/91 H Pulse Oximetry 93 96 Intake/Output Intake/Output: Intake & Output 10/27/19 10/28/19 10/29/19 10/30/19 23:59 23:59 23:59 23:59 Intake Total 3050 3555 3127 1400 Output Total 170 595 20 15 Balance 2880 2960 3107 1385 Meds/Results Medications: Active Medications Generic Name Dose Route Start Last Admin Trade Name Freq PRN Reason Stop Dose Admin Acetaminophen 650 mg 10/19/19 17:42 10/25/19 20:55 Tylenol Tablet PO 650 mg Q4H PRN Administration Mild Pain (1-3) or Fever Hydrocodone Bitart/Acetaminophen 1 tab 10/27/19 12:59 [place] 5-325 Mg PO Q4H PRN Pain Rated 7-10 Alprazolam 0.5 mg 10/24/19 17:00 10/26/19 16:59 Xanax PO Not Given BID BRITTNEY Buspirone HCl 5 mg 10/19/19 21:00 10/30/19 09:01 Buspar PO 5 mg Q12HR BRITTNEY Administration Enoxaparin Sodium 40 mg 10/28/19 09:00 10/30/19 09:00 Lovenox SUB-Q 40 mg DAILY BRITTNEY Administration Fentanyl Citrate 25 mcg 10/27/19 13:25 10/28/19 01:42 Sublimaze IV PUSH 25 mcg Q1H PRN Administration abdominal pain Ceftriaxone Sodium/Dextrose 1 gm in 50 mls @ 100 mls/hr 10/22/19 13:05 10/30/19 09:14 Rocephin 1 Gm/D5w 50 Ml IVPB 100 mls/hr QAM BRITTNEY Administration Metronidazole 500 mg in 100 mls @ 100 mls/hr 10/22/19 18:00 10/30/19 11:53 Flagyl 500 Mg/Iso Soln 100 Ml IVPB 100 mls/hr Q6HR BRITTNEY Administration Ibuprofen 800 mg in 200 mls @ 400 mls/hr 10/27/19 12:59 10/30/19 07:17 Caldolor 800 Mg/200 Ml IVPB Infused Q6H PRN Infusion Pain Rated 4-6 Norepinephrine Bitartrate 8 mg in 250 mls @ 0 mls/hr 10/27/19 14:15 03/28/20 08:57 Levophed 8 Mg/D5w 250 Ml IV CONT Not Given .Q0M BRITTNEY Protocol 0 MCG/MIN Lactated Ringer's 1,000 mls @ 75 mls/hr 10/27/19 14:55 10/30/19 10:10 Lr - Lactated Ringers Iv IV CONT Infused .[id number] BRITTNEY Infusion Dextrose 1,000 mls @ 50 mls/hr 10/29/19 12:02 Dextrose 10% IV CONT .Q20H PRN if P
--- NOTE | 2019-10-30 15:19 | PC.NURSE ---
This patient, Lino Jackson, was received from ICU on 10/30/19 at 1519. Personal belongings list checked and signed. Patient/family oriented to unit policies and routines
--- NOTE | 2019-10-30 15:30 | PC.NURSE ---
Patient transferred to room 345 via W/C. Report given to Crissy SHEA. Sitter at bedside.
--- NOTE | 2019-10-30 17:45 | PC.NURSE ---
Pt received from ICU. Bag of Lactated ringers had not been scanned I&O could not be documented in the spreadsheet for the end of my shift. Pt had 173mls in for me while on 3rd medical.
[2019-10-30 17:46] LABS: Glucose Point of Care 96 (65-105)
[2019-10-30] MEDS: MIRTAZAPINE 7.5 MG TABLET PO (20:22)
[2019-10-30 20:57] LABS: Potassium 3.4 mmol/L (3.4-5.0)
[2019-10-30] MEDS: SENNA/DOCUSATE SODIUM TABLET 1 TAB PO (22:48)
[2019-10-30] MEDS: LACTATED RINGERS 1,000 ML 75 ML IV CONT (23:34)
[2019-10-31] VITALS: BP 96/67; PULSE 80; RESP 18; TEMP 36.3; O2SAT 97
[2019-10-31 04:00] VITALS: BP 96/53; PULSE 68; RESP 14; TEMP 36; O2SAT 95
[2019-10-31 05:44] LABS: Glucose Point of Care 76 (65-105)
[2019-10-31] MEDS: metroNIDAZOLE 500 MG/ISO 100ML 500 MG/100 ML BAG 100 MG IVPB ×3 (05:46→17:36)
[2019-10-31] MEDS: LEVOTHYROXINE SODIUM INJ 100 MCG/5 ML VIAL 50 MCG IV PUSH (05:46)
[2019-10-31 05:53] LABS: Hemoglobin 10.1 g/dL (14.0-18.0); Mean Corpuscular HGB Conc 33.7 g/dl (32-36); Mean Corpuscular Hemoglobin 27.7 pg (26-34); Mean Corpuscular Volume 82.2 fl (80-100); Mean Platelet Volume 10.2 fl (7.4-10.4); Platelet Count Result 315 k/mm3 (150-375); Red Blood Count 3.65 M/mm3 (4.6-6.20); White Blood Count 4.5 K/mm3 (4.5-10.0)
[2019-10-31 06:21] LABS: Calcium 7.6 mg/dL (8.4-10.2); Carbon Dioxide 35 mmol/L (22-30); Chloride 102 mmol/L (98-107); Estimated CRCL calculation 114 ml/min; Estimated Glomerular Filt Rate > 60; Glucose 85 mg/dL (75-110); Phosphorus 3.3 mg/dL (2.5-4.5); Sodium 137 mmol/L (137-145)
[2019-10-31 06:45] LABS: Blood Urea Nitrogen < 2 mg/dL (9-20)
[2019-10-31] MEDS: busPIRone HCL 5 MG TABLET PO ×2 (08:14→21:28)
[2019-10-31] MEDS: PAROXETINE 20 MG TABLET PO (08:14)
[2019-10-31] MEDS: PRAVASTATIN SODIUM 20 MG TABLET 60 MG PO (08:14)
[2019-10-31] MEDS: ENOXAPARIN 40 MG/0.4 ML SYRINGE SUB-Q (08:14)
[2019-10-31] MEDS: TAMSULOSIN HCL 0.4 MG CAPSULE PO (08:14)
[2019-10-31] MEDS: POTASSIUM CHLORIDE 20 MEQ TABLET.ER 40 MEQ PO (08:15)
[2019-10-31] MEDS: PANTOPRAZOLE SODIUM IV 40 MG VIAL IV PUSH ×2 (08:16→21:28)
[2019-10-31 10:02] VITALS: BP 101/67; PULSE 81; RESP 16; TEMP 36.4; O2SAT 96
[2019-10-31 12:02] LABS: Glucose Point of Care 92 (65-105)
--- NOTE | 2019-10-31 13:56 | PM.PNGS ---
Progress Note: A&P Assessment and Plan (1) Chronic cholecystitis due to gallbladder calculus with obstruction: Code(s): K80.11 - Calculus of gallbladder with chronic cholecystitis with obstruction Status: Chronic Assessment and Plan: Healing appropriately after laparoscopic cholecystectomy. Encouraged increased oral intake. Home soon. (2) Down's syndrome: Code(s): Q90.9 - Down syndrome, unspecified Status: Chronic Subjective Subjective Date/Time Seen: 10/31/19 13:56 No new problems. Patient on surgical floor now and remaining stable. Exam GI: Inspection: incision (C/D/I) GI Palp: Yes Soft to palpation and No Tenderness to palpation present (GI) Percussion: Yes normal to percussion Auscultation: normal bowel sounds Objective Data Vital Signs Vital Signs: Vital Signs - 24 hr 10/30/19 14:00 10/30/19 18:53 10/30/19 20:37 Temperature 36.5 C Pulse Rate 98 88 89 Respiratory Rate 19 16 Blood Pressure 99/77 L Pulse Oximetry 97 90 93 10/31/19 00:00 10/31/19 04:00 10/31/19 10:02 Temperature 36.3 C L 36.0 C L 36.4 C L Pulse Rate 80 68 81 Respiratory Rate 18 14 16 Blood Pressure 96/67 L 96/53 L 101/67 Pulse Oximetry 97 95 96 Intake/Output Intake/Output: Intake & Output 10/28/19 10/29/19 10/30/19 10/31/19 23:59 23:59 23:59 23:59 Intake Total 3555 3127 1740 350 Output Total 595 20 615 6 Balance 2960 3107 1125 344 Meds/Results Medications: Active Medications Generic Name Dose Route Start Last Admin Trade Name Freq PRN Reason Stop Dose Admin Acetaminophen 650 mg 10/19/19 17:42 10/25/19 20:55 Tylenol Tablet PO 650 mg Q4H PRN Administration Mild Pain (1-3) or Fever Hydrocodone Bitart/Acetaminophen 1 tab 10/27/19 12:59 10/31/19 01:41 [place] 5-325 Mg PO 1 tab Q4H PRN Administration Pain Rated 7-10 Alprazolam 0.5 mg 10/24/19 17:00 10/26/19 16:59 Xanax PO Not Given BID BRITTNEY Buspirone HCl 5 mg 10/19/19 21:00 10/31/19 08:14 Buspar PO 5 mg Q12HR BRITTNEY Administration Enoxaparin Sodium 40 mg 10/28/19 09:00 10/31/19 08:14 Lovenox SUB-Q 40 mg DAILY BRITTNEY Administration Fentanyl Citrate 25 mcg 10/27/19 13:25 10/28/19 01:42 Sublimaze IV PUSH 25 mcg Q1H PRN Administration abdominal pain Ceftriaxone Sodium/Dextrose 1 gm in 50 mls @ 100 mls/hr 10/22/19 13:05 10/31/19 08:45 Rocephin 1 Gm/D5w 50 Ml IVPB Infused QAM BRITTNEY Infusion Metronidazole 500 mg in 100 mls @ 100 mls/hr 10/22/19 18:00 10/31/19 13:29 Flagyl 500 Mg/Iso Soln 100 Ml IVPB 100 mls/hr Q6HR BRITTNEY Administration Ibuprofen 800 mg in 200 mls @ 400 mls/hr 10/27/19 12:59 10/30/19 21:00 Caldolor 800 Mg/200 Ml IVPB 0 mls/hr Q6H PRN Infusion Pain Rated 4-6 Norepinephrine Bitartrate 8 mg in 250 mls @ 0 mls/hr 10/27/19 14:15 10/30/19 08:57 Levophed 8 Mg/D5w 250 Ml IV CONT Not Given .Q0M BRITTNEY Protocol 0 MCG/MIN Lactated Ringer's 1,000 mls @ 75 mls/hr 10/27/19 14:55 10/30/19 23:34 Lr - Lactated Ringers Iv IV CONT 75 mls/hr .[id number] BRITTNEY Administration Dextrose 1,000 mls @ 50 mls/hr 10/29/19 12:02 Dextrose 10% IV CONT .Q20H PRN if PN is interrupted Ibuprofen 400 mg 10/27/19 12:59 Motrin PO Q6H PRN Pain Rated 1-3 Levothyroxine Sodium 50 mcg 10/28/19 06:30 10/31/19 05:46 Levothyroxine Sodium Inj IV PUSH 50 mcg DAILY@0630 BRITTNEY Administration Lorazepam 0.5 mg 10/26/19 08:02 Ativan Inj IV PUSH Q6H PRN Anxiety Miconazole Nitrate 1 applic 10/22/19 09:00 10/31/19 08:14 Aloe [place] TOPICAL 1 applic Q12HR BRITTNEY Administration Mirtazapine 7.5 mg 10/19/19 21:00 10/30/19 20:22 Remeron PO 7.5 mg HS BRITTNEY Administration Ondansetron HCl 4 mg 10/27/19 12:59 Zofran Inj IV PUSH Q4H PRN Nausea And Vomiting Pantoprazole Sodium 40 mg 10/23/19 09:00 10/31/19 08:16 Protonix Iv IV PUSH 40 mg Q12HR BRITTNEY
[2019-10-31 14:00] VITALS: BP 108/66; PULSE 82; RESP 18; TEMP 36.5; O2SAT 92
--- NOTE | 2019-10-31 14:27 | PM.IMPN ---
Progress Note: A&P Assessment and Plan (1) Cholelithiasis: Qualifiers: Cholelithiasis location: gallbladder Cholecystitis presence: without cholecystitis Biliary obstruction: without biliary obstruction Qualified Code(s): K80.20 - Calculus of gallbladder without cholecystitis without obstruction Code(s): K80.20 - Calculus of gallbladder without cholecystitis without obstruction Status: Deleted Assessment and Plan: POD#[address] Pandya Still hypotensive on fluids and vasopressors He remains on IV ceftriazone and flagyl for cholecystitis Pt is on clinimax for nutrition Mr. Jackson is a 59yo male s/p lap chapo POD #4 was transferred to ICU postoperatively due to persistent hypotension. Now out of ICU on on medical floor, patient with down syndrome unable to provide detailed review of symptoms however. Mild Sob and cough, pt is not giving a good history. Cxr recent shows, bilateral pneumonia. Will repeat chest x-ray tomorrow, pt is not a good historian, has a poor appetite, but looks tired. pt has Down syndrome. (2) Pneumonia: Qualifiers: Pneumonia type: due to unspecified organism Laterality: bilateral Lung location: lower lobe of lung Qualified Code(s): J18.9 - Pneumonia, unspecified organism Code(s): J18.9 - Pneumonia, unspecified organism Status: Ruled-out Assessment and Plan: CT showed possible pneumonia pt is on IV ceftriaxone and flagyl bc is negative. PT still having a active cough will repeat checks x-ray tomorrow (3) Prolonged pt (prothrombin time): Code(s): R79.1 - Abnormal coagulation profile Status: Acute Assessment and Plan: Improved. (4) Gastritis: Qualifiers: Gastritis type: unspecified gastritis Chronicity: unspecified Gastritis bleeding: without bleeding Qualified Code(s): K29.70 - Gastritis, unspecified, without bleeding Code(s): K29.70 - Gastritis, unspecified, without bleeding Status: Acute Assessment and Plan: EGD 10/22/[address] Starr demonstrated mild to moderate diffuse gastritis. Continue protonix. (5) Acute hypokalemia: Code(s): E87.6 - Hypokalemia Status: Acute Assessment and Plan: Continue to watch potassium levels (6) Proctitis: Code(s): K62.89 - Other specified diseases of anus and rectum Status: Resolved Assessment and Plan: And feceal impactation cleared after enema 10/22 documented. (7) Down's syndrome: Code(s): Q90.9 - Down syndrome, unspecified Status: Chronic Assessment and Plan: Maintained on home Remeron Additional Plan elevated INR--unclear reasons. No signs of liver disease. Will draw again tomorrow since he may have surgery Subjective Date/time seen: 10/31/19 14:27 Interval history: Mr. Jackson is a 59yo male s/p lap chapo POD #4 was transferred to ICU postoperatively due to persistent hypotension. Now out of ICU on on medical floor, patient with down syndrome unable to provide detailed review of symptoms however. Mild Sob and cough, pt is not giving a good history. Cxr recent shows, bilateral pneumonia. Will repeat chest x-ray tomorrow, pt is not a good historian, has a poor appetite, but looks tired. pt has Down syndrome. Review of Systems Review of Systems: ROS unobtainable: Yes unobtainable due to medical condition Exam Const: General: comfortable and no acute distress HENMT: General nose exam: Normal nares present Mouth: Yes moist mucous membranes Eyes: General: appearance normal, both eyes and all related structures Sclera: sclerae normal Neck: Neck: supple Resp: Effort & Inspection: normal respiratory effort Auscultation: clear to auscultation bilaterally Cardio:
[2019-10-31] MEDS: LACTATED RINGERS 1,000 ML 75 ML IV CONT (15:11)
[2019-10-31] MEDS: ALPRAZOLAM 0.5 MG TABLET PO (16:10)
[2019-10-31 18:00] VITALS: BP 88/56; PULSE 100; RESP 16; TEMP 36.2; O2SAT 92
[2019-10-31 18:05] LABS: Glucose Point of Care 135 (65-105)
[2019-10-31] MEDS: SENNA/DOCUSATE SODIUM TABLET 1 TAB PO (21:28)
[2019-10-31] MEDS: MIRTAZAPINE 7.5 MG TABLET PO (21:28)
[2019-10-31 22:00] VITALS: BP 85/58; PULSE 85; RESP 16; TEMP 36.2; O2SAT 90
[2019-11-01] MEDS: metroNIDAZOLE 500 MG/ISO 100ML 500 MG/100 ML BAG 100 MG IVPB ×3 (00:16→12:29)
[2019-11-01 00:32] LABS: Glucose Point of Care 97 (65-105)
[2019-11-01 02:00] VITALS: BP 103/55; PULSE 94; RESP 16; TEMP 36.4; O2SAT 91
[2019-11-01] MEDS: LACTATED RINGERS 1,000 ML 75 ML IV CONT ×2 (05:33→23:44)
[2019-11-01] MEDS: LEVOTHYROXINE SODIUM INJ 100 MCG/5 ML VIAL 50 MCG IV PUSH (05:34)
[2019-11-01 05:40] LABS: Basophils Percent Auto 0.5 % (0.2-1.2); Eosinophils Percent Auto 0.5 % (0-4.4); Hematocrit 28.7 % (42.0-52.0); Hemoglobin 9.7 g/dL (14.0-18.0); Immature Granulocyte Absolute 0.04 K/mm3 (0.00-0.031); Lymphocytes Absolute Auto 1.09 K/mm3 (0.9-3.2); Lymphocytes Percent Auto 27.9 % (18.3-44.2); Mean Corpuscular HGB Conc 33.8 g/dl (32-36); Mean Corpuscular Hemoglobin 27.5 pg (26-34); Mean Corpuscular Volume 81.3 fl (80-100); Mean Platelet Volume 10.3 fl (7.4-10.4); Monocytes Absolute Auto 0.4 K/mm3 (0.1-0.6); Monocytes Percent Auto 10.5 % (2.6-8.5); Neutrophils Absolute Auto 2.3 K/mm3 (1.3-6.7); Neutrophils Percent Auto 59.6 % (45.5-73.1); Platelet Count Result 301 k/mm3 (150-375); Red Blood Count 3.53 M/mm3 (4.6-6.20); Red Cell Distribution Width 19.5 % (11.5-14.5); White Blood Count 3.9 K/mm3 (4.5-10.0)
[2019-11-01 05:48] LABS: INR 1.2; Prothrombin Time 15.1 Seconds (11.1-14.7)
[2019-11-01 05:49] LABS: Partial Thromboplastin Time 41.3 SECONDS (22.3-36.8)
[2019-11-01 05:50] LABS: Alanine Aminotransferase 15 U/L (4-50); Albumin Level 2.3 g/dL (3.5-5.1); Alkaline Phosphatase 88 U/L (38-126); Aspartate Amino Transferase 28 U/L (17-59); Bilirubin,Total 0.2 mg/dL (0.2-1.3); Calcium 7.5 mg/dL (8.4-10.2); Carbon Dioxide 29 mmol/L (22-30); Chloride 99 mmol/L (98-107); Estimated CRCL calculation 94 ml/min; Estimated Glomerular Filt Rate > 60; Glucose 90 mg/dL (75-110); Magnesium 1.8 mg/dL (1.6-2.3); Phosphorus 3.1 mg/dL (2.5-4.5); Potassium 2.9 mmol/L (3.4-5.0); Sodium 136 mmol/L (137-145)
[2019-11-01 05:55] LABS: Blood Urea Nitrogen < 2 mg/dL (9-20)
[2019-11-01 06:00] VITALS: BP 104/71; PULSE 42; RESP 20; TEMP 36.7; O2SAT 90
[2019-11-01 06:02] LABS: Transferrin < 80 mg/dL (206-381)
[2019-11-01 06:24] LABS: Glucose Point of Care 85 (65-105)
[2019-11-01] MEDS: IBUPROFEN IV 800 MG/200 ML 800 MG/200 ML BAG 400 MG IVPB ×2 (07:44→17:29)
[2019-11-01] MEDS: ONDANSETRON INJ 4 MG/2 ML VIAL IV PUSH (07:46)
[2019-11-01] MEDS: POTASSIUM CHLORIDE 20 MEQ TABLET.ER 40 MEQ PO (08:39)
[2019-11-01] MEDS: PAROXETINE 20 MG TABLET PO (08:40)
[2019-11-01] MEDS: PANTOPRAZOLE SODIUM IV 40 MG VIAL IV PUSH ×2 (08:40→21:24)
[2019-11-01] MEDS: ENOXAPARIN 40 MG/0.4 ML SYRINGE SUB-Q (08:40)
[2019-11-01] MEDS: busPIRone HCL 5 MG TABLET PO ×2 (08:40→23:41)
[2019-11-01] MEDS: TAMSULOSIN HCL 0.4 MG CAPSULE PO (08:41)
[2019-11-01] MEDS: PRAVASTATIN SODIUM 20 MG TABLET 60 MG PO (08:41)
[2019-11-01 09:24] VITALS: PULSE 97; RESP 16; O2SAT 92
--- NOTE | 2019-11-01 11:33 | PM.PNGS ---
Progress Note: A&P Assessment and Plan (1) Chronic cholecystitis due to gallbladder calculus with obstruction: Code(s): K80.11 - Calculus of gallbladder with chronic cholecystitis with obstruction Status: Chronic Assessment and Plan: Continues to heal well after laparoscopic cholecystectomy. Pathology showing acute cholecystitis with cholelithiasis. Okay to stop antibiotics from a surgical standpoint. Currently advanced to a low fat diet with supplemental nutrition but patient still having low oral intake even after the gallbladder was removed. Unclear why he is still having failure to thrive. Dr. Pandya will plan to follow-up with the patient 2 weeks post-op. (2) Down's syndrome: Code(s): Q90.9 - Down syndrome, unspecified Status: Chronic (3) Acute hypokalemia: Code(s): E87.6 - Hypokalemia Status: Acute Assessment and Plan: K 2.9, replaced by the Hospitalist today. (4) Adult failure to thrive: Code(s): R62.7 - Adult failure to thrive Status: Acute Assessment and Plan: Still not eating well with low oral intake. Management per the Hospitalist. Additional Plan Discussed plan of care with Dr. Pandya today. Subjective Subjective Date/Time Seen: 11/01/19 11:33 Interval history: Per the nurse, patient still has low oral intake. No acute events overnight. Patient remains non-verbal. Review of Systems Review of Systems: ROS unobtainable: Yes unobtainable due to mental status Exam Const: General: comfortable and no acute distress Orientation/consciousness: Other orientation findings (Nonverbal) GI: Inspection: non-distended and incision (Incisions clean and dry. RLQ gauze dressing C/D/I. No signs of infection.) GI Palp: Yes Soft to palpation, No Guarding due to palpation present (GI) and Yes Other GI palpation findings present (Non-verbal but does not appear to be tender on my exam) Auscultation: normal bowel sounds Skin: General skin exam: normal color Extrem: General: normal to inspection Psych: Other: Calm. Nonverbal. Objective Data Vital Signs Vital Signs: Vital Signs - 24 hr 10/31/19 14:00 10/31/19 18:00 10/31/19 22:00 Temperature 36.5 C 36.2 C L 36.2 C L Pulse Rate 82 100 85 Respiratory Rate 18 16 16 Blood Pressure 108/66 88/56 L 85/58 L Pulse Oximetry 92 92 90 11/01/19 02:00 11/01/19 06:00 Temperature 36.4 C L 36.7 C Pulse Rate 94 42 L Respiratory Rate 16 20 Blood Pressure 103/55 L 104/71 Pulse Oximetry 91 90 Intake/Output Intake/Output: Intake & Output 10/29/19 10/30/19 10/31/19 11/01/19 23:59 23:59 23:59 23:59 Intake Total 3127 1740 1850 2300 Output Total 20 615 6 Balance 3107 1125 1844 2300 Meds/Results Medications: Active Medications Generic Name Dose Route Start Last Admin Trade Name Freq PRN Reason Stop Dose Admin Acetaminophen 650 mg 10/19/19 17:42 10/25/19 20:55 Tylenol Tablet PO 650 mg Q4H PRN Administration Mild Pain (1-3) or Fever Hydrocodone Bitart/Acetaminophen 1 tab 10/27/19 12:59 10/31/19 01:41 [place] 5-325 Mg PO 1 tab Q4H PRN Administration Pain Rated 7-10 Alprazolam 0.5 mg 10/24/19 17:00 10/26/19 16:59 Xanax PO Not Given BID BRITTNEY Buspirone HCl 5 mg 10/19/19 21:00 11/01/19 08:40 Buspar PO 5 mg Q12HR BRITTNEY Administration Enoxaparin Sodium 40 mg 10/28/19 09:00 11/01/19 08:40 Lovenox SUB-Q 40 mg DAILY BRITTNEY Administration Fentanyl Citrate 25 mcg 10/27/19 13:25 10/28/19 01:42 Sublimaze IV PUSH 25 mcg Q1H PRN Administration abdominal pain Ceftriaxone Sodium/Dextrose 1 gm in 50 mls @ 100 mls/hr 10/22/19 13:05 11/01/19 09:43 Rocephin 1 Gm/D5w 50 Ml IVPB 100 mls/hr QAM BRITTNEY Administration Metronidazole 500 mg in 100 mls @ 100 mls/hr 10/22/19 18:00 11/01/19 06:30 Flagyl 500 Mg/Iso Soln 100 Ml IVPB Infused Q6HR BRITTNEY Infusion Ibuprofen 800 mg in 200 mls @ 400 mls/hr 10/27/19 12:59 11/01/19 08:14 Ca
--- NOTE | 2019-11-01 12:05 | PCNFU ---
Nutrition Follow-Up Complete: Alterted Nutriton Related Laboratory Values as evidenced by hypernatremia as evidenced by Na 149 Meet estimated energy needs Goal:Progressing towards goal. Pt current nutrition is Pureed, Level 4/Low Fat. Nutrition recommendation: Agree Last recorded weight is 48.8 kg. Bowel Motility:+BM 10/31 Labs Reviewed:Na 136, Hct 28.7,Cr 0.5,Hgb 9.7 Meds Noted:Protonix,Remeron, LR @ 75 ml/hr Additional Notes: Patient had been on TPN but that had been discontinued over the weekend as the patient had developed diarrhea per MD notes. Nursing stated for breakfast patient had 75% of meal today-eggs and sausage and Ensure Enlive TID. Diet Supplements: Ensure Enlive TID (350 kcals and 20 gms protein), Thrive Ice Cream BID (270 kcals and 9 gms proteins). PO intake continues to be encouraged. Will monitor every 3 days.
[2019-11-01] MEDS: POTASSIUM CHLORIDE 20 MEQ TABLET 40 MEQ PO (12:30)
[2019-11-01 12:44] LABS: Glucose Point of Care 128 (65-105)
--- NOTE | 2019-11-01 13:13 | PCSTNOTE ---
Patient continues to refuse oral intake. No ST this date.
[2019-11-01 14:00] VITALS: BP 110/50; PULSE 72; RESP 16; TEMP 37.2; O2SAT 94
[2019-11-01 16:32] LABS: Blood Urea Nitrogen 5 mg/dL (9-20); Calcium 7.5 mg/dL (8.4-10.2); Carbon Dioxide 31 mmol/L (22-30); Chloride 101 mmol/L (98-107); Estimated CRCL calculation 69 ml/min; Estimated Glomerular Filt Rate > 60; Glucose 102 mg/dL (75-110); Potassium 3.8 mmol/L (3.4-5.0); Sodium 136 mmol/L (137-145)
[2019-11-01 17:01] LABS: Iron 25 ug/dL (49-181)
[2019-11-01 17:06] LABS: Glucose Point of Care 101 (65-105)
[2019-11-01 17:11] LABS: Percent Iron Saturation 20 % (20-50)
--- NOTE | 2019-11-01 17:19 | WPDONCPN ---
Progress Note: A/P - Additional Plan Normocytic anemia. Likely postoperative status post cholecystectomy and malnutrition .I will order iron studies and vitamin B12 level. Coagulopathy. No evidence of bleeding. PTT remains elevated but patient is also on Lovenox. Right upper quadrant pain. Status post laparoscopic cholecystectomy. No signs of infection. - Time Spent With Patient Total time spent is greater than 50% in coordination of care (as documented) at patient's floor/unit and/or counseling patient: 15 - 25 minutes Subjective Interval history: Anemia Coagulopathy Review of Systems - Review of Systems Patient looks quite comfortable. He denies any abdominal pain. Denies any fevers and chills. No bleeding. - Neurologic Reports system reviewed and no additional complaints, except as documented, Reports weakness Exam Vital signs: Temp Pulse Resp BP Pulse Ox 37.2 C 72 16 110/50 L 94 11/01/19 14:00 11/01/19 14:00 11/01/19 14:00 11/01/19 14:00 11/01/19 14:00 Lungs are clear to auscultation bilaterally Cardiovascular regular rate rhythm no murmurs Abdomen soft nontender nondistended bowel sounds are positive Extremities no edema PN: Objective Data - Labs CBC & Chem 7: 11/01/19 05:28 11/01/19 16:05 Labs: Laboratory Results - last 24 hr 10/31/19 11/01/19 11/01/19 17:38 00:21 05:28 WBC 3.9 L RBC 3.53 L Hgb 9.7 L Hct 28.7 L MCV 81.3 MCH 27.5 MCHC 33.8 RDW 19.5 H Plt Count 301 MPV 10.3 Immature Gran % (Auto) 1.0 H Neut % (Auto) 59.6 Lymph % (Auto) 27.9 [place] % (Auto) 10.5 H Eos % (Auto) 0.5 Baso % (Auto) 0.5 Lymph # (Auto) 1.09 [place] # (Auto) 0.4 Eos # (Auto) 0.0 Baso # (Auto) 0.0 Abs Immat Gran (auto) 0.04 H Absolute Neuts (auto) 2.3 Absolute Nucleated RBC 0.0 Nucleated RBC % 0.0 PT INR APTT Sodium Potassium Chloride Carbon Dioxide BUN Creatinine Estim Creat Clear Calc Estimated GFR Glucose POC Capillary Glucose 135 H 97 Calcium Phosphorus Magnesium Iron TIBC Transferrin Total Bilirubin AST ALT Alkaline Phosphatase Total Protein Albumin 11/01/19 11/01/19 11/01/19 05:28 05:29 05:32 WBC RBC Hgb Hct MCV MCH MCHC RDW Plt Count MPV Immature Gran % (Auto) Neut % (Auto) Lymph % (Auto) [place] % (Auto) Eos % (Auto) Baso % (Auto) Lymph # (Auto) [place] # (Auto) Eos # (Auto) Baso # (Auto) Abs Immat Gran (auto) Absolute Neuts (auto) Absolute Nucleated RBC Nucleated RBC % PT 15.1 H INR 1.2 APTT 41.3 H Sodium 136 L Potassium 2.9 L Chloride 99 Carbon Dioxide 29 BUN < 2 L Creatinine 0.50 L Estim Creat Clear Calc 94 Estimated GFR > 60 Glucose 90 POC Capillary Glucose 85 Calcium 7.5 L Phosphorus 3.1 Magnesium 1.8 Iron TIBC Transferrin < 80 L Total Bilirubin 0.2 AST 28 ALT 15 Alkaline Phosphatase 88 Total Protein 5.0 L Albumin 2.3 L 11/01/19 11/01/19 11/01/19 12:41 16:05 16:05 WBC RBC Hgb Hct MCV MCH MCHC RDW Plt Count MPV Immature Gran % (Auto) Neut % (Auto) Lymph % (Auto) [place] % (Auto) Eos % (Auto) Baso % (Auto) Lymph # (Auto) [place] # (Auto) Eos # (Auto) Baso # (Auto) Abs Immat Gran (auto) Absolute Neuts (auto) Absolute Nucleated RBC Nucleated RBC % PT INR APTT Sodium 136 L Potassium 3.8 Chloride 101 Carbon Dioxide 31 H BUN 5 L Creatinine 0.70 Estim Creat Clear Calc 69 Estimated GFR > 60 Glucose 102 POC Capillary Glucose 128 H Calcium 7.5 L Phosphorus Magnesium Iron 25 L TIBC 124 L Transferrin Total Bilirubin AST ALT Alkaline Phosphatase Total Protein Albumin
--- NOTE | 2019-11-01 17:29 | PM.IMPN ---
Progress Note: A&P Assessment and Plan (1) Cholelithiasis: Qualifiers: Cholelithiasis location: gallbladder Cholecystitis presence: without cholecystitis Biliary obstruction: without biliary obstruction Qualified Code(s): K80.20 - Calculus of gallbladder without cholecystitis without obstruction Code(s): K80.20 - Calculus of gallbladder without cholecystitis without obstruction Status: Deleted Assessment and Plan: POD#[address] Pandya Still hypotensive on fluids and vasopressors He remains on IV ceftriazone and flagyl for cholecystitis Pt is on clinimax for nutrition 11/01/19 17:29 Mr. Jackson is a 59yo male s/p lap chapo POD #4 was transferred to ICU postoperatively due to persistent hypotension. Now out of ICU on on medical floor, patient with down syndrome unable to provide detailed review of symptoms however. Mild Sob and cough, pt is not giving a good history. Cxr recent showed, bilateral pneumonia. Will repeat chest x-ray today does not show significant pneumonia, pt is not a good historian, has a poor appetite, but looks tired. pt has Down syndrome. Patient is seen by surgery team and terms of cholecystectomy patient states will reassess him tomorrow and possibly discharge (2) Pneumonia: Qualifiers: Pneumonia type: due to unspecified organism Laterality: bilateral Lung location: lower lobe of lung Qualified Code(s): J18.9 - Pneumonia, unspecified organism Code(s): J18.9 - Pneumonia, unspecified organism Status: Ruled-out Assessment and Plan: CT showed possible pneumonia pt is on IV ceftriaxone and flagyl bc is negative. PT still having a active cough will repeat checks x-ray tomorrow (3) Prolonged pt (prothrombin time): Code(s): R79.1 - Abnormal coagulation profile Status: Acute Assessment and Plan: Improved. (4) Gastritis: Qualifiers: Gastritis type: unspecified gastritis Chronicity: unspecified Gastritis bleeding: without bleeding Qualified Code(s): K29.70 - Gastritis, unspecified, without bleeding Code(s): K29.70 - Gastritis, unspecified, without bleeding Status: Acute Assessment and Plan: EGD 10/22/[address] Starr demonstrated mild to moderate diffuse gastritis. Continue protonix. (5) Acute hypokalemia: Code(s): E87.6 - Hypokalemia Status: Acute Assessment and Plan: Continue to watch potassium levels (6) Proctitis: Code(s): K62.89 - Other specified diseases of anus and rectum Status: Resolved Assessment and Plan: And feceal impactation cleared after enema 10/22 documented. (7) Down's syndrome: Code(s): Q90.9 - Down syndrome, unspecified Status: Chronic Assessment and Plan: Maintained on home Remeron Additional Plan elevated INR--unclear reasons. No signs of liver disease. Will draw again tomorrow since he may have surgery Subjective Date/time seen: 11/01/19 17:29 Mr. Jackson is a 59yo male s/p lap chapo POD #4 was transferred to ICU postoperatively due to persistent hypotension. Now out of ICU on on medical floor, patient with down syndrome unable to provide detailed review of symptoms however. Mild Sob and cough, pt is not giving a good history. Cxr recent showed, bilateral pneumonia. Will repeat chest x-ray today does not show significant pneumonia, pt is not a good historian, has a poor appetite, but looks tired. pt has Down syndrome. Patient is seen by surgery team and terms of cholecystectomy patient states will reassess him tomorrow and possibly discharge Review of Systems Review of Systems: ROS unobtainable: Yes unobtainable due to medical condition Exam Narrative: Exam Narrative: Patient with down syndr
[2019-11-01 17:39] LABS: Folic Acid 6.8 ng/mL (2.76->20)
[2019-11-01] MEDS: LORAZEPAM INJ 2 MG/ML VIAL 0.5 MG IV PUSH (18:23)
[2019-11-01] MEDS: SENNA/DOCUSATE SODIUM TABLET 1 TAB PO (23:23)
[2019-11-01] MEDS: MIRTAZAPINE 7.5 MG TABLET PO (23:23)
[2019-11-01 23:48] VITALS: BP 98/70; PULSE 93; RESP 16; TEMP 36.3; O2SAT 94
[2019-11-02 00:03] LABS: Glucose Point of Care 114 (65-105)
[2019-11-02] MEDS: IBUPROFEN IV 800 MG/200 ML 800 MG/200 ML BAG 400 MG IVPB (04:08)
[2019-11-02 04:15] VITALS: BP 118/70; PULSE 98; RESP 16; TEMP 36.8; O2SAT 92
[2019-11-02 04:57] LABS: Glucose Point of Care 77 (65-105)
[2019-11-02 05:19] LABS: Blood Urea Nitrogen 3 mg/dL (9-20); Calcium 7.5 mg/dL (8.4-10.2); Carbon Dioxide 33 mmol/L (22-30); Chloride 104 mmol/L (98-107); Estimated CRCL calculation 94 ml/min; Estimated Glomerular Filt Rate > 60; Glucose 89 mg/dL (75-110); Potassium 2.9 mmol/L (3.4-5.0); Sodium 138 mmol/L (137-145)
[2019-11-02] MEDS: LEVOTHYROXINE SODIUM INJ 100 MCG/5 ML VIAL 50 MCG IV PUSH (05:33)
--- NOTE | 2019-11-02 07:32 | PM.PNGS ---
Progress Note: A&P Assessment and Plan (1) Cholelithiasis with acute on chronic cholecystitis: Code(s): K80.12 - Calculus of gallbladder with acute and chronic cholecystitis without obstruction Status: Acute Assessment and Plan: healing well after laparoscopic cholecystectomy 10/27/2019. Pathology showed acute cholecystitis but there was evidence of chronic cholecystitis at surgery as well. Patient can be discharged from my perspective. He ate better yesterday. His wounds are healing well. The bandage on his BRIANNA drain site can be removed on 11/04/2019 and no dressing replaced. No need for surgical follow-up. He can be followed up by the physician at the nursing facility. (2) Adult failure to thrive: Code(s): R62.7 - Adult failure to thrive Status: Acute Assessment and Plan: Ate better yesterday. (3) Down's syndrome: Code(s): Q90.9 - Down syndrome, unspecified Status: Chronic Subjective Subjective Date/Time Seen: 11/02/19 07:32 much more awake. Wants to get out of bed. Slightly agitated because he can't get up. Review of Systems Review of Systems: ROS unobtainable: Yes unobtainable due to mental status Exam GI: Inspection: non-distended and incision ( All incisions healing well. Dressing dry and intact over BRIANNA drain site.) GI Palp: Yes Soft to palpation and No Tenderness to palpation present (GI) Auscultation: normal bowel sounds Objective Data Vital Signs Vital Signs: Vital Signs - 24 hr 11/01/19 09:24 11/01/19 14:00 11/01/19 23:48 Temperature 37.2 C 36.3 C L Pulse Rate 97 72 93 Respiratory Rate 16 16 16 Blood Pressure 110/50 L 98/70 L Pulse Oximetry 92 94 94 11/02/19 04:15 Temperature 36.8 C Pulse Rate 98 Respiratory Rate 16 Blood Pressure 118/70 Pulse Oximetry 92 Intake/Output Intake/Output: Intake & Output 10/30/19 10/31/19 11/01/19 11/02/19 23:59 23:59 23:59 23:59 Intake Total 1740 1850 4450 536 Output Total 615 6 Balance 1125 1844 4450 536 Meds/Results Medications: Active Medications Generic Name Dose Route Start Last Admin Trade Name Freq PRN Reason Stop Dose Admin Acetaminophen 650 mg 10/19/19 17:42 10/25/19 20:55 Tylenol Tablet PO 650 mg Q4H PRN Administration Mild Pain (1-3) or Fever Hydrocodone Bitart/Acetaminophen 1 tab 10/27/19 12:59 10/31/19 01:41 [place] 5-325 Mg PO 1 tab Q4H PRN Administration Pain Rated 7-10 Alprazolam 0.5 mg 10/24/19 17:00 10/26/19 16:59 Xanax PO Not Given BID BRITTNEY Buspirone HCl 5 mg 10/19/19 21:00 11/01/19 23:41 Buspar PO 5 mg Q12HR BRITTNEY Administration Enoxaparin Sodium 40 mg 10/28/19 09:00 11/01/19 08:40 Lovenox SUB-Q 40 mg DAILY BRITTNEY Administration Fentanyl Citrate 25 mcg 10/27/19 13:25 10/28/19 01:42 Sublimaze IV PUSH 25 mcg Q1H PRN Administration abdominal pain Ibuprofen 800 mg in 200 mls @ 400 mls/hr 10/27/19 12:59 11/02/19 04:38 Caldolor 800 Mg/200 Ml IVPB Infused Q6H PRN Infusion Pain Rated 4-6 Norepinephrine Bitartrate 8 mg in 250 mls @ 0 mls/hr 10/27/19 14:15 10/30/19 08:57 Levophed 8 Mg/D5w 250 Ml IV CONT Not Given .Q0M BRITTNEY Protocol 0 MCG/MIN Lactated Ringer's 1,000 mls @ 75 mls/hr 10/27/19 14:55 11/02/19 04:38 Lr - Lactated Ringers Iv IV CONT 75 mls/hr .[id number] BRITTNEY Infusion Dextrose 1,000 mls @ 50 mls/hr 10/29/19 12:02 Dextrose 10% IV CONT .Q20H PRN if PN is interrupted Ibuprofen 400 mg 10/27/19 12:59 Motrin PO Q6H PRN Pain Rated 1-3 Levothyroxine Sodium 50 mcg 10/28/19 06:30 11/02/19 05:33 Levothyroxine Sodium Inj IV PUSH 50 mcg DAILY@0630 BRITTNEY Administration Lorazepam 0.5 mg 10/26/19 08:02 Ativan Inj IV PUSH Q6H PRN Anxiety Miconazole Nitrate 1 applic 10/22/19 09:00 11/01/19 21:24 Aloe [place] TOPICAL 1 applic Q12HR BRITTNEY Administration Mirtazapine 7.5 mg 10/19/19 21:0
[2019-11-02] MEDS: LORAZEPAM INJ 2 MG/ML VIAL 0.5 MG IV PUSH (08:38)
[2019-11-02] MEDS: PRAVASTATIN SODIUM 20 MG TABLET 60 MG PO (08:47)
[2019-11-02] MEDS: PAROXETINE 20 MG TABLET PO (08:47)
[2019-11-02] MEDS: busPIRone HCL 5 MG TABLET PO ×2 (08:47→20:50)
[2019-11-02] MEDS: FAMOTIDINE 20 MG TABLET PO ×2 (08:48→20:50)
[2019-11-02] MEDS: POTASSIUM CHLORIDE 20 MEQ TABLET.ER 40 MEQ PO (08:48)
[2019-11-02] MEDS: ENOXAPARIN 40 MG/0.4 ML SYRINGE SUB-Q (08:49)
[2019-11-02 10:00] VITALS: BP 94/58; PULSE 85; RESP 18; TEMP 36.9; O2SAT 97
[2019-11-02 12:21] LABS: Glucose Point of Care 101 (65-105)
[2019-11-02 14:00] VITALS: BP 110/48; RESP 20; TEMP 36.5; O2SAT 88
[2019-11-02] MEDS: LACTATED RINGERS 1,000 ML 75 ML IV CONT (14:41)
--- NOTE | 2019-11-02 14:41 | PCSTNOTE ---
The patient treatment was not able to be completed on 11/02/19 due to refusal to consume the diet consistency that has been offered by nursing. Patient's only goal was to increase diet consistency as tolerated however he is refusing all foods and medicines at this time. Will plan to continue treatment per plan of care.
[2019-11-02 15:37] LABS: Calcium 7.3 mg/dL (8.4-10.2); Carbon Dioxide 29 mmol/L (22-30); Chloride 103 mmol/L (98-107); Estimated CRCL calculation 89 ml/min; Estimated Glomerular Filt Rate > 60; Glucose 85 mg/dL (75-110); Potassium 3.3 mmol/L (3.4-5.0); Sodium 137 mmol/L (137-145)
[2019-11-02 16:01] LABS: Blood Urea Nitrogen < 2 mg/dL (9-20)
--- NOTE | 2019-11-02 16:02 | PM.IMPN ---
Progress Note: A&P Assessment and Plan (1) Cholelithiasis: Qualifiers: Biliary obstruction: without biliary obstruction Cholecystitis presence: without cholecystitis Cholelithiasis location: gallbladder Qualified Code(s): K80.20 - Calculus of gallbladder without cholecystitis without obstruction Code(s): K80.20 - Calculus of gallbladder without cholecystitis without obstruction Status: Deleted Assessment and Plan: POD#[address] Pandya Still hypotensive on fluids and vasopressors He remains on IV ceftriazone and flagyl for cholecystitis Pt is on clinimax for nutrition 11/01/19 17:29 11/02/19 16:02 Mr. Jackson is a 59yo male s/p lap chapo POD #4 was transferred to ICU postoperatively due to persistent hypotension. Now out of ICU on on medical floor, patient with down syndrome unable to provide detailed review of symptoms however. Mild Sob and cough, pt is not giving a good history. Cxr recent showed, bilateral pneumonia. repeat chest x-ray on 10/31 did not show significant pneumonia, pt is not a good historian, has a poor appetite, but looks tired. pt has Down syndrome. Patient was seen by surgery team and terms of cholecystectomy patient is clinically have siged off, patient hypokalemia most likely due to poor po intake, I was called later that patient has loose BM nurse suspect patient has c diff, will start patient on vancomycine 125mg PO q6, will monitor and plan (2) Pneumonia: Qualifiers: Laterality: bilateral Lung location: lower lobe of lung Pneumonia type: due to unspecified organism Qualified Code(s): J18.9 - Pneumonia, unspecified organism Code(s): J18.9 - Pneumonia, unspecified organism Status: Ruled-out Assessment and Plan: CT showed possible pneumonia pt is on IV ceftriaxone and flagyl bc is negative. PT still having a active cough will repeat checks x-ray did not show significant pneumonia we have stopped antibiotics (3) Prolonged pt (prothrombin time): Code(s): R79.1 - Abnormal coagulation profile Status: Acute Assessment and Plan: Improved. (4) Gastritis: Qualifiers: Chronicity: unspecified Gastritis bleeding: without bleeding Gastritis type: unspecified gastritis Qualified Code(s): K29.70 - Gastritis, unspecified, without bleeding Code(s): K29.70 - Gastritis, unspecified, without bleeding Status: Acute Assessment and Plan: EGD 10/22/[address] Starr demonstrated mild to moderate diffuse gastritis. Continue protonix. (5) Acute hypokalemia: Code(s): E87.6 - Hypokalemia Status: Acute Assessment and Plan: Continue to watch potassium levels (6) Proctitis: Code(s): K62.89 - Other specified diseases of anus and rectum Status: Resolved Assessment and Plan: And feceal impactation cleared after enema 10/22 documented. (7) Down's syndrome: Code(s): Q90.9 - Down syndrome, unspecified Status: Chronic Assessment and Plan: Maintained on home Remeron (8) C. difficile colitis: Code(s): A04.72 - Enterocolitis due to Clostridium difficile, not specified as recurrent Status: Acute Assessment and Plan: Patient on IV antibiotic now has loose bowel movement nurse suspect patient has a C diff will start the patient vancomycin 125 mg p.o. q.6 and monitor Additional Plan elevated INR--unclear reasons. No signs of liver disease. Will draw again tomorrow since he may have surgery Subjective Date/time seen: 11/02/19 16:02 Mr. Jackson is a 59yo male s/p lap chapo POD #4 was transferred to ICU postoperatively due to persistent hypotension. Now out of ICU on on medical floor, patient with down syndrome unable to provide detailed revie
[2019-11-02] MEDS: VANCOMYCIN ORAL 125 MG/2.5 ML SYRUP PO ×2 (17:06→23:16)
[2019-11-02 17:13] LABS: Glucose Point of Care 81 (65-105)
[2019-11-02 18:00] VITALS: BP 96/58; PULSE 96; RESP 20; TEMP 36.6; O2SAT 95
[2019-11-02 20:32] VITALS: BP 96/55; PULSE 92; RESP 14; TEMP 36.2; O2SAT 97
[2019-11-02] MEDS: SENNA/DOCUSATE SODIUM TABLET 1 TAB PO (20:50)
[2019-11-02] MEDS: MIRTAZAPINE 7.5 MG TABLET PO (20:51)
[2019-11-02 23:34] LABS: Glucose Point of Care 103 (65-105)
[2019-11-03] MEDS: LORAZEPAM INJ 2 MG/ML VIAL 0.5 MG IV PUSH ×2 (01:54→22:45)
[2019-11-03] MEDS: LACTATED RINGERS 1,000 ML 75 ML IV CONT ×2 (04:09→17:44)
[2019-11-03] MEDS: VANCOMYCIN ORAL 125 MG/2.5 ML SYRUP PO ×3 (05:54→17:45)
[2019-11-03] MEDS: LEVOTHYROXINE SODIUM INJ 100 MCG/5 ML VIAL 50 MCG IV PUSH (05:54)
[2019-11-03 06:20] VITALS: BP 107/61; PULSE 83; RESP 16; TEMP 36.6; O2SAT 97
[2019-11-03 06:21] LABS: Glucose Point of Care 78 (65-105)
[2019-11-03 06:43] LABS: Calcium 7.7 mg/dL (8.4-10.2); Carbon Dioxide 34 mmol/L (22-30); Chloride 101 mmol/L (98-107); Estimated CRCL calculation 89 ml/min; Estimated Glomerular Filt Rate > 60; Glucose 83 mg/dL (75-110); Phosphorus 3.6 mg/dL (2.5-4.5); Potassium 3.2 mmol/L (3.4-5.0); Sodium 136 mmol/L (137-145)
[2019-11-03 06:52] LABS: Blood Urea Nitrogen < 2 mg/dL (9-20)
[2019-11-03] MEDS: POTASSIUM CHLORIDE 20 MEQ TABLET.ER 40 MEQ PO (08:15)
[2019-11-03] MEDS: ENOXAPARIN 40 MG/0.4 ML SYRINGE SUB-Q (08:15)
[2019-11-03] MEDS: FAMOTIDINE 20 MG TABLET PO ×2 (08:15→22:43)
[2019-11-03] MEDS: PRAVASTATIN SODIUM 20 MG TABLET 60 MG PO (08:16)
[2019-11-03] MEDS: busPIRone HCL 5 MG TABLET PO ×2 (08:16→22:41)
[2019-11-03] MEDS: TAMSULOSIN HCL 0.4 MG CAPSULE PO (08:16)
[2019-11-03] MEDS: PAROXETINE 20 MG TABLET PO (08:16)
[2019-11-03 08:46] LABS: Hematocrit 27.3 % (42.0-52.0); Mean Corpuscular Hemoglobin 27.7 pg (26-34); Mean Platelet Volume 10.3 fl (7.4-10.4); Platelet Count Result 294 k/mm3 (150-375); Red Blood Count 3.25 M/mm3 (4.6-6.20); Red Cell Distribution Width 19.5 % (11.5-14.5); White Blood Count 3.8 K/mm3 (4.5-10.0)
[2019-11-03 11:42] LABS: Glucose Point of Care 100 (65-105)
[2019-11-03 14:00] VITALS: BP 105/68; PULSE 72; RESP 16; TEMP 36.7; O2SAT 93
[2019-11-03 14:03] VITALS: O2SAT 93
[2019-11-03 14:48] LABS: Calcium 7.6 mg/dL (8.4-10.2); Carbon Dioxide 32 mmol/L (22-30); Chloride 103 mmol/L (98-107); Estimated CRCL calculation 89 ml/min; Estimated Glomerular Filt Rate > 60; Glucose 93 mg/dL (75-110); Potassium 3.9 mmol/L (3.4-5.0); Sodium 136 mmol/L (137-145)
[2019-11-03 15:09] LABS: Blood Urea Nitrogen < 2 mg/dL (9-20)
--- NOTE | 2019-11-03 15:49 | PCSTNOTE ---
The patient treatment was not able to be completed on 11/03/19] due to being asleep. Nursing reported that patient did increase oral intake but is back to refusing oral presentations. Will plan to continue treatment per plan of care. Therapy goal is to upgrade diet however patient's overall intake remains poor.
[2019-11-03 16:57] LABS: Glucose Point of Care 89 (65-105)
--- NOTE | 2019-11-03 17:34 | PM.IMPN ---
Progress Note: A&P Assessment and Plan (1) Cholelithiasis: Qualifiers: Cholelithiasis location: gallbladder Cholecystitis presence: without cholecystitis Biliary obstruction: without biliary obstruction Qualified Code(s): K80.20 - Calculus of gallbladder without cholecystitis without obstruction Code(s): K80.20 - Calculus of gallbladder without cholecystitis without obstruction Status: Deleted Assessment and Plan: POD#[address] Pandya Still hypotensive on fluids and vasopressors He remains on IV ceftriazone and flagyl for cholecystitis Pt is on clinimax for nutrition 11/01/19 17:29 11/03/19 17:34 Mr. Jackson is a 59yo male s/p lap chapo POD #4 was transferred to ICU postoperatively due to persistent hypotension. Now out of ICU on on medical floor, patient with down syndrome unable to provide detailed review of symptoms however. Mild Sob and cough, pt is not giving a good history. Cxr recent showed, bilateral pneumonia. repeat chest x-ray on 10/31 did not show significant pneumonia, pt is not a good historian, has a poor appetite, but looks tired. pt has Down syndrome. Patient was seen by surgery team and terms of cholecystectomy patient is clinically have siged off, patient hypokalemia most likely due to poor po intake, I was called later that patient has loose BM nurse suspect patient has c diff, will start patient on vancomycine 125mg PO q6, patient is clinically stable will monitor and plan (2) Pneumonia: Qualifiers: Pneumonia type: due to unspecified organism Laterality: bilateral Lung location: lower lobe of lung Qualified Code(s): J18.9 - Pneumonia, unspecified organism Code(s): J18.9 - Pneumonia, unspecified organism Status: Ruled-out Assessment and Plan: CT showed possible pneumonia pt is on IV ceftriaxone and flagyl bc is negative. PT still having a active cough will repeat checks x-ray did not show significant pneumonia we have stopped antibiotics (3) Prolonged pt (prothrombin time): Code(s): R79.1 - Abnormal coagulation profile Status: Acute Assessment and Plan: Improved. (4) Gastritis: Qualifiers: Gastritis type: unspecified gastritis Chronicity: unspecified Gastritis bleeding: without bleeding Qualified Code(s): K29.70 - Gastritis, unspecified, without bleeding Code(s): K29.70 - Gastritis, unspecified, without bleeding Status: Acute Assessment and Plan: EGD 10/22/[address] Starr demonstrated mild to moderate diffuse gastritis. Continue protonix. (5) Acute hypokalemia: Code(s): E87.6 - Hypokalemia Status: Acute Assessment and Plan: Continue to watch potassium levels (6) Proctitis: Code(s): K62.89 - Other specified diseases of anus and rectum Status: Resolved Assessment and Plan: And feceal impactation cleared after enema 10/22 documented. (7) Down's syndrome: Code(s): Q90.9 - Down syndrome, unspecified Status: Chronic Assessment and Plan: Maintained on home Remeron (8) C. difficile colitis: Code(s): A04.72 - Enterocolitis due to Clostridium difficile, not specified as recurrent Status: Acute Assessment and Plan: Patient was on IV antibiotic now has loose bowel movement nurse suspect patient has a C diff will start the patient vancomycin 125 mg p.o. q.6 and monitor Subjective Date/time seen: 11/03/19 17:34 Mr. Jackson is a 59yo male s/p lap chapo POD #4 was transferred to ICU postoperatively due to persistent hypotension. Now out of ICU on on medical floor, patient with down syndrome unable to provide detailed review of symptoms however. Mild Sob and cough, pt is not giving a good history. Cxr recent showed,
[2019-11-03 19:58] VITALS: O2SAT 95
[2019-11-03] MEDS: MIRTAZAPINE 7.5 MG TABLET PO (22:42)
[2019-11-04] MEDS: VANCOMYCIN ORAL 125 MG/2.5 ML SYRUP PO ×3 (01:06→12:29)
[2019-11-04] MEDS: LEVOTHYROXINE SODIUM INJ 100 MCG/5 ML VIAL 50 MCG IV PUSH (05:30)
[2019-11-04 05:56] LABS: Glucose Point of Care 101 (65-105)
[2019-11-04 06:00] VITALS: BP 101/78; PULSE 86; RESP 19; TEMP 36.6; O2SAT 98
[2019-11-04 06:24] LABS: Alanine Aminotransferase 14 U/L (4-50); Albumin Level 2.6 g/dL (3.5-5.1); Alkaline Phosphatase 92 U/L (38-126); Aspartate Amino Transferase 27 U/L (17-59); Bilirubin,Total 0.2 mg/dL (0.2-1.3); Calcium 7.9 mg/dL (8.4-10.2); Carbon Dioxide 32 mmol/L (22-30); Chloride 101 mmol/L (98-107); Estimated CRCL calculation 89 ml/min; Estimated Glomerular Filt Rate > 60; Glucose 104 mg/dL (75-110); Magnesium 1.8 mg/dL (1.6-2.3); Phosphorus 2.9 mg/dL (2.5-4.5); Potassium 3.3 mmol/L (3.4-5.0); Sodium 137 mmol/L (137-145)
[2019-11-04 06:47] LABS: Blood Urea Nitrogen < 2 mg/dL (9-20)
[2019-11-04 10:00] VITALS: BP 108/60; PULSE 72; RESP 14; TEMP 36.8; O2SAT 90
[2019-11-04] MEDS: LORAZEPAM INJ 2 MG/ML VIAL 0.5 MG IV PUSH (10:36)
[2019-11-04] MEDS: busPIRone HCL 5 MG TABLET PO (10:45)
[2019-11-04] MEDS: PAROXETINE 20 MG TABLET PO (10:45)
--- NOTE | 2019-11-04 12:22 | PM.DS ---
DS: Diagnosis Admitting Diagnosis Admitting Diagnosis: Acute kidney failure, unspecified Discharge Diagnosis (1) Cholelithiasis: Qualifiers: Cholelithiasis location: gallbladder Cholecystitis presence: without cholecystitis Biliary obstruction: without biliary obstruction Qualified Code(s): K80.20 - Calculus of gallbladder without cholecystitis without obstruction Code(s): K80.20 - Calculus of gallbladder without cholecystitis without obstruction Status: Deleted Assessment and Plan: POD#[address] Pandya Still hypotensive on fluids and vasopressors He remains on IV ceftriazone and flagyl for cholecystitis Pt is on clinimax for nutrition 11/01/19 17:29 11/03/19 17:34 Mr. Jackson is a 59yo male s/p lap chapo POD #4 was transferred to ICU postoperatively due to persistent hypotension. Now out of ICU on on medical floor, patient with down syndrome unable to provide detailed review of symptoms however. Mild Sob and cough, pt is not giving a good history. Cxr recent showed, bilateral pneumonia. repeat chest x-ray on 10/31 did not show significant pneumonia, pt is not a good historian, has a poor appetite, but looks tired. pt has Down syndrome. Patient was seen by surgery team and terms of cholecystectomy patient is clinically have siged off, patient hypokalemia most likely due to poor po intake, I was called later that patient has loose BM nurse suspect patient has c diff, will start patient on vancomycine 125mg PO q6, patient is clinically stable will monitor and plan (2) Pneumonia: Qualifiers: Pneumonia type: due to unspecified organism Laterality: bilateral Lung location: lower lobe of lung Qualified Code(s): J18.9 - Pneumonia, unspecified organism Code(s): J18.9 - Pneumonia, unspecified organism Status: Ruled-out Assessment and Plan: CT showed possible pneumonia pt is on IV ceftriaxone and flagyl bc is negative. PT still having a active cough will repeat checks x-ray did not show significant pneumonia we have stopped antibiotics (3) Prolonged pt (prothrombin time): Code(s): R79.1 - Abnormal coagulation profile Status: Acute Assessment and Plan: Improved. (4) Gastritis: Qualifiers: Gastritis type: unspecified gastritis Chronicity: unspecified Gastritis bleeding: without bleeding Qualified Code(s): K29.70 - Gastritis, unspecified, without bleeding Code(s): K29.70 - Gastritis, unspecified, without bleeding Status: Acute Assessment and Plan: EGD 10/22/[address] Starr demonstrated mild to moderate diffuse gastritis. Continue protonix. (5) Acute hypokalemia: Code(s): E87.6 - Hypokalemia Status: Acute Assessment and Plan: Continue to watch potassium levels (6) Proctitis: Code(s): K62.89 - Other specified diseases of anus and rectum Status: Resolved Assessment and Plan: And feceal impactation cleared after enema 10/22 documented. (7) Down's syndrome: Code(s): Q90.9 - Down syndrome, unspecified Status: Chronic Assessment and Plan: Maintained on home Remeron (8) C. difficile colitis: Code(s): A04.72 - Enterocolitis due to Clostridium difficile, not specified as recurrent Status: Acute Assessment and Plan: Patient was on IV antibiotic now has loose bowel movement nurse suspect patient has a C diff will start the patient vancomycin 125 mg p.o. q.6 and monitor DS: Summary Hospital Course Reason for hospitalization: Lino Jackson is a 59 year old male who comes from a care center at [facility]. He is mentally challenged. Typically the family visit him and feed him but they have not been allowed to the facility for the last coupl
== END 2019-11-04 16:10 | DRG 418 ==
LOC: ANHED 17:45 → ANH2MED 18:14 → ANH3MED 11-01 22:29 → ANH2MED 11-05 14:58 → ANH3MED 11-05 14:58 → ANHICU 11-05 14:58
PROVIDERS: Family Medicine; Internal Medicine; Internal Medicine Critical Care Medicine; Internal Medicine Gastroenterology; Internal Medicine Hematology & Oncology; Nurse Practitioner; Physician Assistant; Surgery; Admitting Provider Family Medicine; Emergency Provider Emergency Medicine; Visit Provider Physician Assistant
PROC: 0DJ08ZZ Inspection of Upper Intestinal Tract, Via Natural or Artificial Opening Endoscopic (ICD-10-PCS; CPT 43235; principal; 2019-10-22 12:00)
PROC: 0FT44ZZ Resection of Gallbladder, Percutaneous Endoscopic Approach (ICD-10-PCS; CPT 47562; principal; 2019-10-27 09:00)
DX: K80.12 Calculus of gallbladder with acute and chronic cholecystitis without obstruction (principal); N17.9 Acute kidney failure, unspecified; E46 Unspecified protein-calorie malnutrition; E87.0 Hyperosmolality and hypernatremia; A04.72 Enterocolitis due to Clostridium difficile, not specified as recurrent; K80.11 Calculus of gallbladder with chronic cholecystitis with obstruction; E86.0 Dehydration; E87.6 Hypokalemia; R62.7 Adult failure to thrive; Z68.20 Body mass index [BMI] 20.0-20.9, adult; I95.81 Postprocedural hypotension; F79 Unspecified intellectual disabilities; T81.82XA Emphysema (subcutaneous) resulting from a procedure, initial encounter; Q90.9 Down syndrome, unspecified; E03.9 Hypothyroidism, unspecified; K62.89 Other specified diseases of anus and rectum; K56.41 Fecal impaction; K44.9 Diaphragmatic hernia without obstruction or gangrene; K29.70 Gastritis, unspecified, without bleeding; R79.1 Abnormal coagulation profile; F03.90 Unspecified dementia, unspecified severity, without behavioral disturbance, psychotic disturbance, mood disturbance, and anxiety; E78.00 Pure hypercholesterolemia, unspecified; K21.0 Gastro-esophageal reflux disease with esophagitis; F41.9 Anxiety disorder, unspecified; M10.9 Gout, unspecified
CPT/HCPCS: 36415; 36600; 51701; 70450; 71045; 71046; 74019; 74176; 76705; 78227; 80048; 80053; 80076; 81001; 82375; 82533; 82607; 82728; 82746; 82805; 83050; 83540; 83550; 83605; 83735; 83880; 84100; 84132; 84295; 84443; 84466; 85025; 85027; 85384; 85610; 85670; 85730; 86140; 86850; 86900; 86901; 87040; 87081; 87804; 88304; 88305; 92610; 93005; 96360; 96361; 97161; 97165; 99285; A9270; A9537; C1713; C9113; J0131; J0171; J0610; J0696; J1100; J1650; J1741; J1956; J2060; J2250; J2270; J2370; J2405; J2704; J2710; J3010; J3475; J3480; J7030; J7040; J7050; J7120; P9047

== ENCOUNTER 2019-11-13 21:01 | Inpatient (IN) | payer MEDICARE, SELFPAY ==
--- NOTE | ~2019-11-13 | XR_ITS ---
EXAMINATION: XR chest 1V portable DATE: 11/16/2019 05:56 INDICATION: Bilateral diffuse pulmonary infiltrates. Pneumonia. TECHNIQUE: frontal view of the chest was obtained. COMPARISON: Chest radiograph dated 11/15/2019 FINDINGS: Gradient of hazy airspace opacity throughout the right mid to lower lung zone with more dense consoli dation at the right lower lung zone. There are also left perihilar opacities as well as retrocardiac consolidation in the left lower lung zone. This is due in part to small left and oeozd-zy-cucgjkaz ri ght pleural effusions with catheter at the bilateral apices. No pneumothorax. Cardiomediastinal silho uette is normal. Right internal jugular central venous catheter with distal tip at the caudal superio r vena cava. IMPRESSION: 1. No significant change in small left and bhpcx-rr-abfootim right pleural effusions. 2. Dense consolidation in the bilateral lower lung zones which could represent atelectasis and/or pne umonia. Reviewed, dictated and finalized at location A. IMPRESSION: 1. No significant change in small left and zqqcm-yg-odtuixrn right pleural effu sions. 2. Dense consolidation in the bilateral lower lung zones which could represent atelectasis and/or pneumonia.
--- NOTE | ~2019-11-13 | XR_ITS ---
XR chest 1V portable 11/15/2019 08:21 Indication: Pneumonia. Procedure: AP portable chest Comparison: Comparison to multiple prior studies sequentially, with oldest reviewed study dated 10/28. Findings: There is diffuse bilateral airspace disease, compatible with pneumonia. Bilateral pleural e ffusions, right greater than left. Right IJ central venous catheter tip near the cavoatrial junction. No pneumothorax. Impression: 1: Diffuse bilateral airspace disease, compatible with pneumonia. Pneumonia and ARDS are less favored . 2: Bilateral pleural effusions, right greater than left. Reviewed, dictated and finalized at location A. Impression: 1: Diffuse bilateral airspace disease, compatible with pneumonia. Pneumonia and ARDS are less favored. 2: Bilateral pleural effusions, right greater than left.
--- NOTE | ~2019-11-13 | XR_ITS ---
EXAMINATION: XR chest 1V portable DATE: 11/13/2019 22:31 INDICATION: Hypoxia. Fever. Cough. TECHNIQUE: A single frontal view of the chest was obtained. COMPARISON: Chest 2 views 11/01/2019, CT abdomen and pelvis 10/21/2019 FINDINGS: The patient is rotated to his right. There is mild scarring at the lung apices. There are a irspace and interstitial opacities in the lower lung zones, right worse than left. No pleural effusio n or pneumothorax. The heart size is normal. Surgical clips in the right upper quadrant are likely fr om cholecystectomy. IMPRESSION: 1. Airspace and interstitial opacities in the lower lung zones, consistent with pulmonary edema versu s pneumonia. Reviewed, dictated and finalized at location A. IMPRESSION: 1. Airspace and interstitial opacities in the lower lung zones, consistent with pulmonary edema versus pneumonia.
--- NOTE | ~2019-11-13 | XR_ITS ---
EXAMINATION: XR abdomen NG/feed tube insert INDICATION: Nasogastric tube insertion TECHNIQUE: Portable AP KUB-NG at 1235 hours COMPARISON: 10/23/2019 FINDINGS: The nasogastric tube ends in the stomach. There is diffuse lung disease. Small left and sma ll to moderate-sized right pleural effusions are unchanged. The bowel gas pattern is nonspecific. Rigoberto gical clips in the right upper quadrant are likely from prior cholecystectomy. A right internal jugul ar catheter ends with its tip in the distal superior vena cava. IMPRESSION: 1. Nasogastric tube in the stomach. Reviewed, dictated and finalized at location B.
--- NOTE | ~2019-11-13 | XR_ITS ---
EXAMINATION: XR abdomen NG/feed tube rechec EXAM DATE: 11/17/2019 22:49 INDICATION: Recheck feeding tube. TECHNIQUE: Frontal projection(s) of the abdomen for interpretation. Comparison is made to prior exami nation from 11/16/2019. FINDINGS: Feeding tube tip is in position. There are cholecystectomy clips. There is basilar airspac e disease and bilateral pleural effusions. Nonobstructive upper abdominal bowel gas pattern. IMPRESSION: Feeding tube in position. Reviewed, dictated and finalized at location A. IMPRESSION: Feeding tube in position.
--- NOTE | ~2019-11-13 | XR_ITS ---
EXAMINATION: XR chest 1V portable DATE: 11/17/2019 05:23 INDICATION: Bilateral diffuse infiltrates. TECHNIQUE: A single frontal view of the chest was obtained. COMPARISON: Chest single view 11/16/2019 FINDINGS: The patient is rotated to his right. There are airspace opacities in the perihilar regions and at the lung bases. There are moderate-sized right and small left pleural effusions. No pneumothor ax. The heart size is normal. The nasogastric tube tip is in the stomach. A right internal jugular ce ntral venous catheter is seen with tip in the right atrium. Surgical clips in the right upper quadran t are likely from cholecystectomy. IMPRESSION: 1. Airspace opacities in the perihilar regions and at the lung bases with interval improvement on the right and at left lung base and interval worsening at left perihilar region, consistent with pulmona ry edema versus pneumonia. 2. Stable moderate-sized right and small left pleural effusions. Reviewed, dictated and finalized at location A. IMPRESSION: 1. Airspace opacities in the perihilar regions and at the lung bases with inter jeanette improvement on the right and at left lung base and interval worsening at le ft perihilar region, consistent with pulmonary edema versus pneumonia. 2. Stable moderate-sized right and small left pleural effusions.
--- NOTE | ~2019-11-13 | XR_ITS ---
EXAMINATION: XR chest 1V portable DATE: 11/18/2019 05:44 INDICATION: Bilateral diffuse infiltrates. TECHNIQUE: A single frontal view of the chest was obtained. COMPARISON: Chest single view 11/17/2019, CT abdomen and pelvis 10/21/2019 FINDINGS: There are airspace opacities in the perihilar regions and at the lung bases. There are mode rate-sized right and small left pleural effusions. No pneumothorax. The heart size is normal. The mehdi ogastric tube tip is in the stomach. A right internal jugular central venous catheter is seen with ti p in the right atrium. There are surgical clips in right abdomen. IMPRESSION: 1. Airspace opacities in the perihilar regions and at the lung bases with interval worsening in right perihilar region, consistent with pneumonia. 2. Stable moderate-sized right and small left pleural effusions. Reviewed, dictated and finalized at location A. IMPRESSION: 1. Airspace opacities in the perihilar regions and at the lung bases with inter jeanette worsening in right perihilar region, consistent with pneumonia. 2. Stable moderate-sized right and small left pleural effusions.
--- NOTE | ~2019-11-13 | XR_ITS ---
EXAMINATION: XR chest port-a-cath/central DATE: 11/14/2019 11:43 INDICATION: Central line placement. TECHNIQUE: A single frontal view of the chest was obtained on 2 radiographs. COMPARISON: Chest single view 11/13/2019 FINDINGS: There are airspace opacities in the mid and lower lung zones, right worse than left. No ple ural effusion or pneumothorax. The heart size is normal. A right internal jugular central venous cath eter is seen with tip at the superior cavoatrial junction. IMPRESSION: 1. Central line tip at superior cavoatrial junction. 2. Worsened airspace opacities in the mid and lower lung zones, consistent with pulmonary edema versu s pneumonia. Reviewed, dictated and finalized at location A. IMPRESSION: 1. Central line tip at superior cavoatrial junction. 2. Worsened airspace opacities in the mid and lower lung zones, consistent with pulmonary edema versus pneumonia.
--- NOTE | ~2019-11-13 | XR_ITS ---
EXAMINATION: XR chest 1V portable DATE: 11/19/2019 05:50 INDICATION: Bilateral diffuse infiltrates. TECHNIQUE: A single frontal view of the chest was obtained. COMPARISON: Chest single view 11/18/2019 FINDINGS: There are airspace opacities in the perihilar regions and lower lung zones. There are moder ate-sized right and small left pleural effusions. No pneumothorax. The heart size is normal. The naso gastric tube tip is in the stomach. A right internal jugular central venous catheter is seen with tip at superior cavoatrial junction. Surgical clips in the right upper quadrant are likely from cholecys tectomy. IMPRESSION: 1. Stable airspace opacities in the perihilar regions and lower lung zones, consistent with pneumonia . 2. Stable moderate-sized right and small left pleural effusions. Reviewed, dictated and finalized at location A. IMPRESSION: 1. Stable airspace opacities in the perihilar regions and lower lung zones, con sistent with pneumonia. 2. Stable moderate-sized right and small left pleural effusions.
--- NOTE | ~2019-11-13 | XR_ITS ---
EXAMINATION: XR chest 1V portable EXAM DATE: 11/17/2019 22:49 INDICATION: Pneumonia. Possible aspiration. TECHNIQUE: Portable AP frontal chest x-ray was obtained. Comparison is made to prior examination from earlier same date. FINDINGS: There is a nasogastric tube seen with tip collimated off the study, but below the left ben diaphragm. There is a right IJ venous line. There is large amount of left mid and lower lung zone, sm aller amount of right basilar acute airspace disease most likely acute infectious process, clinical c orrelation. Small to moderate right, small pleural effusions. Cardiomediastinal silhouette is normal. There is no pneumothorax suspected. There are bony degenerative changes. Accounting for differences in technique, there is no significant interval change. IMPRESSION: 1. Left mid and lower lung zone, right basilar acute airspace disease likely acute infectious proce ss. 2. Small to moderate right, small pleural effusions. Reviewed, dictated and finalized at location A. IMPRESSION: 1. Left mid and lower lung zone, right basilar acute airspace disease likely acute infectious process. 2. Small to moderate right, small pleural effusions.
[2019-11-13 21:15] VITALS: BP 91/65; PULSE 132; RESP 30; TEMP 38.8; O2SAT 85
[2019-11-13 21:29] VITALS: BP 91/65; PULSE 127; RESP 25; O2SAT 87
--- NOTE | 2019-11-13 21:39 | PC.NURSE ---
Covid 19 state swab collected and sent to lab
[2019-11-13 21:42] LABS: Basophils Absolute Auto 0.1 K/mm3 (0.0-0.1); Basophils Percent Auto 0.8 % (0.2-1.2); Hematocrit 36.6 % (42.0-52.0); Hemoglobin 11.8 g/dL (14.0-18.0); Immature Granulocyte Percent A 0.6 % (0-0.5); Lymphocytes Absolute Auto 0.38 K/mm3 (0.9-3.2); Lymphocytes Percent Auto 2.3 % (18.3-44.2); Mean Corpuscular HGB Conc 32.2 g/dl (32-36); Mean Corpuscular Hemoglobin 27.7 pg (26-34); Mean Corpuscular Volume 85.9 fl (80-100); Monocytes Absolute Auto 0.4 K/mm3 (0.1-0.6); Monocytes Percent Auto 2.3 % (2.6-8.5); Neutrophils Absolute Auto 15.6 K/mm3 (1.3-6.7); Red Blood Count 4.26 M/mm3 (4.6-6.20); Red Cell Distribution Width 21.9 % (11.5-14.5); White Blood Count 16.6 K/mm3 (4.5-10.0)
[2019-11-13 21:47] LABS: INR 1.4; Partial Thromboplastin Time 34.5 SECONDS (22.3-36.8); Prothrombin Time 17.1 Seconds (11.1-14.7)
[2019-11-13 21:49] LABS: Lactic Acid Reflex 3.1 mmol/L (0.7-2.1)
[2019-11-13 21:55] LABS: Ovalocytes 1+ (NORMAL); Platelet Clumps Present; Platelet Estimate Adequate (Adequate); Target Cells 1+ (NORMAL)
--- NOTE | 2019-11-13 21:57 | PCRCNOTE ---
ABG DELAYED PER DR HOLDNE REQUEST DUE TO PT AGITATION
[2019-11-13] MEDS: SODIUM CHLORIDE 0.9% IV 1,000 ML 999 ML IV CONT ×2 (22:04→23:34)
[2019-11-13 22:14] LABS: Alanine Aminotransferase 13 U/L (4-50); Albumin Level 3.4 g/dL (3.5-5.1); Alkaline Phosphatase 114 U/L (38-126); Aspartate Amino Transferase 29 U/L (17-59); Bilirubin,Total 0.4 mg/dL (0.2-1.3); Blood Urea Nitrogen 50 mg/dL (9-20); CRP > 9.0 mg/dL (<1.0); Calcium 8.7 mg/dL (8.4-10.2); Carbon Dioxide 30 mmol/L (22-30); Chloride 105 mmol/L (98-107); Estimated Glomerular Filt Rate 31; Glucose 117 mg/dL (75-110); Potassium 3.2 mmol/L (3.4-5.0); Sodium 146 mmol/L (137-145)
[2019-11-13 22:19] LABS: Add Urine Microscopic? YES; Amorphous Sediment Urine Few; Appearance Urine Cloudy (Clear); Bacteria Urine Trace /hpf; Bilirubin Urine Negative (Negative); Blood Urine 1+ (Negative); Color Urine Yellow (Yellow); Glucose Urine UA Negative (Negative); Hyaline Casts Urine 30-49 /lpf; Ketones Urine Negative (Negative); Leukocyte Esterase Ur Negative LEU/UL (Negative); Mucus Urine Few /lpf; Nitrate Urine Negative (Negative); Protein Urine 2+ mg/dL (Negative); Squamous Epithelial Cell Urine Rare /hpf (Few); Urobilinogen Urine Negative mg/dL (<2.0)
[2019-11-13 22:20] VITALS: BP 124/44; PULSE 117; RESP 35; O2SAT 95
[2019-11-13 23:04] LABS: Alveolar/Arterial O2 Gradient 145.2 mmHg; Base Excess ABG 3.1 mEq/l (+/-2.0); Carboxyhemoglobin 0.3 % THb (0-2.0); Fractional Inspired Oxygen 36 %; Methemoglobin ABG 0.5 %THb (0-1.5); Oxygen Content ABG 12.5 %vol (16.0-22.0); Oxyhemoglobin 83.8 % THb (90.0-100.0); PCO2 ABG 44.2 mmHg (35.0-45.0); PO2 ABG 53.1 mmHg (80.0-100.0); PO2 FiO2 Ratio Arterial Blood 1.47 %; Reduced Hemoglobin 15.4 %THb (0-5.0); Total Hemoglobin 10.6 g/dL (12.0-18.0); pH ABG 7.419 (7.350-7.450)
[2019-11-13 23:05] LABS: Device NASAL CANNULA; Site Drawn LEFT FEMORAL
--- NOTE | 2019-11-13 23:08 | ED.GENADULT ---
HPI - General Adult General Chief complaint: Upper Respiratory Infection Stated complaint: hypoxia Time Seen by Provider: 11/13/19 21:04 Source: family and EMS Mode of arrival: EMS Limitations: other (congnitive deficit, Down syndrom) History of Present Illness HPI narrative: This patient is 59 yo male with h/o recent pneumonia, Down syndrome who presents from [facility] for evaluation of low oxygen saturation. Patient has Down syndrome and he is unable to given any history . His mother is at bedside and she states she was told that patient was near tonight. She states he has not been eating or drinking much since dishcharge from [facility] 11/04/19. She states they have not mention that he was having fever, diarrhea or vomiting. Patient was recently hospitalized for bilateral pneumonia. Related Data Home Medications Medication Instructions Recorded Confirmed alprazolam [Xanax] 0.5 mg PO Q8H 10/19/19 10/19/19 buspirone 5 mg PO BID 10/19/19 10/19/19 famotidine [Pepcid] 20 mg PO DAILY 10/19/19 10/19/19 levothyroxine 100 mcg PO DAILY 10/19/19 10/19/19 mirtazapine [Remeron] 7.5 mg PO HS 10/19/19 10/19/19 paroxetine HCl [Paxil] 20 mg PO QAM 10/19/19 10/19/19 pravastatin 60 mg PO DAILY 10/19/19 10/19/19 Allergies Allergy/AdvReac Type Severity Reaction Status Date / Time erythromycin base Allergy Unknown Verified 10/22/19 10:28 Penicillins Allergy Unknown Verified 10/22/19 10:28 Review of Systems Review of Systems: ROS unobtainable: Yes unobtainable due to medical condition and unobtainable due to mental status [facility] Past Medical History Medical History Abnormal CT scan, esophagus Anxiety Back pain Dementia Down's syndrome Gout History of gastroesophageal reflux (GERD) History of hypercholesterolemia Hypothyroidism Pneumonia Surgical History Surgical History H/O inguinal hernia repair History of tonsillectomy Social History Social History Social History: He comes from [facility]. Smoking status: Never smoker Alcohol intake: never Substance use: never Gender identity (if verbalized by the patient): Male Spiritual care concerns: No Agree to blood products: Yes Exam Const: General: alert (moving all extremity and moaning. ) and ill appearing chronically; No diaphoretic HENMT: Head: atraumatic Mouth: Yes dry mucous membranes and Yes lip abnormal Teeth and gingiva: abnormal tooth and associated gingiva Eyes: Pupils: Equal, round and reactive pupils present EOM: EOMs intact bilaterally Chest: Chest palpation & inspection: normal inspection of the chest Resp: Effort & Inspection: normal respiratory effort and no use of accessory muscles Auscultation: rhonchi lower bilaterally Cardio: Rate: tachycardic Rhythm: regular rhythm GI: GI Palp: Yes Soft to palpation and No Tenderness to palpation present (GI) (patient is not moaning or grimmacing with palpation) Skin: General skin exam: dry skin Neuro: General: moves all extremities Extrem: General: no pedal edema Psych: Other: patient extremely agitated Course Course Emergency Course: Patient presented with hypoxia but in no respiratory distress. Today he was found to be in septic shock. I Discussed with his mother he is in critical condition. I discussed code status and intervention. She agrees patient is DNR but she states that if patient needs intubation she is okay with it and if he needs central venous line she is agreeable. She wants us to to anything we can. Patient is quite agitated. He was started on antibiotics to for HCAP. I attempted left femoral central venous line due to patient not able to follow commands and agitated. I attempted with nursing staff having to hold patient. I was unable to get due to mirna
--- NOTE | 2019-11-13 23:13 | PCRCNOTE ---
ABG DRAWN FROM LEFT FEMORAL ARTERY PER DR HOLDEN
[2019-11-13 23:26] VITALS: BP 72/47; PULSE 104; RESP 20; O2SAT 90
[2019-11-13 23:38] VITALS: BP 107/89; PULSE 104; RESP 22; O2SAT 96
[2019-11-14] VITALS (14 sets, daily range): BP systolic 64–132; BP diastolic 43–116; PULSE 83–127; RESP 14–33; TEMP 36.7–38.7; O2SAT 78–99
[2019-11-14] MEDS: NOREPINEPHRINE 8 MG/D5W 250 ML 8 MG/250 ML BAG 9.4 MG IV CONT (00:30)
[2019-11-14 00:35] LABS: Reflex Lactic Acid Yes or No Add Lactic
--- NOTE | 2019-11-14 01:16 | PM.IMHP ---
H&P: HPI History of Present Illness Chief complaint: Acute Respitory Failure with Hypoxia, Sepsis Narrative: This is a 59 year old male who is known to have Down syndrome and recently admitted to our hospital and discharged about 10 days ago when he was treated for pneumonia and cholelithiasis. The patient was sent back to the hospital tonight from [facility] after he was found to have low oxygen saturations. Apparently the patient has not been eating or drinking since his last discharge. The patient was found to be in septic shock tonight in the ER. Source of sepsis tongiht again appears to be pulmonary. The patient cannot contribute any history given his mental status. ER provider alerted me that his mother stated she wanted everything done including intubation if necessary but no CPR. The patient had tested negative for Covid-19 during his last hospitalization. Central line was attempted in the ER but unsuccessful as the patient was not cooperative. Review of Systems Review of Systems: ROS unobtainable: Yes unobtainable due to mental status PMFSH Past Medical History Medical History Abnormal CT scan, esophagus Anxiety Back pain Dementia Down's syndrome Gout History of gastroesophageal reflux (GERD) History of hypercholesterolemia Hypothyroidism Pneumonia Surgical History Surgical History H/O inguinal hernia repair History of tonsillectomy Family History Family History Unknown Family history unknown Social History Social History Social History: He comes from [facility]. Smoking status: Never smoker Alcohol intake: never Substance use: never Gender identity (if verbalized by the patient): Male Spiritual care concerns: No Agree to blood products: No Meds Home Medications and Allergies Home Medications Medication Instructions Recorded Confirmed Type alprazolam [Xanax] 0.5 mg PO BID 10/19/19 11/14/19 History buspirone 5 mg PO BID 10/19/19 11/14/19 History famotidine [Pepcid] 20 mg PO DAILY 10/19/19 11/14/19 History levothyroxine 100 mcg PO DAILY 10/19/19 11/14/19 History mirtazapine [Remeron] 7.5 mg PO HS 10/19/19 11/14/19 History paroxetine HCl [Paxil] 20 mg PO QAM 10/19/19 11/14/19 History pravastatin 60 mg PO DAILY 10/19/19 11/14/19 History vancomycin 125 mg PO Q6HR #36 ea 11/04/19 11/14/19 Rx Allergies Allergy/AdvReac Type Severity Reaction Status Date / Time erythromycin base Allergy Unknown Verified 11/14/19 03:02 Penicillins Allergy Unknown Verified 11/14/19 03:02 Vital Signs Vital Signs - 24 hr 11/13/19 21:15 11/13/19 21:29 11/13/19 22:20 Temperature 38.8 C H Pulse Rate 132 H 127 H 117 H Respiratory Rate 30 H 25 H 35 H Blood Pressure 91/65 L 91/65 L 124/44 L Pulse Oximetry 85 L 87 L 95 11/13/19 23:26 11/13/19 23:38 11/14/19 00:39 Temperature Pulse Rate 104 H 104 H 99 Respiratory Rate 20 22 H 20 Blood Pressure 72/47 L 107/89 81/50 L Pulse Oximetry 90 96 94 Exam Const: General: awake and ill appearing chronically Nutritional Appearance: thin and underweight Orientation/consciousness: No oriented to person, No oriented to place, No oriented to time and Other orientation findings (Down Syndrome patient) HENMT: Head: normal to inspection General nose exam: Normal external nose present Face and sinus: normal facial exam Eyes: Pupils: Equal, round and reactive pupils present EOM: EOMs intact bilaterally Neck: Neck: supple and no JVD Thyroid: thyroid normal Lymphatic: lymphadenopathy not noted Resp: Effort & Inspection: tachypneic Auscultation: other (Coarse breath sounds b/l++ ) Cardio: Rate: tachycardic Rhythm: regular rhythm Heart sounds: no murmurs GI: Inspection: normal to inspection Auscultation
[2019-11-14 01:55] LABS: Hematocrit 31.9 % (42.0-52.0); Hemoglobin 10.2 g/dL (14.0-18.0); Mean Corpuscular Hemoglobin 27.9 pg (26-34); Mean Corpuscular Volume 87.2 fl (80-100); Mean Platelet Volume 10.6 fl (7.4-10.4); Platelet Count Result 188 k/mm3 (150-375); Red Blood Count 3.66 M/mm3 (4.6-6.20); White Blood Count 19.7 K/mm3 (4.5-10.0)
[2019-11-14] MEDS: LACTATED RINGERS 1,000 ML 125 ML IV CONT ×2 (02:18→10:25)
[2019-11-14 02:22] LABS: Band Neutrophils Percent 16 % (0-6); Lymphocytes Absolute Manual 0.78 K/mm3 (1.1-4.5); Monocytes Absolute Manual 0.78 K/mm3 (0.1-0.90); Monocytes Percent Manual 4 % (3-9); Neutrophils Absolute Manual 18.12 K/mm3 (1.3-6.7); Neutrophils Percent Manual 76 % (46-73); Total Cells Counted 100
[2019-11-14 02:23] LABS: Macrocytosis 1+ (NORMAL); Microcytosis 1+ (NORMAL); Ovalocytes 1+ (NORMAL); Platelet Estimate Adequate (Adequate)
[2019-11-14] MEDS: KCL 20 MEQ/SW 100 ML 100 ML 50 MEQ IVPB (02:56)
--- NOTE | 2019-11-14 03:10 | ADMGEN ---
This patient, Lino Madden [facility], was admitted to Intensive Care Unit-6. Patient/family oriented to hospital policies and general routines including ID bracelet, bed and alarms, visiting hours, pain management, procedures, bathroom and other care routines, personal items, smoking policy, room service/diet, and visiting hours. Valuables list has been completed. 0055 11/14/19 Information on how to activate the Rapid Response Team has been discussed. Patient/Family are encouraged to report perceived risks to care and to ask questions if they do not understand what they are told or what they should do.
[2019-11-14] MEDS: LORAZEPAM INJ 2 MG/ML VIAL 1 MG IV PUSH (04:16)
[2019-11-14] MEDS: LEVOTHYROXINE SODIUM INJ 100 MCG/5 ML VIAL 50 MCG IV PUSH (07:00)
--- NOTE | 2019-11-14 08:55 | PM.IMPN ---
Progress Note: A&P Assessment and Plan (1) Septic shock: Code(s): A41.9 - Sepsis, unspecified organism; R65.21 - Severe sepsis with septic shock Status: Acute Assessment and Plan: Criteria met on admission. Discussed with electric crane operator. Initially started on Cristhian-synephrine when unable to place central line. Right IJ has now been placed with patient transition to Levophed. Blood pressure reviewed on 11/14/2019 and stable with pressors. Urine and blood cultures are pending. Continue IV cefepime and vancomycin. Telemetry reviewed on 11/14/2019 with current sinus rhythm. Will continue to monitor. (2) Pneumonia: Qualifiers: Laterality: bilateral Lung location: unspecified part of lung Pneumonia type: due to unspecified organism Qualified Code(s): J18.9 - Pneumonia, unspecified organism Code(s): J18.9 - Pneumonia, unspecified organism Status: Acute Assessment and Plan: Chest x-ray on admission without significant change from previous admission but given current condition antibiotics continued as noted above. Remains on high-flow oxygen. Will continue to monitor closely. (3) Acute respiratory failure with hypoxia: Code(s): J96.01 - Acute respiratory failure with hypoxia Status: Acute Assessment and Plan: Result of pneumonia. On high-flow oxygen as noted. Continue IV antibiotics as noted. (4) Suspected COVID-19 virus infection: Code(s): R68.89 - Other general symptoms and signs Status: Acute Assessment and Plan: Did have negative testing at [facility] on 11/11/2019. Repeat COVID-19 testing initiated through the emergency room with results currently pending. (5) Hypokalemia: Code(s): E87.6 - Hypokalemia Status: Acute Assessment and Plan: Potassium still low at 3.0 today with IV replacement given. Continue to monitor and replace as needed. Magnesium 1.7 today. (6) Acute renal failure (ARF): Qualifiers: Acute renal failure type: unspecified Qualified Code(s): N17.9 - Acute kidney failure, unspecified Code(s): N17.9 - Acute kidney failure, unspecified Status: Acute Assessment and Plan: Result of infection, dehydration. Creatinine is now back down to 1.20 today. Continue to monitor with IV fluids in place. (7) Dehydration: Code(s): E86.0 - Dehydration Status: Acute Assessment and Plan: Continue IV fluids as noted above. (8) Protein calorie malnutrition: Qualifiers: Protein-calorie malnutrition severity: severe Qualified Code(s): E43 - Unspecified severe protein-calorie malnutrition Code(s): E46 - Unspecified protein-calorie malnutrition Status: Acute Assessment and Plan: Has had poor intake for some time. Discussed with electric crane operator. Albumin initiated. Will monitor with treatment of other acute issues. (9) Normocytic anemia: Code(s): D64.9 - Anemia, unspecified Status: Acute Assessment and Plan: Hgb decreased to 8.4 today but probably dilutional with IV fluids. Will monitor. Only transfuse if needed. (10) Hypothyroidism: Qualifiers: Hypothyroidism type: other Qualified Code(s): E03.8 - Other specified hypothyroidism Code(s): E03.9 - Hypothyroidism, unspecified Status: Chronic Assessment and Plan: Will continue IV levothyroxine for now. (11) Down's syndrome: Code(s): Q90.9 - Down syndrome, unspecified Status: Chronic Assessment and Plan: Resides at nursing facility. (12) DVT prophylaxis: Code(s): Z29.9 - Encounter for prophylactic measures, unspecified Status: Acute Assessment and Plan: Lovenox. Time Spent With Patient Time with patient: 15 - 25 minutes Subjective Date/time seen: 11/14/19 08:55 Interval history: Date of Service: 11/14/2019. Admitted with septic shock, pneumonia. Recently hospitalized with cholecystitis, now S/P
--- NOTE | 2019-11-14 09:00 | WPDCNINT ---
Assessment and Plan Assessment and plan (1) Septic shock: Code(s): A41.9 - Sepsis, unspecified organism; R65.21 - Severe sepsis with septic shock Status: Acute Assessment and Plan: patient presented with hypotension hypoxia, found to have pneumonia on his chest x-ray. Leukocytosis with bandemia - patient was given adequate amount of IV fluids, - femoral central line was attempted able to thread, patient was also moving - currently on Cristhian-Synephrine via peripheral access. - will attempt to place a right IJ - lactic acid increased to 6.043.1 on admission - continue cefepime and vancomycin (2) Pneumonia: Qualifiers: Laterality: bilateral Lung location: unspecified part of lung Pneumonia type: due to unspecified organism Qualified Code(s): J18.9 - Pneumonia, unspecified organism Code(s): J18.9 - Pneumonia, unspecified organism Status: Acute Assessment and Plan: chest x-ray and ABGs reviewed, patient on high-flow oxygen with adequate O2 sats - continue antibiotics as above (3) Suspected COVID-19 virus infection: Code(s): R68.89 - Other general symptoms and signs Status: Acute Assessment and Plan: SARS-COV-2 PCR was sent from the ED - patient had a NEGATIVE COVID -19 test at the [facility] on 11/11/2019 - but given fevers, lymphopenia patient was retested (4) Acute renal failure (ARF): Qualifiers: Acute renal failure type: unspecified Qualified Code(s): N17.9 - Acute kidney failure, unspecified Code(s): N17.9 - Acute kidney failure, unspecified Status: Acute Assessment and Plan: patient also with decreased p.o. intake at the assisted since discharge from the hospital - severe protein calorie malnutrition - elevated creatinine likely related to septic shock, hypotension, ATN, hypovolemia, infection - patient adequately fluid-resuscitated - will give Hespan and started albumin - will insert Swift to monitor accurate output, continue monitoring renal function electrolytes (5) Down's syndrome: Code(s): Q90.9 - Down syndrome, unspecified Status: Chronic Assessment and Plan: history of dogs (6) Anxiety: Code(s): F41.9 - Anxiety disorder, unspecified Status: Chronic (7) Protein calorie malnutrition: Code(s): E46 - Unspecified protein-calorie malnutrition Status: Acute (8) DVT prophylaxis: Code(s): Z29.9 - Encounter for prophylactic measures, unspecified Status: Acute Assessment and Plan: DVT prophylaxis: SCDs Stress ulcer prophylaxis: Protonix Additional Plan discuss with patient's mother and updated her with patient's condition and plan of care Code status: Do not resuscitate critical care time spent: 54 minutes Due to a high probability of clinically significant, life threatening deterioration, the patient required my highest level of preparedness to intervene emergently and I personally spent this critical care time directly and personally managing the patient. This critical care time included obtaining a history; examining the patient; pulse oximetry; ordering and review of studies; arranging urgent treatment with development of a management plan; evaluation of patient's response to treatment; frequent reassessment; and discussions with other providers. It was exclusive of separately billable procedures and treating other patients and teaching time. Please see Assessment and Plan section and the rest of the note for further information on patient assessment and treatment Ear Machine Operator Consult Note Consult date: 11/14/19 Time Seen: 07:02 Reason for consult: septic shock, acute kidney injury, pneumonia, RULE OUT COVID -19 HPI: Lino Jackson is a 59 year old male with significant past medical history of down syndrome, dementia, anxiety, gout, GERD, hypercholesterolemia, hypothyroidism, history of pneumonia, recent admission at
[2019-11-14] MEDS: hetaSTARCH 6%/NACL 500 ML 250 ML IV CONT (09:11)
[2019-11-14] MEDS: PANTOPRAZOLE SODIUM IV 40 MG VIAL IV PUSH (10:25)
[2019-11-14] MEDS: MIDAZOLAM HCL 2 MG/2 ML VIAL 1 MG IV PUSH ×2 (11:11→11:13)
--- NOTE | 2019-11-14 11:45 | WPDPROCEDUR ---
Procedures Central Line Placement: Right IJ: Discussed w/ patient and/or surrogate, the non-emergent placement of a central venous catheter, including its clinical necessity/indication & associated potential risks & complications.: No The patient and/or surrogate understand(s) and acknowledge(s) the need to proceed with central venous catheter insertion as an important element of the patient's clinical management.: No Emergently Placed - (Given emergent patient conditions, temporal constraints may not have permitted and aforementioned informed consent.): Yes Central Line Date: 11/14/19 Central Line Time: 10:32 Pre-procedural Time-Out was completed immediately before starting the procedure and confirmed: Patient Identification, Site, Procedure, Patient Position and the Availability of Requisite Equipment.: Yes Patient Position: supine Patient placed on monitor/pulse ox: Yes Provider Prep: mask, sterile gown, sterile gloves, Max. sterile barrier precautions and hand hygiene Central line prep: Chlorhexidine scrub and sterile full body sheet applied Local anesthesia used: lidocaine 1% Amount of anesthesia used (ml): 2 Ultrasound used for placement: Yes Central line lumen inserted: triple Frisian: 16 Length (cm): 16 Depth of Insertion (cm): 16 Post procedure: sutured in place, good blood return, all ports aspirated, flushed, capped, tegaderm and hemostatic disc Post procedure x-ray: tip of catheter in good position Patient tolerated procedure: well Complications: none
[2019-11-14] MEDS: NOREPINEPHRINE 8 MG/D5W 250 ML 8 MG/250 ML BAG 28.1 MG IV CONT (11:53)
[2019-11-14] MEDS: ENOXAPARIN 30 MG/0.3 ML SYRINGE SUB-Q (12:03)
--- NOTE | 2019-11-14 12:03 | PC.NURSE ---
Central line placed emergently. Attempted to call pt's mom but unable to get a hold of her. Did talk to pt's sister who was going to let the mom know that we were going to attempt to place. Mom gave her consent for line placement in the ER last noc but ER was unable to obtain a central line at that time. Patient is experiencing hypotension and is requiring blood pressure support medications. Levophed ordered at time of line placement at 1115 today.
--- NOTE | 2019-11-14 12:07 | PC.NURSE ---
1153: Verbal order per Dr. Martel to stop the phenylephrine completely and start the levophed at 15mcg/min.
[2019-11-14] MEDS: ALBUMIN HUMAN 25% 12.5 GM/50ML 50 ML IVPB ×3 (12:14→23:09)
[2019-11-14 13:27] LABS: Basophils Percent Auto 0.2 % (0.2-1.2); Hematocrit 25.4 % (42.0-52.0); Hemoglobin 8.4 g/dL (14.0-18.0); Immature Granulocyte Absolute 0.11 K/mm3 (0.00-0.031); Immature Granulocyte Percent A 0.5 % (0-0.5); Lymphocytes Percent Auto 1.4 % (18.3-44.2); Mean Corpuscular HGB Conc 33.1 g/dl (32-36); Mean Corpuscular Volume 84.7 fl (80-100); Mean Platelet Volume 10.9 fl (7.4-10.4); Monocytes Percent Auto 4.6 % (2.6-8.5); Neutrophils Absolute Auto 20.2 K/mm3 (1.3-6.7); Neutrophils Percent Auto 93.3 % (45.5-73.1); Platelet Count Result 153 k/mm3 (150-375); Red Cell Distribution Width 21.5 % (11.5-14.5); White Blood Count 21.6 K/mm3 (4.5-10.0)
[2019-11-14 13:38] LABS: Magnesium 1.7 mg/dL (1.6-2.3); Phosphorus 2.8 mg/dL (2.5-4.5)
[2019-11-14 13:39] LABS: Alanine Aminotransferase 10 U/L (4-50); Alkaline Phosphatase 63 U/L (38-126); Aspartate Amino Transferase 23 U/L (17-59); Bilirubin,Total 0.4 mg/dL (0.2-1.3); Blood Urea Nitrogen 29 mg/dL (9-20); Calcium 7.5 mg/dL (8.4-10.2); Carbon Dioxide 29 mmol/L (22-30); Chloride 113 mmol/L (98-107); Estimated Glomerular Filt Rate > 60; Glucose 135 mg/dL (75-110); Sodium 144 mmol/L (137-145)
[2019-11-14] MEDS: CENTRAL LINE FLUSH 10 ML IV PUSH ×2 (13:46→21:07)
[2019-11-14 13:50] LABS: Lactate Dehydrogenase 238 U/L (313-618)
[2019-11-14 13:55] LABS: Alanine Aminotransferase 11 U/L (4-50); Albumin Level 2.1 g/dL (3.5-5.1); Alkaline Phosphatase 67 U/L (38-126); Aspartate Amino Transferase 23 U/L (17-59); Bilirubin,Total 0.4 mg/dL (0.2-1.3); Blood Urea Nitrogen 29 mg/dL (9-20); Calcium 7.2 mg/dL (8.4-10.2); Carbon Dioxide 27 mmol/L (22-30); Chloride 113 mmol/L (98-107); Estimated Glomerular Filt Rate > 60; Glucose 133 mg/dL (75-110); Magnesium 1.7 mg/dL (1.6-2.3); Sodium 144 mmol/L (137-145)
[2019-11-14 13:59] LABS: CRP 25.2 mg/dL (<1.0)
[2019-11-14 14:04] LABS: D Dimer 2.61 ug/mL (<0.48)
--- NOTE | 2019-11-14 15:00 | PC.NURSE ---
1220: RN spoke with mother on the phone and gave an update about his care. Specifically the need for the central line was discussed and how we tried to contact her earlier for consent. She expressed that she was fine with our emergent decision to insert central line. 1445: Levophed decreased by 2mcg/min per Dr. Martel.
[2019-11-14 19:04] LABS: Alveolar/Arterial O2 Gradient 614.1 mmHg; Base Excess ABG 1.4 mEq/l (+/-2.0); Carboxyhemoglobin 0.2 % THb (0-2.0); Fractional Inspired Oxygen 100 %; HCO3 ABG 26.6 mEq/l (22.0-26.0); Methemoglobin ABG 0.5 %THb (0-1.5); Oxygen Content ABG 12.2 %vol (16.0-22.0); Oxygen Saturation ABG 87.6 % (95.0-100.0); Oxyhemoglobin 85.7 % THb (90.0-100.0); PO2 ABG 53.9 mmHg (80.0-100.0); PO2 FiO2 Ratio Arterial Blood 0.54 %; Reduced Hemoglobin 13.6 %THb (0-5.0); Total Hemoglobin 10.1 g/dL (12.0-18.0)
[2019-11-14 19:05] LABS: Device NON-REBREATHER MASK; Modified Allen's Test Pass; Site Drawn LEFT RADIAL
[2019-11-14] MEDS: NOREPINEPHRINE 8 MG/D5W 250 ML 8 MG/250 ML BAG 26.3 MG IV CONT (23:09)
[2019-11-14] MEDS: LACTATED RINGERS 1,000 ML 75 ML IV CONT (23:10)
[2019-11-15] VITALS (19 sets, daily range): BP systolic 73–123; BP diastolic 48–78; PULSE 73–127; RESP 15–29; TEMP 36.4–37.7; O2SAT 93–100
[2019-11-15] MEDS: CENTRAL LINE FLUSH 10 ML IV PUSH ×3 (05:49→23:27)
[2019-11-15] MEDS: ALBUMIN HUMAN 25% 12.5 GM/50ML 50 ML IVPB ×4 (05:49→23:09)
[2019-11-15] MEDS: LEVOTHYROXINE SODIUM INJ 100 MCG/5 ML VIAL 50 MCG IV PUSH (05:54)
[2019-11-15 05:57] LABS: Estimated Glomerular Filt Rate > 60
[2019-11-15 08:29] LABS: Hematocrit 24.8 % (42.0-52.0); Mean Corpuscular HGB Conc 32.3 g/dl (32-36); Mean Corpuscular Hemoglobin 27.6 pg (26-34); Mean Corpuscular Volume 85.5 fl (80-100); Mean Platelet Volume 11.6 fl (7.4-10.4); Platelet Count Result 124 k/mm3 (150-375); Red Cell Distribution Width 21.7 % (11.5-14.5); White Blood Count 25.4 K/mm3 (4.5-10.0)
[2019-11-15 08:38] LABS: Band Neutrophils Percent 10 % (0-6); Monocytes Percent Manual 2 % (3-9); Neutrophils Absolute Manual 24.38 K/mm3 (1.3-6.7); Neutrophils Percent Manual 86 % (46-73); Total Cells Counted 100
[2019-11-15 08:39] LABS: Lactic Acid Reflex 1.7 mmol/L (0.7-2.1); Platelet Estimate Adequate (Adequate)
[2019-11-15 08:40] LABS: Anisocytosis 1+ (NORMAL)
[2019-11-15 08:41] LABS: Hypochromasia 2+ (NORMAL); Ovalocytes 1+ (NORMAL); Target Cells 1+ (NORMAL)
[2019-11-15 08:44] LABS: Alanine Aminotransferase 11 U/L (4-50); Albumin Level 2.2 g/dL (3.5-5.1); Alkaline Phosphatase 70 U/L (38-126); Aspartate Amino Transferase 26 U/L (17-59); Bilirubin,Total 0.6 mg/dL (0.2-1.3); Blood Urea Nitrogen 14 mg/dL (9-20); Calcium 7.7 mg/dL (8.4-10.2); Carbon Dioxide 30 mmol/L (22-30); Chloride 110 mmol/L (98-107); Estimated Glomerular Filt Rate > 60; Glucose 111 mg/dL (75-110); Potassium 2.6 mmol/L (3.4-5.0); Sodium 145 mmol/L (137-145)
[2019-11-15 08:46] LABS: INR 1.8; Prothrombin Time 20.3 Seconds (11.1-14.7)
[2019-11-15 08:47] LABS: Lactate Dehydrogenase 237 U/L (313-618); Magnesium 1.7 mg/dL (1.6-2.3); Phosphorus 1.5 mg/dL (2.5-4.5)
[2019-11-15 08:49] LABS: D Dimer 2.07 ug/mL (<0.48)
[2019-11-15] MEDS: PANTOPRAZOLE SODIUM IV 40 MG VIAL IV PUSH (08:50)
[2019-11-15 08:57] LABS: CRP 23.5 mg/dL (<1.0)
--- NOTE | 2019-11-15 09:41 | WPDINTPN ---
Progress Note: A&P Assessment and Plan (1) Septic shock: Code(s): A41.9 - Sepsis, unspecified organism; R65.21 - Severe sepsis with septic shock Status: Acute Assessment and Plan: patient presented with hypotension hypoxia, found to have pneumonia on his chest x-ray. Leukocytosis with bandemia - will decrease maintenance IV fluid - right IJ central line was placed on 11/14/2019 in the ICU - patient on Levophed, will maintain - lactic acid is normal - continue cefepime and vancomycin (2) Pneumonia: Qualifiers: Laterality: bilateral Lung location: unspecified part of lung Pneumonia type: due to unspecified organism Qualified Code(s): J18.9 - Pneumonia, unspecified organism Code(s): J18.9 - Pneumonia, unspecified organism Status: Acute Assessment and Plan: chest x-ray and ABGs reviewed, patient on high-flow oxygen with adequate O2 sats - continue antibiotics as above (3) Suspected COVID-19 virus infection: Code(s): R68.89 - Other general symptoms and signs Status: Acute Assessment and Plan: SARS-COV-2 PCR was sent from the ED - [facility] - but given fevers, lymphopenia patient was retested (4) Acute renal failure (ARF): Qualifiers: Acute renal failure type: unspecified Qualified Code(s): N17.9 - Acute kidney failure, unspecified Code(s): N17.9 - Acute kidney failure, unspecified Status: Acute Assessment and Plan: NERY resolved and creatinine back to baseline - patient presented with a creatinine of 2.2 coma late urine dehydration, decreased p.o. intake, severe protein calorie malnutrition - elevated creatinine could also related to septic shock, hypotension, ATN, hypovolemia, infection - patient adequately fluid-resuscitated - will give Hespan and started albumin - will insert Swift to monitor accurate output, continue monitoring renal function electrolytes (5) Down's syndrome: Code(s): Q90.9 - Down syndrome, unspecified Status: Chronic Assessment and Plan: history of dogs (6) Protein calorie malnutrition: Qualifiers: Protein-calorie malnutrition severity: severe Qualified Code(s): E43 - Unspecified severe protein-calorie malnutrition Code(s): E46 - Unspecified protein-calorie malnutrition Status: Acute Assessment and Plan: december start TPN, will discontinue maintenance IV fluids when TPN is started (7) DVT prophylaxis: Code(s): Z29.9 - Encounter for prophylactic measures, unspecified Status: Acute Assessment and Plan: DVT prophylaxis: Lovenox and SCDs Stress ulcer prophylaxis: Protonix Additional Plan will discuss with mother and updated her with patient's condition and plan of care. Code status: Do not resuscitate critical care time spent: 34 minutes Due to a high probability of clinically significant, life threatening deterioration, the patient required my highest level of preparedness to intervene emergently and I personally spent this critical care time directly and personally managing the patient. This critical care time included obtaining a history; examining the patient; pulse oximetry; ordering and review of studies; arranging urgent treatment with development of a management plan; evaluation of patient's response to treatment; frequent reassessment; and discussions with other providers. It was exclusive of separately billable procedures and treating other patients and teaching time. Please see Assessment and Plan section and the rest of the note for further information on patient assessment and treatment Subjective Date/time seen: 11/15/19 09:41 Reason for consult: septic shock, acute kidney injury, pneumonia, RULE OUT COVID -19 [id number]: Patient seen and examined this morning in the ICU. Remains on Levophed at 8 mcg/min. patient desaturated yeste
[2019-11-15] MEDS: ENOXAPARIN 30 MG/0.3 ML SYRINGE SUB-Q (10:00)
[2019-11-15] MEDS: POTASSIUM PHOS,M-BASIC-D-BASIC 20 MMOL in SODIUM CHLORIDE 0.9% IV 250 ML 62.5 MMOL IVPB (10:25)
--- NOTE | 2019-11-15 11:51 | PM.IMPN ---
Progress Note: A&P Assessment and Plan (1) Septic shock: Code(s): A41.9 - Sepsis, unspecified organism; R65.21 - Severe sepsis with septic shock Status: Acute Assessment and Plan: Criteria met on admission. Discussed with customer service technician. Initially started on Cristhian-synephrine when unable to place central line. Right IJ placed by customer service technician on 11/14/2019 with patient transition to Levophed. Blood pressure reviewed on 11/15/2019 and stable with Levophed still in place. Urine culture now growing Enterococcus with blood cultures still negative. Continue IV cefepime and vancomycin. Telemetry reviewed on 11/15/2019 with sinus rhythm. Will continue to monitor. Emergency Medical Technician Basic was able to speak with patient's mother today with patient now no intubation, no CPR. Will continue to monitor closely. (2) Pneumonia: Qualifiers: Laterality: bilateral Lung location: unspecified part of lung Pneumonia type: due to unspecified organism Qualified Code(s): J18.9 - Pneumonia, unspecified organism Code(s): J18.9 - Pneumonia, unspecified organism Status: Acute Assessment and Plan: Chest x-ray today with continued diffuse bilateral airspace disease and bilateral pleural effusions right greater than left. Remains on high-flow oxygen. Remains on IV antibiotics as noted above. Will continue to monitor. (3) Acute respiratory failure with hypoxia: Code(s): J96.01 - Acute respiratory failure with hypoxia Status: Acute Assessment and Plan: Result of pneumonia. Remains on Airvo high-flow oxygen with flow rate at 60 an FiO2 up to 100%. Change in code status as noted above with patient now no intubation along with no CPR. Continue IV antibiotics as noted. Will monitor closely. (4) Suspected COVID-19 virus infection: Code(s): R68.89 - Other general symptoms and signs Status: Acute Assessment and Plan: Did have negative testing at [facility] on 11/11/2019. Repeat COVID-19 testing initiated through the emergency room through [facility] with results still pending. (5) Hypokalemia: Code(s): E87.6 - Hypokalemia Status: Acute Assessment and Plan: Potassium even lower today at 2.6 this morning. Continue to replace with IV potassium. Will continue to monitor and adjust replacement as needed. (6) Acute renal failure (ARF): Qualifiers: Acute renal failure type: unspecified Qualified Code(s): N17.9 - Acute kidney failure, unspecified Code(s): N17.9 - Acute kidney failure, unspecified Status: Resolved Assessment and Plan: Result of infection, dehydration. Now resolved with creatinine 0.80 today. Will continue to monitor. (7) Dehydration: Code(s): E86.0 - Dehydration Status: Acute Assessment and Plan: Improved. IV fluids discontinued with starting of TPN as noted below. (8) Protein calorie malnutrition: Qualifiers: Protein-calorie malnutrition severity: severe Qualified Code(s): E43 - Unspecified severe protein-calorie malnutrition Code(s): E46 - Unspecified protein-calorie malnutrition Status: Acute Assessment and Plan: Has had poor intake for some time. TPN started. Will monitor with other issues. (9) Normocytic anemia: Code(s): D64.9 - Anemia, unspecified Status: Acute Assessment and Plan: Hgb decreased to 8.4 today but probably dilutional with IV fluids. Will monitor. Only transfuse if needed. (10) Hypothyroidism: Qualifiers: Hypothyroidism type: other Qualified Code(s): E03.8 - Other specified hypothyroidism Code(s): E03.9 - Hypothyroidism, unspecified Status: Chronic Assessment and Plan: Will continue IV levothyroxine for now. (11) Down's syndrome: Code(s): Q90.9 - Down syndrome, unspecified Status: Chronic Assessment and Plan: Resides at nursing facility. (12) DVT prophylaxis:
--- NOTE | 2019-11-15 13:15 | PC.NURSE ---
1310: Hold TPN for now per Dr. Martel. We are focusing on breathing/oxygenation at this time.
[2019-11-15] MEDS: FAT EMULSIONS IV 20% 250 ML 20.8 ML IVPB (15:13)
[2019-11-15] MEDS: LORAZEPAM INJ 2 MG/ML VIAL 1 MG IV PUSH (20:00)
[2019-11-15] MEDS: NOREPINEPHRINE 8 MG/D5W 250 ML 8 MG/250 ML BAG 11.3 MG IV CONT (20:23)
--- NOTE | 2019-11-15 20:27 | PC.NURSE ---
2024: New bag of levophed started at 1714. RN unable to edit charting so night RN documented later.
[2019-11-15 23:41] LABS: Glucose Point of Care 120 (65-105)
[2019-11-16] VITALS (19 sets, daily range): BP systolic 84–116; BP diastolic 59–88; PULSE 77–115; RESP 14–37; TEMP 36.5–37.6; O2SAT 94–100
[2019-11-16 04:30] LABS: Basophils Absolute Auto 0.1 K/mm3 (0.0-0.1); Basophils Percent Auto 0.6 % (0.2-1.2); Eosinophils Absolute Auto 0.3 K/mm3 (0-0.3); Eosinophils Percent Auto 1.3 % (0-4.4); Hematocrit 25.2 % (42.0-52.0); Immature Granulocyte Absolute 1.26 K/mm3 (0.00-0.031); Immature Granulocyte Percent A 6.3 % (0-0.5); Lymphocytes Absolute Auto 1.48 K/mm3 (0.9-3.2); Lymphocytes Percent Auto 7.4 % (18.3-44.2); Mean Corpuscular HGB Conc 31.7 g/dl (32-36); Mean Corpuscular Hemoglobin 27.4 pg (26-34); Mean Corpuscular Volume 86.3 fl (80-100); Mean Platelet Volume 11.4 fl (7.4-10.4); Monocytes Absolute Auto 1.2 K/mm3 (0.1-0.6); Monocytes Percent Auto 5.9 % (2.6-8.5); Neutrophils Absolute Auto 15.8 K/mm3 (1.3-6.7); Neutrophils Percent Auto 78.5 % (45.5-73.1); Platelet Count Result 99 k/mm3 (150-375); Red Blood Count 2.92 M/mm3 (4.6-6.20); Red Cell Distribution Width 22.1 % (11.5-14.5); White Blood Count 20.1 K/mm3 (4.5-10.0)
[2019-11-16 04:40] LABS: INR 1.3; Lactic Acid 2.1 mmol/L (0.7-2.1); Prothrombin Time 15.8 Seconds (11.1-14.7)
[2019-11-16 04:41] LABS: Alanine Aminotransferase 11 U/L (4-50); Albumin Level 2.4 g/dL (3.5-5.1); Alkaline Phosphatase 69 U/L (38-126); Aspartate Amino Transferase 23 U/L (17-59); Bilirubin,Total 0.3 mg/dL (0.2-1.3); Blood Urea Nitrogen 11 mg/dL (9-20); Carbon Dioxide 33 mmol/L (22-30); Chloride 107 mmol/L (98-107); Estimated Glomerular Filt Rate > 60; Glucose 114 mg/dL (75-110); Magnesium 1.9 mg/dL (1.6-2.3); Partial Thromboplastin Time 60.5 SECONDS (22.3-36.8); Phosphorus 1.9 mg/dL (2.5-4.5); Sodium 143 mmol/L (137-145)
[2019-11-16 05:07] LABS: Hypochromasia 1+ (NORMAL); Large Platelets Present; Platelet Estimate Decreased (Adequate); Target Cells 1+ (NORMAL)
[2019-11-16] MEDS: CENTRAL LINE FLUSH 10 ML IV PUSH ×3 (06:05→23:29)
[2019-11-16] MEDS: ALBUMIN HUMAN 25% 12.5 GM/50ML 50 ML IVPB (06:06)
[2019-11-16] MEDS: LEVOTHYROXINE SODIUM INJ 100 MCG/5 ML VIAL 50 MCG IV PUSH (06:07)
[2019-11-16] MEDS: FUROSEMIDE INJ 40 MG/4 ML VIAL 20 MG IV PUSH (08:13)
[2019-11-16] MEDS: PANTOPRAZOLE SODIUM IV 40 MG VIAL IV PUSH (08:16)
[2019-11-16] MEDS: ENOXAPARIN 30 MG/0.3 ML SYRINGE SUB-Q (08:16)
[2019-11-16] MEDS: MAGNESIUM SULF 2 GM/WATER 50ML 2 GM/50 ML BAG IVPB (08:30)
[2019-11-16] MEDS: POTASSIUM PHOS,M-BASIC-D-BASIC 20 MMOL in SODIUM CHLORIDE 0.9% IV 250 ML 62.5 MMOL IVPB (08:35)
[2019-11-16] MEDS: NOREPINEPHRINE 8 MG/D5W 250 ML 8 MG/250 ML BAG 3.8 MG IV CONT (08:36)
--- NOTE | 2019-11-16 11:03 | PCDIET ---
Nutrition Follow-Up Complete: Nutrition Diagnosis: Inadequate energy intake related to multiple medical issues as evidenced by patient at 86% of ideal body weight with 7% weight loss x 1 month. Nutrition Goal: Patient to meet estimated nutritional needs. Goal in progress. Patient receiving Clinimix 5/15 E at 20mL/hr with 250mL 20% lipids daily for total of 840kcal and 24g protein. MD ordered NG feedings: Vital 1.2 at 20mL/hr goal provides additional 528kcal and 33g protein over 22 hours/day. Last recorded weight is 41.8 kg which is stable. Bowel Motility: BM x 1 on 11/15/19. Labs Reviewed: Glu (114), K (3.0), PO4 (1.9) Meds Noted: KCl, K-Phos, Magnesium Sulfate, Levophed, Protonix, Vancomycin, Lasix Additional Notes: Coccyx ulcer documented. Patient with ultimately higher protein/kcal needs; however, agree with slow progression of nutrition support due to risk of refeeding. Nutrition Monitoring and Evaluation: Follow up every Friday/Friday. Follow daily in ICU rounds.
--- NOTE | 2019-11-16 12:06 | WPDINTPN ---
Progress Note: A&P Assessment and Plan (1) Septic shock: Code(s): A41.9 - Sepsis, unspecified organism; R65.21 - Severe sepsis with septic shock Status: Acute Assessment and Plan: patient presented with hypotension hypoxia, found to have pneumonia on his chest x-ray. Leukocytosis with bandemia - IV fluids have been discontinued patient on TPN - right IJ central line was placed on 11/14/2019 in the ICU - patient on Levophed, will maintain mean arterial pressure is greater than 60 mmHg - lactic acid is normal - continue cefepime and vancomycin (2) Pneumonia: Qualifiers: Laterality: bilateral Lung location: unspecified part of lung Pneumonia type: due to unspecified organism Qualified Code(s): J18.9 - Pneumonia, unspecified organism Code(s): J18.9 - Pneumonia, unspecified organism Status: Acute Assessment and Plan: chest x-ray and ABGs reviewed, patient on high-flow oxygen via Airvo and non-rebreather mask with adequate O2 sats. patient is a mouth breather - continue antibiotics as above (3) Suspected COVID-19 virus infection: Code(s): R68.89 - Other general symptoms and signs Status: Acute Assessment and Plan: SARS-COV-2 PCR was sent from the ED And is pending - [facility] - but given fevers, lymphopenia patient was retested - elevated D-dimer, ferritin, CRP, - LDH is low, procalcitonin is pending (4) Acute renal failure (ARF): Qualifiers: Acute renal failure type: unspecified Qualified Code(s): N17.9 - Acute kidney failure, unspecified Code(s): N17.9 - Acute kidney failure, unspecified Status: Resolved Assessment and Plan: NERY resolved and creatinine back to baseline - patient presented with a creatinine of 2.2 coma late urine dehydration, decreased p.o. intake, severe protein calorie malnutrition - elevated creatinine could also related to septic shock, hypotension, ATN, hypovolemia, infection - continue monitoring renal function electrolytes, electrolytes and urine output - will replace potassium, phosphorus and Mag (5) Down's syndrome: Code(s): Q90.9 - Down syndrome, unspecified Status: Chronic Assessment and Plan: history of dogs (6) Protein calorie malnutrition: Qualifiers: Protein-calorie malnutrition severity: severe Qualified Code(s): E43 - Unspecified severe protein-calorie malnutrition Code(s): E46 - Unspecified protein-calorie malnutrition Status: Acute Assessment and Plan: will insert NG tube and start tube feeds gradually (7) DVT prophylaxis: Code(s): Z29.9 - Encounter for prophylactic measures, unspecified Status: Acute Assessment and Plan: DVT prophylaxis: Lovenox and SCDs Stress ulcer prophylaxis: Protonix Additional Plan will discuss with mother and updated her with patient's condition and plan of care. Code status: Do not resuscitate critical care time spent: 32 minutes Due to a high probability of clinically significant, life threatening deterioration, the patient required my highest level of preparedness to intervene emergently and I personally spent this critical care time directly and personally managing the patient. This critical care time included obtaining a history; examining the patient; pulse oximetry; ordering and review of studies; arranging urgent treatment with development of a management plan; evaluation of patient's response to treatment; frequent reassessment; and discussions with other providers. It was exclusive of separately billable procedures and treating other patients and teaching time. Please see Assessment and Plan section and the rest of the note for further information on patient assessment and treatment Subjective Date/time seen: 11/16/19 12:06 Reason for consult: septic shock, acute kidney injury, pneumon
[2019-11-16 13:37] LABS: Glucose Point of Care 115 (65-105)
[2019-11-16 13:45] LABS: SARS-CoV-2 RNA PCR Negative
[2019-11-16] MEDS: GUAIFENESIN 200 MG/10 ML UDC PO ×3 (13:45→23:29)
--- NOTE | 2019-11-16 18:07 | PM.IMPN ---
Progress Note: A&P Assessment and Plan (1) Septic shock: Code(s): A41.9 - Sepsis, unspecified organism; R65.21 - Severe sepsis with septic shock Status: Acute Assessment and Plan: Criteria met on admission. Discussed with environmental protection economist. Initially started on Cristhian-synephrine when unable to place central line. Right IJ placed by environmental protection economist on 11/14/2019 with patient transition to Levophed. Blood pressure reviewed on 11/15/2019 and stable with Levophed still in place. Urine culture now growing Enterococcus with blood cultures still negative. Continue IV cefepime and vancomycin. Telemetry reviewed on 11/15/2019 with sinus rhythm. Will continue to monitor. [employer] was able to speak with patient's mother 11/14 with patient now no intubation, no CPR. Will continue to monitor closely. (2) Pneumonia: Qualifiers: Laterality: bilateral Lung location: unspecified part of lung Pneumonia type: due to unspecified organism Qualified Code(s): J18.9 - Pneumonia, unspecified organism Code(s): J18.9 - Pneumonia, unspecified organism Status: Acute Assessment and Plan: Chest x-ray today with continued diffuse bilateral airspace disease and bilateral pleural effusions right greater than left. No significant change from yesterday Remains on high-flow oxygen. Remains on IV antibiotics as noted above. Will continue to monitor. (3) Acute respiratory failure with hypoxia: Code(s): J96.01 - Acute respiratory failure with hypoxia Status: Acute Assessment and Plan: Result of pneumonia. Remains on Airvo high-flow oxygen with flow rate at 60 an FiO2 up to 100%. Change in code status as noted above with patient now no intubation along with no CPR. Continue IV antibiotics as noted. Will monitor closely. (4) Suspected COVID-19 virus infection: Code(s): R68.89 - Other general symptoms and signs Status: Acute Assessment and Plan: Did have negative testing at [facility] on 11/11/2019. Repeat COVID-19 testing initiated through the emergency room through ID with results still pending. (5) Hypokalemia: Code(s): E87.6 - Hypokalemia Status: Acute Assessment and Plan: Potassium even lower today at 2.6 this morning. Continue to replace with IV potassium. Will continue to monitor and adjust replacement as needed. (6) Acute renal failure (ARF): Qualifiers: Acute renal failure type: unspecified Qualified Code(s): N17.9 - Acute kidney failure, unspecified Code(s): N17.9 - Acute kidney failure, unspecified Status: Resolved Assessment and Plan: Result of infection, dehydration. Now resolved with creatinine 0.80 today. Will continue to monitor. (7) Dehydration: Code(s): E86.0 - Dehydration Status: Acute Assessment and Plan: Improved. IV fluids discontinued with starting of TPN as noted below. (8) Protein calorie malnutrition: Qualifiers: Protein-calorie malnutrition severity: severe Qualified Code(s): E43 - Unspecified severe protein-calorie malnutrition Code(s): E46 - Unspecified protein-calorie malnutrition Status: Acute Assessment and Plan: Has had poor intake for some time. TPN started. Will monitor with other issues. (9) Normocytic anemia: Code(s): D64.9 - Anemia, unspecified Status: Acute Assessment and Plan: Hgb decreased to 8.4 today but probably dilutional with IV fluids. Will monitor. Only transfuse if needed. (10) Hypothyroidism: Qualifiers: Hypothyroidism type: other Qualified Code(s): E03.8 - Other specified hypothyroidism Code(s): E03.9 - Hypothyroidism, unspecified Status: Chronic Assessment and Plan: Will continue IV levothyroxine for now. (11) Down's syndrome: Code(s): Q90.9 - Down syndrome, unspecified Status: Chronic Assessment and Plan: Resides at nursing fac
[2019-11-16 18:35] LABS: Glucose Point of Care 97 (65-105)
[2019-11-16 22:49] LABS: Triglycerides 63 mg/dL (<150)
[2019-11-16 23:56] LABS: Glucose Point of Care 118 (65-105)
[2019-11-17] VITALS (15 sets, daily range): BP systolic 84–102; BP diastolic 48–71; PULSE 104–133; RESP 19–33; TEMP 36.7–37.7; O2SAT 90–100
[2019-11-17 02:55] LABS: Vancomycin Trough 6.7 ug/mL (10.0-20.0)
[2019-11-17] MEDS: NOREPINEPHRINE 8 MG/D5W 250 ML 8 MG/250 ML BAG 7.5 MG IV CONT (03:06)
[2019-11-17 04:13] LABS: Alveolar/Arterial O2 Gradient 609.7 mmHg; Base Excess ABG 11.4 mEq/l (+/-2.0); Carboxyhemoglobin 0.2 % THb (0-2.0); Fractional Inspired Oxygen 100 %; HCO3 ABG 35.4 mEq/l (22.0-26.0); Methemoglobin ABG 0.6 %THb (0-1.5); Oxygen Content ABG 11.9 %vol (16.0-22.0); Oxygen Saturation ABG 92.8 % (95.0-100.0); Oxyhemoglobin 90.5 % THb (90.0-100.0); PCO2 ABG 44.4 mmHg (35.0-45.0); PO2 ABG 58.9 mmHg (80.0-100.0); PO2 FiO2 Ratio Arterial Blood 0.59 %; Reduced Hemoglobin 8.7 %THb (0-5.0); Total Hemoglobin 9.3 g/dL (12.0-18.0)
[2019-11-17 04:14] LABS: Device HIGH FLOW THERAPY; Site Drawn LEFT BRACHIAL; pH ABG 7.519 (7.350-7.450)
[2019-11-17 04:42] LABS: Hematocrit 24.9 % (42.0-52.0); Hemoglobin 8.2 g/dL (14.0-18.0); Immature Platelet Fraction Pct 16.4 % (0.9-11.2); Mean Corpuscular HGB Conc 32.9 g/dl (32-36); Mean Corpuscular Hemoglobin 27.6 pg (26-34); Mean Corpuscular Volume 83.8 fl (80-100); Mean Platelet Volume 11.9 fl (7.4-10.4); Platelet Count Result 98 k/mm3 (150-375); Red Blood Count 2.97 M/mm3 (4.6-6.20); Red Cell Distribution Width 21.2 % (11.5-14.5); White Blood Count 15.1 K/mm3 (4.5-10.0)
[2019-11-17 04:54] LABS: Alanine Aminotransferase 11 U/L (4-50); Albumin Level 2.5 g/dL (3.5-5.1); Alkaline Phosphatase 84 U/L (38-126); Aspartate Amino Transferase 20 U/L (17-59); Bilirubin,Total 0.3 mg/dL (0.2-1.3); Blood Urea Nitrogen 12 mg/dL (9-20); Calcium 7.8 mg/dL (8.4-10.2); Carbon Dioxide 38 mmol/L (22-30); Chloride 102 mmol/L (98-107); Estimated Glomerular Filt Rate > 60; Glucose 175 mg/dL (75-110); Magnesium 2.2 mg/dL (1.6-2.3); Phosphorus 1.9 mg/dL (2.5-4.5); Potassium 3.3 mmol/L (3.4-5.0); Sodium 142 mmol/L (137-145)
[2019-11-17 04:54] LABS: Lactic Acid 2.3 mmol/L (0.7-2.1)
[2019-11-17 05:17] LABS: INR 1.1; Prothrombin Time 13.7 Seconds (11.1-14.7)
[2019-11-17 05:18] LABS: Band Neutrophils Percent 3 % (0-6); Lymphocytes Absolute Manual 1.81 K/mm3 (1.1-4.5); Metamyelocytes Percent 2 %; Microcytosis 1+ (NORMAL); Monocytes Percent Manual 8 % (3-9); Neutrophils Absolute Manual 11.77 K/mm3 (1.3-6.7); Neutrophils Percent Manual 75 % (46-73); Ovalocytes 1+ (NORMAL); Platelet Estimate Decreased (Adequate); Total Cells Counted 100
[2019-11-17 05:18] LABS: Partial Thromboplastin Time 46.3 SECONDS (22.3-36.8)
[2019-11-17 05:19] LABS: Macrocytosis 1+ (NORMAL)
[2019-11-17 05:54] LABS: Glucose Point of Care 119 (65-105)
[2019-11-17] MEDS: LEVOTHYROXINE SODIUM INJ 100 MCG/5 ML VIAL 50 MCG IV PUSH (05:59)
[2019-11-17] MEDS: GUAIFENESIN 200 MG/10 ML UDC PO ×2 (06:00→17:25)
[2019-11-17] MEDS: CENTRAL LINE FLUSH 10 ML IV PUSH ×3 (06:00→22:45)
[2019-11-17 08:33] LABS: Procalcitonin 5.85 ng/mL (<0.10)
[2019-11-17] MEDS: POTASSIUM PHOS,M-BASIC-D-BASIC 20 MMOL in SODIUM CHLORIDE 0.9% IV 250 ML 62.5 MMOL IVPB (08:51)
[2019-11-17] MEDS: PANTOPRAZOLE SODIUM IV 40 MG VIAL IV PUSH (08:52)
[2019-11-17] MEDS: ENOXAPARIN 30 MG/0.3 ML SYRINGE SUB-Q (08:52)
--- NOTE | 2019-11-17 10:50 | PCDIET ---
ICU Rounding Note: Patient is tolerating Vital 1.2 at 20mL/hr. Discussed with MD and plan to keep feedings at present rate due to prolonged poor intake. Will likely recommend increase to 30mL/hr in another 24 hours. Last recorded weight is 45.7kg which is increased. Bowel Motility: BM x 1 on 11/15/19. Labs Reviewed: Glu (119), K (3.3), PO4 (1.9), Samuel Ca (9.0) Meds Noted: KCl, KPhos, Vancomycin, Cefepime, Levophed, Protonix Additional Notes: TPN has been discontinued. No changes to coccyx ulcer reported. Patient is now do not intubate with no CPR. Recommend continued electrolyte replacement, as medically appropriate. Following daily in ICU rounds. Assessing/reassessing every Friday/Friday.
--- NOTE | 2019-11-17 12:09 | WPDINTPN ---
Progress Note: A&P Assessment and Plan (1) Septic shock: Code(s): A41.9 - Sepsis, unspecified organism; R65.21 - Severe sepsis with septic shock Status: Acute Assessment and Plan: patient presented with hypotension hypoxia, found to have pneumonia on his chest x-ray. Leukocytosis with bandemia - IV fluids have been discontinued patient on TPN - right IJ central line was placed on 11/14/2019 in the ICU - patient on Levophed, will maintain mean arterial pressure is greater than 65 mmHg - lactic acid is normal - continue cefepime and vancomycin - chest x-ray shows slight improvement on the right and left lung base. Some worsening opacities at the left perihilar region (2) Pneumonia: Qualifiers: Laterality: bilateral Lung location: unspecified part of lung Pneumonia type: due to unspecified organism Qualified Code(s): J18.9 - Pneumonia, unspecified organism Code(s): J18.9 - Pneumonia, unspecified organism Status: Acute Assessment and Plan: chest x-ray and ABGs reviewed, patient on high-flow oxygen via Airvo and non-rebreather mask with adequate O2 sats. patient is a mouth breather - continue antibiotics as above (3) Suspected COVID-19 virus infection: Code(s): R68.89 - Other general symptoms and signs Status: Acute Assessment and Plan: SARS-COV-2 PCR NEGATIVE ON 06/23/2020 - [facility] - but given fevers, lymphopenia patient was retested (4) Acute renal failure (ARF): Qualifiers: Acute renal failure type: unspecified Qualified Code(s): N17.9 - Acute kidney failure, unspecified Code(s): N17.9 - Acute kidney failure, unspecified Status: Resolved Assessment and Plan: NERY resolved and creatinine back to baseline - patient presented with a creatinine of 2.2 coma late urine dehydration, decreased p.o. intake, severe protein calorie malnutrition - elevated creatinine could also related to septic shock, hypotension, ATN, hypovolemia, infection - continue monitoring renal function electrolytes, electrolytes and urine output - will replace potassium, phosphorus (5) Down's syndrome: Code(s): Q90.9 - Down syndrome, unspecified Status: Chronic Assessment and Plan: (6) Protein calorie malnutrition: Qualifiers: Protein-calorie malnutrition severity: severe Qualified Code(s): E43 - Unspecified severe protein-calorie malnutrition Code(s): E46 - Unspecified protein-calorie malnutrition Status: Acute Assessment and Plan: patient started on tube feeds, currently at 20 mL/hour and tolerating. (7) DVT prophylaxis: Code(s): Z29.9 - Encounter for prophylactic measures, unspecified Status: Acute Assessment and Plan: DVT prophylaxis: Lovenox and SCDs Stress ulcer prophylaxis: Protonix Additional Plan will discuss with mother and updated her with patient's condition and plan of care. Code status: Do not resuscitate critical care time spent: 32 minutes Due to a high probability of clinically significant, life threatening deterioration, the patient required my highest level of preparedness to intervene emergently and I personally spent this critical care time directly and personally managing the patient. This critical care time included obtaining a history; examining the patient; pulse oximetry; ordering and review of studies; arranging urgent treatment with development of a management plan; evaluation of patient's response to treatment; frequent reassessment; and discussions with other providers. It was exclusive of separately billable procedures and treating other patients and teaching time. Please see Assessment and Plan section and the rest of the note for further information on patient assessment and treatment Subjective Date/time seen: 11/17/19 12:09 Reason for consult: sept
[2019-11-17 14:27] LABS: Glucose Point of Care 123 (65-105)
[2019-11-17 17:11] LABS: Glucose Point of Care 115 (65-105)
--- NOTE | 2019-11-17 17:46 | PM.IMPN ---
Progress Note: A&P Assessment and Plan (1) Septic shock: Code(s): A41.9 - Sepsis, unspecified organism; R65.21 - Severe sepsis with septic shock Status: Acute Assessment and Plan: Criteria met on admission. Discussed with fresh foods cake decorator. Initially started on Cristhian-synephrine when unable to place central line. Right IJ placed by fresh foods cake decorator on 11/14/2019 with patient transition to Levophed. Blood pressure reviewed on 11/15/2019 and stable with Levophed still in place. Urine culture now growing Enterococcus with blood cultures still negative. Continue IV cefepime and vancomycin. Telemetry reviewed on 11/15/2019 with sinus rhythm. Will continue to monitor. [employer] was able to speak with patient's mother 11/14 with patient now no intubation, no CPR. Will continue to monitor closely. patient is on comfort care (2) Pneumonia: Qualifiers: Laterality: bilateral Lung location: unspecified part of lung Pneumonia type: due to unspecified organism Qualified Code(s): J18.9 - Pneumonia, unspecified organism Code(s): J18.9 - Pneumonia, unspecified organism Status: Acute Assessment and Plan: Chest x-ray today with continued diffuse bilateral airspace disease and bilateral pleural effusions right greater than left. No significant change from yesterday Remains on high-flow oxygen. Remains on IV antibiotics as noted above. Will continue to monitor. (3) Acute respiratory failure with hypoxia: Code(s): J96.01 - Acute respiratory failure with hypoxia Status: Acute Assessment and Plan: Result of pneumonia. Remains on Airvo high-flow oxygen with flow rate at 60 an FiO2 up to 100%. Change in code status as noted above with patient now no intubation along with no CPR. Continue IV antibiotics as noted. Will monitor closely. (4) Suspected COVID-19 virus infection: Code(s): R68.89 - Other general symptoms and signs Status: Acute Assessment and Plan: Did have negative testing at [facility] [place] on 11/11/2019. Repeat COVID-19 testing initiated through the emergency room through ID with results repeat test on 11/11 was negative. (5) Hypokalemia: Code(s): E87.6 - Hypokalemia Status: Acute Assessment and Plan: Potassium even lower today at 2.6 this morning. Continue to replace with IV potassium. Will continue to monitor and adjust replacement as needed. (6) Acute renal failure (ARF): Qualifiers: Acute renal failure type: unspecified Qualified Code(s): N17.9 - Acute kidney failure, unspecified Code(s): N17.9 - Acute kidney failure, unspecified Status: Resolved Assessment and Plan: Result of infection, dehydration. Now resolved with creatinine 0.80 today. Will continue to monitor. (7) Dehydration: Code(s): E86.0 - Dehydration Status: Acute Assessment and Plan: Improved. IV fluids discontinued with starting of TPN as noted below. (8) Protein calorie malnutrition: Qualifiers: Protein-calorie malnutrition severity: severe Qualified Code(s): E43 - Unspecified severe protein-calorie malnutrition Code(s): E46 - Unspecified protein-calorie malnutrition Status: Acute Assessment and Plan: Has had poor intake for some time. TPN started. Will monitor with other issues. (9) Normocytic anemia: Code(s): D64.9 - Anemia, unspecified Status: Acute Assessment and Plan: Hgb decreased to 8.4 today but probably dilutional with IV fluids. Will monitor. Only transfuse if needed. (10) Hypothyroidism: Qualifiers: Hypothyroidism type: other Qualified Code(s): E03.8 - Other specified hypothyroidism Code(s): E03.9 - Hypothyroidism, unspecified Status: Chronic Assessment and Plan: Will continue IV levothyroxine for now. (11) Down's syndrome: Code(s): Q90.9 - Down syndrome, unspecified Status: Chronic
[2019-11-17] MEDS: LORAZEPAM INJ 2 MG/ML VIAL 1 MG IV PUSH (20:46)
[2019-11-18] VITALS (16 sets, daily range): BP systolic 75–118; BP diastolic 55–94; PULSE 91–140; RESP 20–38; TEMP 36.5–38.1; O2SAT 83–97
[2019-11-18] MEDS: GUAIFENESIN 200 MG/10 ML UDC PO ×4 (00:11→17:22)
[2019-11-18 00:40] LABS: Glucose Point of Care 100 (65-105)
[2019-11-18 04:23] LABS: Base Excess ABG 10.3 mEq/l (+/-2.0); Carboxyhemoglobin 0.2 % THb (0-2.0); Fractional Inspired Oxygen 100 %; HCO3 ABG 34.9 mEq/l (22.0-26.0); Methemoglobin ABG 0.6 %THb (0-1.5); Oxygen Content ABG 11.9 %vol (16.0-22.0); Oxygen Saturation ABG 94.2 % (95.0-100.0); Oxyhemoglobin 92.1 % THb (90.0-100.0); PCO2 ABG 47.6 mmHg (35.0-45.0); PO2 ABG 66.4 mmHg (80.0-100.0); PO2 FiO2 Ratio Arterial Blood 0.66 %; Reduced Hemoglobin 7.1 %THb (0-5.0); Total Hemoglobin 9.1 g/dL (12.0-18.0); pH ABG 7.483 (7.350-7.450)
[2019-11-18 04:24] LABS: Device HIGH FLOW THERAPY; Site Drawn LEFT BRACHIAL
[2019-11-18] MEDS: CENTRAL LINE FLUSH 10 ML IV PUSH ×3 (05:28→20:56)
[2019-11-18] MEDS: LEVOTHYROXINE SODIUM INJ 100 MCG/5 ML VIAL 50 MCG IV PUSH (06:03)
[2019-11-18 06:15] LABS: Basophils Absolute Auto 0.1 K/mm3 (0.0-0.1); Basophils Percent Auto 0.5 % (0.2-1.2); Eosinophils Absolute Auto 0.2 K/mm3 (0-0.3); Eosinophils Percent Auto 1.6 % (0-4.4); Hematocrit 24.2 % (42.0-52.0); Immature Granulocyte Absolute 1.34 K/mm3 (0.00-0.031); Immature Granulocyte Percent A 8.9 % (0-0.5); Lymphocytes Absolute Auto 1.98 K/mm3 (0.9-3.2); Lymphocytes Percent Auto 13.1 % (18.3-44.2); Mean Corpuscular HGB Conc 33.1 g/dl (32-36); Mean Corpuscular Hemoglobin 27.6 pg (26-34); Mean Corpuscular Volume 83.4 fl (80-100); Mean Platelet Volume 12.6 fl (7.4-10.4); Monocytes Absolute Auto 1.3 K/mm3 (0.1-0.6); Monocytes Percent Auto 8.6 % (2.6-8.5); Neutrophils Absolute Auto 10.1 K/mm3 (1.3-6.7); Neutrophils Percent Auto 67.3 % (45.5-73.1); Platelet Count Result 105 k/mm3 (150-375); Red Cell Distribution Width 21.4 % (11.5-14.5); White Blood Count 15.1 K/mm3 (4.5-10.0)
[2019-11-18 06:23] LABS: Triglycerides 104 mg/dL (<150)
[2019-11-18 06:24] LABS: Lactic Acid 1.1 mmol/L (0.7-2.1)
[2019-11-18 06:25] LABS: Alanine Aminotransferase 10 U/L (4-50); Albumin Level 2.5 g/dL (3.5-5.1); Alkaline Phosphatase 80 U/L (38-126); Aspartate Amino Transferase 22 U/L (17-59); Bilirubin,Total 0.6 mg/dL (0.2-1.3); Blood Urea Nitrogen 10 mg/dL (9-20); Calcium 7.7 mg/dL (8.4-10.2); Carbon Dioxide 37 mmol/L (22-30); Chloride 100 mmol/L (98-107); Estimated Glomerular Filt Rate > 60; Glucose 107 mg/dL (75-110); Potassium 3.5 mmol/L (3.4-5.0); Sodium 140 mmol/L (137-145)
[2019-11-18] MEDS: PANTOPRAZOLE SODIUM IV 40 MG VIAL IV PUSH (08:01)
[2019-11-18] MEDS: ENOXAPARIN 30 MG/0.3 ML SYRINGE SUB-Q (08:01)
[2019-11-18] MEDS: FUROSEMIDE INJ 40 MG/4 ML VIAL 20 MG IV PUSH (08:08)
[2019-11-18] MEDS: POTASSIUM CHLORIDE 20 MEQ PACKET (FOR LIQUID) 40 MEQ PO ×2 (09:34→17:22)
[2019-11-18] MEDS: MIDAZOLAM HCL 2 MG/2 ML VIAL 1 MG IV PUSH (11:11)
--- NOTE | 2019-11-18 11:29 | PCDIET ---
Nutrition Follow-Up Complete: Inadequate energy intake related to multiple medical issues as evidenced by patient at 86% of ideal body weight with 7% weight loss x 1 month. Patient to meet estimated nutritional needs. Goal: Progressing towards goal. Continue with current goal. Pt current nutrition is NPO. Nutrition recommendation: Restart EN per MD orders. Start Vital 1.2 at 20ml/hr increasing to goal of 30ml/hr. Last recorded weight is 45.7 kg (up from assessed wt of 41.7kg) Bowel Motility: 11/14 (noted hypoactive BS from RN note on 11/16) Labs Reviewed:WBC 15.1, Alb 2.5, Hct 24.2, Hgb 8.0, Protein 6.0) Meds Noted:Synthyroid, Levophed, Vancomycin, Protonix, Cefepime Additional Notes: Pt was tolerating EN of Vital 1.2 at 20ml/hr. EN was temporarily held for imaging. MD okayed re-initiation of EN. Will start at 20ml/hr and advance to [place] of 30ml/hr today. Over 22hrs, EN at goal will provide 792 kcals meeting 50% of kcal needs. Recommend ultimate goal of 60ml/hr to meet pt needs. Advancing slowly due to risk of refeeding syndrome. Electrolytes normal today. Follow up every Friday/Friday. Follow daily in ICU rounds.
--- NOTE | 2019-11-18 12:34 | WPDINTPN ---
Progress Note: A&P Assessment and Plan (1) Septic shock: Code(s): A41.9 - Sepsis, unspecified organism; R65.21 - Severe sepsis with septic shock Status: Acute Assessment and Plan: patient presented with hypotension hypoxia, found to have pneumonia on his chest x-ray. Leukocytosis with bandemia - patient on Levophed, will maintain mean arterial pressure is greater than 65 mmHg - lactic acid is normal - continue cefepime and vancomycin - chest x-ray shows 1. Airspace opacities in the perihilar regions and at the lung bases with interval worsening in right perihilar region, consistent with pneumonia. 2. Stable moderate-sized right and small left pleural effusions. (2) Pneumonia: Qualifiers: Laterality: bilateral Lung location: unspecified part of lung Pneumonia type: due to unspecified organism Qualified Code(s): J18.9 - Pneumonia, unspecified organism Code(s): J18.9 - Pneumonia, unspecified organism Status: Acute Assessment and Plan: chest x-ray and ABGs reviewed, patient on high-flow oxygen via Airvo and non-rebreather mask with adequate O2 sats. patient is a mouth breather - continue antibiotics as above (3) Suspected COVID-19 virus infection: Code(s): R68.89 - Other general symptoms and signs Status: Acute Assessment and Plan: SARS-COV-2 PCR NEGATIVE ON 11/13/2019 - patient had a NEGATIVE COVID -19 test at the [facility] on 11/11/2019 (4) Acute renal failure (ARF): Qualifiers: Acute renal failure type: unspecified Qualified Code(s): N17.9 - Acute kidney failure, unspecified Code(s): N17.9 - Acute kidney failure, unspecified Status: Resolved Assessment and Plan: NERY resolved and creatinine back to baseline - patient presented with a creatinine of 2.2 likely due to dehydration, decreased p.o. intake, severe protein calorie malnutrition - elevated creatinine could also related to septic shock, hypotension, ATN, hypovolemia, infection - continue monitoring renal function electrolytes, electrolytes and urine output - replace potassium (5) Down's syndrome: Code(s): Q90.9 - Down syndrome, unspecified Status: Chronic Assessment and Plan: patient started on Xanax, BuSpar, Paxil - as patient is tachycardic and agitated. (6) Protein calorie malnutrition: Qualifiers: Protein-calorie malnutrition severity: severe Qualified Code(s): E43 - Unspecified severe protein-calorie malnutrition Code(s): E46 - Unspecified protein-calorie malnutrition Status: Acute Assessment and Plan: patient started on tube feeds, currently at 20 mL/hour and tolerating. (7) DVT prophylaxis: Code(s): Z29.9 - Encounter for prophylactic measures, unspecified Status: Acute Assessment and Plan: DVT prophylaxis: Lovenox and SCDs Stress ulcer prophylaxis: Protonix Additional Plan will discuss with mother and updated her with patient's condition and plan of care. Code status: Do not resuscitate critical care time spent: 33 minutes Due to a high probability of clinically significant, life threatening deterioration, the patient required my highest level of preparedness to intervene emergently and I personally spent this critical care time directly and personally managing the patient. This critical care time included obtaining a history; examining the patient; pulse oximetry; ordering and review of studies; arranging urgent treatment with development of a management plan; evaluation of patient's response to treatment; frequent reassessment; and discussions with other providers. It was exclusive of separately billable procedures and treating other patients and teaching time. Please see Assessment and Plan section and the rest of the note for further information on patient assessment and treatment Subjective Date/time seen: 11/18/19 12:34 Reason for consult: septic
[2019-11-18 12:45] LABS: Glucose Point of Care 113 (65-105)
[2019-11-18] MEDS: PAROXETINE 20 MG TABLET PO (13:07)
[2019-11-18] MEDS: ALPRAZOLAM 0.5 MG TABLET PO ×2 (13:07→17:22)
[2019-11-18] MEDS: busPIRone HCL 5 MG TABLET PO ×2 (13:08→20:58)
--- NOTE | 2019-11-18 16:52 | PM.IMPN ---
Progress Note: A&P Assessment and Plan (1) Septic shock: Code(s): A41.9 - Sepsis, unspecified organism; R65.21 - Severe sepsis with septic shock Status: Acute Assessment and Plan: Date of Service: 11/18/2019. Admitted with septic shock, pneumonia. Recently hospitalized with cholecystitis, now S/P cholecystectomy, and pneumonia. Patient with Down's syndrome. Patient has not had good oral intake for some time. COVID-19 testing done on 11/11/2019 at his nursing facility with results reported back as negative on 11/12/2019. Patient with down syndrome unable to provide any review of symptoms, he has a sepsis most likely secondary to pneumonia, chest x-ray shows worsening infiltrate, patient is being treated Cefepim and vancomycin seen by physician relations specialist, (2) Pneumonia: Qualifiers: Laterality: bilateral Lung location: unspecified part of lung Pneumonia type: due to unspecified organism Qualified Code(s): J18.9 - Pneumonia, unspecified organism Code(s): J18.9 - Pneumonia, unspecified organism Status: Acute Assessment and Plan: Chest x-ray today with continued diffuse bilateral airspace disease and bilateral pleural effusions right greater than left. No significant change from yesterday Remains on high-flow oxygen. Remains on IV antibiotics as noted above. Will continue to monitor. (3) Acute respiratory failure with hypoxia: Code(s): J96.01 - Acute respiratory failure with hypoxia Status: Acute Assessment and Plan: Result of pneumonia. Remains on Airvo high-flow oxygen with flow rate at 60 an FiO2 up to 100%. Change in code status as noted above with patient now no intubation along with no CPR. Continue IV antibiotics as noted. Will monitor closely. (4) Suspected COVID-19 virus infection: Code(s): R68.89 - Other general symptoms and signs Status: Acute Assessment and Plan: Did have negative testing at [facility] on 11/11/2019. Repeat COVID-19 testing initiated through the emergency room through [facility] with results repeat test on 11/11 was negative. (5) Hypokalemia: Code(s): E87.6 - Hypokalemia Status: Acute Assessment and Plan: Potassium even lower today at 2.6 this morning. Continue to replace with IV potassium. Will continue to monitor and adjust replacement as needed. (6) Acute renal failure (ARF): Qualifiers: Acute renal failure type: unspecified Qualified Code(s): N17.9 - Acute kidney failure, unspecified Code(s): N17.9 - Acute kidney failure, unspecified Status: Resolved Assessment and Plan: Result of infection, dehydration. Now resolved with creatinine 0.80 today. Will continue to monitor. (7) Dehydration: Code(s): E86.0 - Dehydration Status: Acute Assessment and Plan: Improved. IV fluids discontinued with starting of TPN as noted below. (8) Protein calorie malnutrition: Qualifiers: Protein-calorie malnutrition severity: severe Qualified Code(s): E43 - Unspecified severe protein-calorie malnutrition Code(s): E46 - Unspecified protein-calorie malnutrition Status: Acute Assessment and Plan: Has had poor intake for some time. TPN started. Will monitor with other issues. (9) Normocytic anemia: Code(s): D64.9 - Anemia, unspecified Status: Acute Assessment and Plan: Hgb decreased to 8.4 today but probably dilutional with IV fluids. Will monitor. Only transfuse if needed. (10) Hypothyroidism: Qualifiers: Hypothyroidism type: other Qualified Code(s): E03.8 - Other specified hypothyroidism Code(s): E03.9 - Hypothyroidism, unspecified Status: Chronic Assessment and Plan: Will continue IV levothyroxine for now. (11) Down's syndrome: Code(s): Q90.9 - Down syndrome, unspecified Status: Chronic Assessment and Plan: Resides at nursing facility. (12)
[2019-11-18 18:44] LABS: Glucose Point of Care 130 (65-105)
[2019-11-18] MEDS: MIRTAZAPINE 7.5 MG TABLET PO (20:53)
[2019-11-18] MEDS: IPRATROPIUM BR 0.02% INH SOLN 0.5 MG/2.5 ML VIAL INHALATION (23:30)
[2019-11-19] VITALS (9 sets, daily range): BP systolic 73–88; BP diastolic 46–63; PULSE 107–134; RESP 31–37; TEMP 37.3–37.5; O2SAT 52–97
[2019-11-19 00:24] LABS: Glucose Point of Care 125 (65-105)
[2019-11-19 04:47] LABS: Alveolar/Arterial O2 Gradient 605.8 mmHg; Base Excess ABG 11.5 mEq/l (+/-2.0); Carboxyhemoglobin 0.3 % THb (0-2.0); Fractional Inspired Oxygen 100 %; HCO3 ABG 35.7 mEq/l (22.0-26.0); Methemoglobin ABG 0.4 %THb (0-1.5); Oxygen Content ABG 12.1 %vol (16.0-22.0); Oxygen Saturation ABG 93.6 % (95.0-100.0); Oxyhemoglobin 91.3 % THb (90.0-100.0); PCO2 ABG 45.3 mmHg (35.0-45.0); PO2 ABG 61.9 mmHg (80.0-100.0); PO2 FiO2 Ratio Arterial Blood 0.62 %; Total Hemoglobin 9.4 g/dL (12.0-18.0)
[2019-11-19 04:50] LABS: Device NON-REBREATHER MASK; Modified Allen's Test Pass; Site Drawn LEFT RADIAL; pH ABG 7.514 (7.350-7.450)
[2019-11-19] MEDS: GUAIFENESIN 200 MG/10 ML UDC PO ×2 (04:50→05:38)
[2019-11-19] MEDS: LEVOTHYROXINE SODIUM INJ 100 MCG/5 ML VIAL 50 MCG IV PUSH (05:38)
[2019-11-19] MEDS: CENTRAL LINE FLUSH 10 ML IV PUSH (05:39)
[2019-11-19 06:07] LABS: Basophils Absolute Auto 0.1 K/mm3 (0.0-0.1); Basophils Percent Auto 0.6 % (0.2-1.2); Eosinophils Absolute Auto 0.3 K/mm3 (0-0.3); Eosinophils Percent Auto 1.8 % (0-4.4); Hematocrit 23.7 % (42.0-52.0); Hemoglobin 7.7 g/dL (14.0-18.0); Immature Granulocyte Absolute 1.15 K/mm3 (0.00-0.031); Immature Granulocyte Percent A 6.6 % (0-0.5); Immature Platelet Fraction Pct 16.4 % (0.9-11.2); Lymphocytes Absolute Auto 1.34 K/mm3 (0.9-3.2); Lymphocytes Percent Auto 7.7 % (18.3-44.2); Mean Corpuscular HGB Conc 32.5 g/dl (32-36); Mean Corpuscular Hemoglobin 27.6 pg (26-34); Mean Corpuscular Volume 84.9 fl (80-100); Mean Platelet Volume 13.1 fl (7.4-10.4); Monocytes Percent Auto 5.5 % (2.6-8.5); Neutrophils Absolute Auto 13.5 K/mm3 (1.3-6.7); Neutrophils Percent Auto 77.8 % (45.5-73.1); Platelet Count Result 141 k/mm3 (150-375); Red Blood Count 2.79 M/mm3 (4.6-6.20); Red Cell Distribution Width 21.5 % (11.5-14.5); White Blood Count 17.3 K/mm3 (4.5-10.0)
[2019-11-19 06:25] LABS: Alanine Aminotransferase 12 U/L (4-50); Albumin Level 2.5 g/dL (3.5-5.1); Alkaline Phosphatase 84 U/L (38-126); Aspartate Amino Transferase 24 U/L (17-59); Bilirubin,Total 0.3 mg/dL (0.2-1.3); Blood Urea Nitrogen 14 mg/dL (9-20); Calcium 7.9 mg/dL (8.4-10.2); Carbon Dioxide 36 mmol/L (22-30); Chloride 97 mmol/L (98-107); Estimated Glomerular Filt Rate > 60; Glucose 221 mg/dL (75-110); Magnesium 2.2 mg/dL (1.6-2.3); Phosphorus 2.4 mg/dL (2.5-4.5); Potassium 4.2 mmol/L (3.4-5.0); Sodium 136 mmol/L (137-145)
[2019-11-19 06:26] LABS: Lactic Acid 2.1 mmol/L (0.7-2.1)
[2019-11-19 06:34] LABS: Anisocytosis 2+ (NORMAL); Hypochromasia 1+ (NORMAL); Platelet Estimate Adequate (Adequate)
[2019-11-19] MEDS: IPRATROPIUM BR 0.02% INH SOLN 0.5 MG/2.5 ML VIAL INHALATION (07:19)
[2019-11-19] MEDS: ALBUTEROL SULFATE NEB 2.5 MG/0.5 ML INH 5 MG INHALATION (07:19)
[2019-11-19] MEDS: ALPRAZOLAM 0.5 MG TABLET PO (09:10)
[2019-11-19] MEDS: PANTOPRAZOLE SODIUM IV 40 MG VIAL IV PUSH (09:10)
[2019-11-19] MEDS: PRAVASTATIN SODIUM 20 MG TABLET 60 MG PO (09:10)
[2019-11-19] MEDS: PAROXETINE 20 MG TABLET PO (09:11)
[2019-11-19] MEDS: ENOXAPARIN 30 MG/0.3 ML SYRINGE SUB-Q (09:11)
[2019-11-19] MEDS: busPIRone HCL 5 MG TABLET PO (09:11)
--- NOTE | 2019-11-19 10:42 | PCDIET ---
Nutrition Follow-Up Complete: Nutrition Diagnosis: Inadequate energy intake related to multiple medical issues as evidenced by patient at 86% of ideal body weight with 7% weight loss x 1 month. Nutrition Goal: Patient to meet estimated nutritional needs. Goal not met. Comfort measures instituted and NG tube being pulled. Consult RD if plan of care should change and aggressive nutritional therapy is desired. Last recorded weight is 45.7 kg. No new weight obtained. Bowel Motility: BM x 4 on 11/17/19. Labs Reviewed: Hgb (7.7), Hct (23.7), Glu (221), Na (136), Cr (0.6), PO4 (2.9), Ca (7.9) Meds Noted: Albuterol, Cefepime, Levophed, Protonix, Vancomycin, Pepcid, Atrovent, Remeron (meds now being stopped) Additional Notes: Medial coccyx ulcer with no documented changes. No new recommendations at this time. NPO appropriate for comfort. Nutrition Monitoring and Evaluation: Follow up every Friday/Friday. Follow daily in ICU rounds.
--- NOTE | 2019-11-19 10:56 | PC.NURSE ---
Left message for Dr. Lunsford for change in condition. Family wishes to make comfort care.
--- NOTE | 2019-11-19 10:58 | PC.NURSE ---
Conference call with family at 10:00am, Members included mother Tala, sister Clair, brother Benjamin and the family decided to withdraw care for Lino Jackson and make him comfort measures only. Family arrived at bedside at 10:50 am.
[2019-11-19] MEDS: MORPHINE SULFATE 4 MG/ML INJ 5 MG IV PUSH (11:23)
[2019-11-19] MEDS: LORAZEPAM INJ 2 MG/ML VIAL IV PUSH ×4 (11:25→15:42)
--- NOTE | 2019-11-19 11:31 | PC.NURSE ---
Patient's oxygen removed and NG tube removed for comfort care.
[2019-11-19] MEDS: MORPHINE SULFATE 2 MG/ML INJ IV PUSH ×4 (12:29→15:42)
--- NOTE | 2019-11-19 12:59 | WPDINTPN ---
Progress Note: A&P Assessment and Plan (1) Septic shock: Code(s): A41.9 - Sepsis, unspecified organism; R65.21 - Severe sepsis with septic shock Status: Acute Assessment and Plan: patient presented with hypotension hypoxia, found to have pneumonia on his chest x-ray. Leukocytosis with bandemia - patient on Levophed, will maintain mean arterial pressure is greater than 65 mmHg - lactic acid is normal - continue cefepime and vancomycin - chest x-ray shows 1. Airspace opacities in the perihilar regions and at the lung bases with interval worsening in right perihilar region, consistent with pneumonia. 2. Stable moderate-sized right and small left pleural effusions. - Discussed at length with his mother, sister, brother and other family members on the conference call, they opted to make him comfort measures and withdrawal aggressive support. (2) Pneumonia: Qualifiers: Laterality: bilateral Lung location: unspecified part of lung Pneumonia type: due to unspecified organism Qualified Code(s): J18.9 - Pneumonia, unspecified organism Code(s): J18.9 - Pneumonia, unspecified organism Status: Acute Assessment and Plan: chest x-ray and ABGs reviewed, patient on high-flow oxygen via Airvo and non-rebreather mask with adequate O2 sats. patient is a mouth breather - continue antibiotics as above (3) Suspected COVID-19 virus infection: Code(s): R68.89 - Other general symptoms and signs Status: Acute Assessment and Plan: SARS-COV-2 PCR NEGATIVE ON 11/13/2019 - [facility] (4) Acute renal failure (ARF): Qualifiers: Acute renal failure type: unspecified Qualified Code(s): N17.9 - Acute kidney failure, unspecified Code(s): N17.9 - Acute kidney failure, unspecified Status: Resolved Assessment and Plan: NERY resolved and creatinine back to baseline - patient presented with a creatinine of 2.2 likely due to dehydration, decreased p.o. intake, severe protein calorie malnutrition - elevated creatinine could also related to septic shock, hypotension, ATN, hypovolemia, infection - continue monitoring renal function electrolytes, electrolytes and urine output (5) Down's syndrome: Code(s): Q90.9 - Down syndrome, unspecified Status: Chronic Assessment and Plan: patient started on Xanax, BuSpar, Paxil - as patient is tachycardic and agitated. (6) Protein calorie malnutrition: Qualifiers: Protein-calorie malnutrition severity: severe Qualified Code(s): E43 - Unspecified severe protein-calorie malnutrition Code(s): E46 - Unspecified protein-calorie malnutrition Status: Acute Assessment and Plan: patient started on tube feeds, currently at 20 mL/hour and tolerating. (7) DVT prophylaxis: Code(s): Z29.9 - Encounter for prophylactic measures, unspecified Status: Acute Assessment and Plan: DVT prophylaxis: Lovenox and SCDs Stress ulcer prophylaxis: Protonix Additional Plan Discussed at length with his mother, sister, brother and other family members on the conference call. Updated them with patient's condition, increased oxygen requirements, low oxygen saturations, lab and radiology report. After which the decided to make him comfort measures, withdraw aggressive care. Code status: Do not resuscitate / comfort measures critical care time spent:35 minutes Due to a high probability of clinically significant, life threatening deterioration, the patient required my highest level of preparedness to intervene emergently and I personally spent this critical care time directly and personally managing the patient. This critical care time included obtaining a history; examining the patient; pulse oximetry; ordering and review of studies; arranging urgent treatment with development of a management plan; evaluation
--- NOTE | 2019-11-19 16:53 | PM.DDS ---
Discharge Sum: Prov Provider Primary care physician: UNKNOWN,DOCTOR Admitting provider: Jennifer Mederos DO Discharge Sum: Summary Date and Time Date of admission: 11/13/19 23:59 Date of : 11/19/19 Time of : 16:01 Summary Details: Admitted with septic shock, pneumonia. Recently hospitalized with cholecystitis, now S/P cholecystectomy, and pneumonia. Patient with Down's syndrome. Patient has not had good oral intake for some time. COVID-19 testing done on 11/11/2019 at his nursing facility with results reported back as negative on 11/12/2019. Patient with down syndrome unable to provide any review of symptoms, he has a sepsis most likely secondary to pneumonia, chest x-ray shows worsening infiltrate, patient is being treated Cefepim and vancomycin seen by shoe lining fitter,, Patient with down syndrome with severe sepsis, family had decided withdraw care patient patient expiered on 11/19/2019. Additional Data Confirmation of as documented by pronouncing clinician: no pulse, no respirations, no heart sounds and pupils fixed and dilated Family: at bedside Additional persons at bedside: motor vehicle assembly supervisor Attending/PCP notified?: Yes Attending physician: Jnenifer Mederos, DO Was code activated?: No Autopsy requested?: No driver license examiner notified?: Yes Organ bank notified?: No Advance directives: No Hospice patient?: No
--- NOTE | 2019-11-19 17:08 | PC.NURSE ---
Patient at 16:00 with family at bedside. Patient DNR/DNI. Patient picked up by [facility] in [place], [place].
== END 2019-11-19 16:01 | disposition expired | DRG 871 ==
LOC: ANHED 22:30 → ANHICU 11-14 00:42
PROVIDERS: Hospitalist; Internal Medicine; Admitting Provider Family Medicine; Emergency Provider General Practice; Visit Provider Family Medicine
DX: A41.9 Sepsis, unspecified organism (principal); R65.21 Severe sepsis with septic shock; J18.9 Pneumonia, unspecified organism; J96.01 Acute respiratory failure with hypoxia; E43 Unspecified severe protein-calorie malnutrition; N17.9 Acute kidney failure, unspecified; E86.0 Dehydration; Z20.828 Contact with and (suspected) exposure to other viral communicable diseases; F41.9 Anxiety disorder, unspecified; F03.90 Unspecified dementia, unspecified severity, without behavioral disturbance, psychotic disturbance, mood disturbance, and anxiety; K21.9 Gastro-esophageal reflux disease without esophagitis; E03.9 Hypothyroidism, unspecified; E78.00 Pure hypercholesterolemia, unspecified; D64.9 Anemia, unspecified; M10.9 Gout, unspecified; D72.829 Elevated white blood cell count, unspecified; E87.6 Hypokalemia; Q90.9 Down syndrome, unspecified; Z90.49 Acquired absence of other specified parts of digestive tract; Z66 Do not resuscitate
CPT/HCPCS: 36415; 36556; 36600; 71045; 74018; 80053; 80202; 81001; 82375; 82565; 82728; 82805; 83050; 83605; 83615; 83735; 84100; 84145; 84478; 85025; 85055; 85380; 85610; 85730; 86140; 87040; 87077; 87086; 87088; 87186; 87635; 87804; 94640; 96361; 96365; 96367; 96375; 99291; A9270; C1751; C9113; J0131; J0692; J1650; J1940; J2060; J2250; J2270; J2370; J3370; J3475; J3480; J7030; J7050; J7060; J7120; P9047; U0003